=== PATIENT | male | born 1940 | race Caucasian/White ===

== ENCOUNTER → 2016-06-14 | Outpatient (CLI) | payer OTHER | LOC: BHCLAF 14:45 | PROVIDERS: ATTEND Internal Medicine Cardiovascular Disease | DX: I48.91 Unspecified atrial fibrillation (principal); I10 Essential (primary) hypertension | CPT/HCPCS: 93306-PO ==

== ENCOUNTER → 2016-07-04 | Outpatient (CLI) | payer OTHER | LOC: BHFA 14:00 | PROVIDERS: ATTEND Internal Medicine Cardiovascular Disease | DX: I48.91 Unspecified atrial fibrillation (principal); I50.32 Chronic diastolic (congestive) heart failure; I36.1 Nonrheumatic tricuspid (valve) insufficiency ==

== ENCOUNTER 2016-07-11 08:54 | Day surgery (SDC) | payer OTHER ==
[2016-07-11] MEDS ORDERED: DIAZEPAM 5 MG TAB PO ONE (08:59)
[2016-07-11] MEDS ORDERED: ASPIRIN EC 325 MG TAB PO ONE (08:59)
[2016-07-11] MEDS ORDERED: diphenhydrAMINE 25 MG CAP PO ONE (08:59)
[2016-07-11] MEDS ORDERED: NS 1,000 ML IV ONE (08:59)
[2016-07-11] MEDS ORDERED: FAMOTIDINE 20 MG TAB PO ONE (08:59)
[2016-07-11] MEDS ORDERED: BENZOCAINE UNIT DOSE SPRAY HURRICAINE MM ONE (08:59)
[2016-07-11] MEDS ORDERED: MIDAZOLAM 2 MG/2 ML VIAL IVP ONE (08:59)
[2016-07-11] MEDS ORDERED: fentaNYL 100 MCG/2 ML INJ IVP ONE (08:59)
--- NOTE | 2016-07-11 09:21 | CPEKG ---
Heart Rate: 80 RR Interval: 750 QRSD Interval: 84 QT Interval: 408 QTC Interval: 471 QRS [place]: 36 T Wave [place]: -31 EKG Severity - ABNORMAL ECG - EKG Impression: ATRIAL FIBRILLATION, V-RATE 68-94 EKG Impression: BORDERLINE T ABNORMALITIES, INFERIOR LEADS Electronically Signed By: Lamberto Grayson 11-Jul-2016 16:12:38
[2016-07-11 09:44] LABS: % IMMATURE GRANULYOCYTES 0.2 % (0.0-1.1); ABSOLUTE IMMATURE GRANULOCYTES 0.01 10^3/uL (0.00-0.10); ADD DIFF? NO; ADD MORPH? NO; ADD SCAN? NO; ATYPICAL LYMPHOCYTE FLAG 20 (0-99); FRAGMENT RBC FLAG 0 (0-99); HEMATOCRIT 40.1 % (40.0-51.0); HEMOGLOBIN 12.9 g/dL (13.7-17.5); LEFT SHIFT FLG 0 (0-99); LIPEMIA HEMOLYSIS FLAG 80 (0-99); MEAN CELL HEMOGLOBIN 29.9 pg (27.9-34.1); MEAN CELL HEMOGLOBIN CONCENTR. 32.2 g/dL (32.4-36.7); MEAN PLATELET VOLUME 10.4 fL (8.7-11.7); PLATELET CLUMPS FLAG 0 (0-99); PLATELET COUNT 252 10^3/uL (150-400); RED BLOOD CELL COUNT 4.31 10^6/uL (4.40-6.38)
[2016-07-11 09:46] LABS: INR 1.04 (0.83-1.16); PROTIME(PATIENT) 13.5 SEC (12.0-15.0)
[2016-07-11 09:54] LABS: ANION GAP 9 mEq/L (8-16); CALCIUM 9.6 mg/dL (8.5-10.4); CARBON DIOXIDE 31 mEq/l (22-31); CHLORIDE 99 mEq/L (97-110); CHOLESTEROL 172 mg/dL (140-220); CHOLESTEROL/HDL RATIO 3.74 RATIO (1.00-4.97); CREATININE 1.2 mg/dL (0.7-1.3); GLOMERULAR FILTRATION RATE 59; GLUCOSE 94 mg/dL (70-100); HIGH DENSITY LIPOPROTEIN 46 mg/dL (40-65); LDL/HDL RATIO 2.26 RATIO (1.00-3.64); LOW DENSITY LIPOPROTEIN 104 mg/dL (80-100); MAGNESIUM 2.3 mg/dL (1.6-2.3); NON-HIGH DENSITY LIPOPROTEIN 126 mg/dL (90-129); POTASSIUM 4.5 mEq/L (3.5-5.2); SODIUM 139 mEq/L (134-144); TRIGLYCERIDE 114 mg/dL (40-150); VERY LOW DENSITY LIPOPROTEINS 22 mg/dL (8-25)
[2016-07-11] MEDS ORDERED: fentaNYL 100 MCG/2 ML INJ ONE (10:46)
[2016-07-11] MEDS ORDERED: LIDOCAINE 1% 30 ML SDV ONE (10:46)
[2016-07-11] MEDS ORDERED: MIDAZOLAM 2 MG/2 ML VIAL ONE (10:46)
[2016-07-11] MEDS ORDERED: IOPAMIDOL (ISOVUE 370) 100 ML BTL IV ONE (10:47)
[2016-07-11] MEDS ORDERED: ATROPINE SULFATE 1 MG/10 ML SYR ONE (12:30)
[2016-07-11] MEDS ORDERED: HYDROCODONE/APAP 10/325 TAB PO ONE (13:00)
--- NOTE | 2016-07-11 13:37 | CPIP ---
[f rep st] INVASIVE CARDIAC PROCEDURE DATE OF PROCEDURE: 07/11/2016 PROCEDURES: 1. Coronary angiography. 2. Left ventriculography. 3. Right heart catheterization. INDICATION: Dyspnea on exertion, concerning for class II to III angina versus heart failure. ACCESS: Patient was prepped and draped in a sterile fashion. 1% lidocaine was used to anesthetize the right inguinal region. A 6-Welsh introducer sheath was placed selectively into the right commo n femoral artery via modified Seldinger technique. A 7-Welsh introducer sheath was placed selectiv yudith into the right common femoral vein via modified Seldinger technique. CORONARY ANGIOGRAPHY: A 6-Welsh JL4 was advanced to the left main coronary artery and images obtai nubia. The left main coronary artery bifurcated into an LAD and circumflex coronary arteries. The le ft main coronary artery appeared normal. The left anterior descending coronary artery gave rise to 2 diagonal branches. The left anterior descending coronary artery had mild luminal regularities thr oughout. There was no stenosis greater than 20%. The diagonal arteries were free of any significan t disease. The circumflex coronary artery gave rise to 2 OM branches. The circumflex coronary shay ry and its complement of OM branches appeared normal. A 6-Welsh JR4 was advanced to the right figueroa nary artery and images obtained. The right coronary artery was dominant. The right coronary artery had mid sequential 20% stenoses present. LEFT VENTRICULOGRAPHY: A 6-Welsh pigtail catheter was advanced into the left ventricle and images obtained. Left ventricle was normal in size with normal systolic function. Estimated ejection frac tion was 55%. RIGHT HEART CATHETERIZATION: Right heart catheter was advanced into the right atrium and pressure o btained. The right atrial pressure was 8 mmHg. The catheter was then advanced in the right ventric le and pressure obtained. The right ventricular pressure was 30/7 mmHg. Catheter was then advanced to the pulmonary artery and pressure obtained. The pulmonary artery pressure was 30/9 mmHg with a mean pulmonary artery pressure of 18 mmHg. The catheter was then advanced in wedge position and pre ssure obtained. The pulmonary capillary wedge pressure was 10 mmHg. Femoral artery saturation was 94%. Pulmonary artery saturation was 66%. Cardiac output 4.70, cardiac index 2.54. COMPLICATIONS: None. CONCLUSIONS: 1. Mild coronary artery disease without flow limitation. 2. Normal left ventricular size and systolic function. 3. No evidence of pulmonary hypertension. /[id number]/MODL
[2016-07-11] MEDS ORDERED: HYDROCODONE/APAP 5/325 TAB PO PRN (14:30)
== END 2016-07-11 16:45 | disposition home or self-care (01) ==
LOC: FCATH 08:54
PROVIDERS: ATTEND Internal Medicine Cardiovascular Disease
PROC: 4A023N8 Measurement of Cardiac Sampling and Pressure, Bilateral, Percutaneous Approach (ICD-10-PCS; principal; 2016-07-11)
PROC: B2161ZZ Fluoroscopy of Right and Left Heart using Low Osmolar Contrast (ICD-10-PCS; principal; 2016-07-11)
PROC: B2111ZZ Fluoroscopy of Multiple Coronary Arteries using Low Osmolar Contrast (ICD-10-PCS; principal; 2016-07-11)
PROC: B244ZZ4 Ultrasonography of Right Heart, Transesophageal (ICD-10-PCS; principal; 2016-07-11)
DX: I36.1 Nonrheumatic tricuspid (valve) insufficiency (principal); R06.02 Shortness of breath; I25.10 Atherosclerotic heart disease of native coronary artery without angina pectoris; I48.91 Unspecified atrial fibrillation; I50.32 Chronic diastolic (congestive) heart failure; Z88.2 Allergy status to sulfonamides
CPT/HCPCS: C1760; J0461; J1644; J2250; J3010; Q9967

== ENCOUNTER 2017-06-04 11:55 | Inpatient (IN) | payer OTHER ==
[2017-06-04] MEDS ORDERED: VANCOMYCIN HCL/NORMAL SALINE 250 ML IV ONE (12:51)
[2017-06-04] MEDS ORDERED: NS 1,000 ML IV ONE (12:51)
--- NOTE | 2017-06-04 12:57 | EDPHY ---
H & P Stated Complaint: R leg infection Time Seen by Provider: 06/04/17 12:26 HPI/ROS: CHIEF COMPLAINT: Right leg infection HISTORY OF PRESENT ILLNESS: Patient is a 76-year-old man with peripheral vascular disease as well as AFib on Coumadin who comes to the emergency department complaining of an infection to his right lower leg. He 1st noticed about 2 weeks ago and was started on Keflex by his primary doctor. This did not work and he stop taking it after for 5 days. He was then switched to Levaquin however he refuses to take this because of the side effects he read about. He has not had a fever. No chest pain or shortness of breath. He does report a history of CHF as well. REVIEW OF SYSTEMS: Constitutional: denies: chills, fever, recent illness, recent injury EENTM: denies: blurred vision, double vision, nose congestion Respiratory: denies: cough, shortness of breath Cardiac: denies: chest pain, irregular heart rate, lightheadedness, palpitations Gastrointestinal/Abdominal: denies: abdominal pain, diarrhea, nausea, vomiting, blood streaked stools Genitourinary: denies: dysuria, frequency, hematuria, pain Musculoskeletal: denies: joint pain, muscle pain Skin: See HPI Neurological: denies: headache, numbness, paresthesia, tingling, dizziness, weakness Hematologic/Lymphatic: denies: blood clots, easy bleeding, easy bruising Immunologic/allergic: denies: HIV/AIDS, transplant EXAM: GENERAL: Well-appearing, well-nourished and in no acute distress. HEAD: Atraumatic, normocephalic. EYES: Pupils equal round and reactive to light, extraocular movements intact, sclera anicteric, conjunctiva are normal. ENT: TMs normal, nares patent, oropharynx clear without exudates. Moist mucous membranes. NECK: Normal range of motion, supple without lymphadenopathy or JVD. LUNGS: Breath sounds clear to auscultation bilaterally and equal. No wheezes rales or rhonchi. HEART: Regular rate and rhythm without murmurs, rubs or gallops. ABDOMEN: Soft, nontender, normoactive bowel sounds. No guarding, no rebound. No masses appreciated. BACK: No CVA tenderness, no spinal tenderness, step-offs or deformities EXTREMITIES: Normal range of motion, no pitting or edema. No clubbing or cyanosis. NEUROLOGICAL: Cranial nerves II through XII grossly intact. Normal speech, normal gait. 5/5 strength, normal movement in all extremities, normal sensation PSYCH: Normal mood, normal affect. SKIN: Abscess like mast posterior right lower leg. Some purulent drainage when squeeze but extremely tender. Layers of moist skin. Source: Patient, Family Exam Limitations: No limitations - Personal History Current Tetanus/Diphtheria Vaccine: No Current Tetanus Diphtheria and Acellular Pertussis (TDAP): No - Medical/Surgical History Hx Asthma: No Hx Chronic Respiratory Disease: No Hx Diabetes: No Hx Cardiac Disease: Yes Hx Renal Disease: No Hx Cirrhosis: No Hx Alcoholism: No Hx HIV/AIDS: No Hx Splenectomy or Spleen Trauma: No Other PMH: appy, tonsilectomy, R hip replacement, cardiac ablation, afib, CVA, LARISA inguinal hernias, hydrocele L testicle, arthritis, - Family History Significant Family History: No pertinent family hx - Social History Smoking Status: Former smoker Alcohol Use: Sober Constitutional: Initial Vital Signs Temperature (C) 36.8 C 06/04/17 12:08 Heart Rate 97 06/04/17 12:08 Respiratory Rate 16 06/04/17 12:08 Blood Pressure 102/66 06/04/17 12:08 O2 Sat (%) 94 06/04/17 12:08 O2 Delivery Mode Room Air O2 (L/minute) 2 Allergies/Adverse Reactions: Sulfa (Sulfonamide Antibiotics) Allergy (Unknown, Verified 06/05/17 00:58) amiodarone [Amiodarone] Allergy (Verified 06/04/17 12:05) amlodipine Allergy (Verified 06/05/17 00:58) Home Medications: Medication Instructions Recorded Aspirin EC [Aspirin EC 81 mg (*)] 81 mg PO HS 06/04/17 Furosemide [Lasix 20 MG (*)] 20 mg PO BID@0730,13 06/04/17 Furosemide [Lasix 80 MG (*)] 80 mg PO BID@0730,13 06/04/17 HYDROcodone/APAP [[place] 1 tab PO Q6 PRN 06/04/17 10325 (*)] Herbals/Supplements -Info Only 1 ea PO DAILY 06/04/17 Metoprolol Tartrate [Lopressor 50 50 mg PO BID 06/04/17 mg (*)] Spironolactone [Aldactone 25 MG 25 mg PO DAILY 06/04/17 (*)] Temazepam 30 mg PO HS PRN 06/04/17 Warfarin Sodium [Coumadin 5MG (*)] 5 mg PO DAILY16 06/04/17 morphINE SR [MS Contin/Oramorph SR 30 mg PO BID 06/04/17 30 mg (*)] Medical Decision Making ED Course/Re-evaluation: Patient will certainly need to be admitted to the hospital. We will initiate sepsis workup. I think he will need I and D likely under anesthesia considering the pain he is having. 2:30 p.m. the patient's lactate is normal. He is not septic. I do think he will require admission because he has failed outpatient oral antibiotic therapy and has rather severe pain. I discussed the case with Dr. Pena who will admit to the medical service. I will consult general surgery. 3:00 p.m. I discussed the case with Dr. Christian Carrington who will consult. Differential Diagnosis: Partial list of the Differential diagnosis considered include but were not limited to; peripheral vascular disease, abscess, cellulitis and although unlikely based on the history and physical exam, I also considered osteomyelitis , fasciitis, diabetes. - Data Points Laboratory Results: Laboratory Results 06/04/17 12:40 06/04/17 12:40 Medications Given: Acetaminophen (Tylenol) 650 mg PO Q4HRS PRN PRN Reason: Pain, Mild/Fever, Can Take PO Stop: 12/01/17 14:51 Last Admin: 06/04/17 22:35 Dose: 325 mg Hydrocodone Bitart/Acetaminophen ([place] 10/325) 1 tab PO Q6 PRN PRN Reason: Pain, Breakthrough Stop: 06/14/17 15:12 Last Admin: 06/05/17 00:23 Dose: 1 tab Ceftriaxone Sodium/Dextrose (Rocephin 1 Gm (Premix)) 50 mls @ 100 mls/hr IV DAILY DAV PRN Reason: Protocol Stop: 07/04/17 16:59 Last Admin: 06/04/17 17:37 Dose: 50 mls Metoprolol Tartrate (Lopressor) 50 mg PO BID DAV Stop: 12/01/17 20:59 Last Admin: 06/05/17 00:36 Dose: Not Given Morphine Sulfate (Ms Contin/Oramorph Sr) 30 mg PO BID DAV Stop: 06/14/17 20:59 Last Admin: 06/04/17 22:32 Dose: 30 mg Morphine Sulfate (Morphine) 2 - 4 mg IVP Q1HR PRN PRN Reason: Pain, Severe Unable to Take PO Stop: 06/15/17 02:03 Last Admin: 06/05/17 04:53 Dose: 2 mg Discontinued Medications Bacitracin (Bacitracin Syringe) Confirm Administered Dose 50,000 units IRR .STK- MED ONE Stop: 06/04/17 19:11 Last Admin: 06/05/17 01:59 Dose: Not Given Bupivacaine HCl (Sensorcaine 0.5% Vial) Confirm Administered Dose 30 ml .ROUTE .STK-MED ONE Stop: 06/04/17 19:09 Last Admin: 06/05/17 02:00 Dose: Not Given Fentanyl (Sublimaze) 25 - 100 mcg IVP Q5M PRN PRN Reason: PACU, IMMEDIATE Pain control Stop: 06/05/17 03:23 Last Admin: 06/05/17 02:40 Dose: 50 mcg Hydromorphone HCl (Dilaudid) 1 mg IVP EDNOW ONE Stop: 06/04/17 12:59 Last Admin: 06/04/17 13:23 Dose: 1 mg Hydromorphone HCl (Dilaudid) 0.1 - 0.4 mg IVP Q10M PRN PRN Reason: PACU, PAIN Stop: 06/05/17 03:23 Last Admin: 06/05/17 02:40 Dose: 0.4 mg Vancomycin/Sodium Chloride (Vancomycin 1 Gm (Premix)) 250 mls @ 250 mls/hr IV EDNOW ONE PRN Reason: Protocol Stop: 06/04/17 13:50 Last Admin: 06/04/17 13:41 Dose: 250 mls Sodium Chloride (Ns) 1,000 mls @ 0 mls/hr IV EDNOW ONE; Wide Open PRN Reason: Protocol Stop: 06/04/17 12:52 Last Admin: 06/04/17 13:22 Dose: 1,000 mls Lactated Ringer's (Lr) 1,000 mls @ 0 mls/hr IV ONCE ONE PRN Reason: KVO Stop: 06/05/17 00:49 Last Admin: 06/05/17 00:50 Dose: 1,000 mls Polymyxin B Sulfate (Polymyxin B Syringe) Confirm Administered Dose 500,000 unit IRR .STK-MED ONE Stop: 06/04/17 19:09 Last Admin: 06/05/17 02:00 Dose: Not Given Departure - Departure Disposition: [facility] Inpatient Acute Clinical Impression: Abscess of right leg Condition: Fair
[2017-06-04] MEDS ORDERED: HYDROmorphONE/DILAUDID 1 MG/ML INJ IVP ONE (12:58)
[2017-06-04 13:12] LABS: PLATELET COUNT 221 10^3/uL (150-400)
[2017-06-04 13:13] LABS: INR 2.32 (0.83-1.16); PROTIME(PATIENT) 25.5 SEC (12.0-15.0)
[2017-06-04] MEDS ORDERED: ONDANSETRON 4 MG/2 ML VIAL IVP PRN (14:52)
[2017-06-04] MEDS ORDERED: ACETAMINOPHEN 325 MG TAB PO PRN (14:52)
[2017-06-04] MEDS ORDERED: ONDANSETRON DISINTEGRATING 4 MG TAB PO PRN (14:52)
--- NOTE | 2017-06-04 15:40 | PDCONSULT ---
[employer] Note: 76 y/o male with right calf infection treated as an outpatient for the past week with Keflex. His pain became worse today and he came to the [facility] ED for evaluation. Surgical consultation was requested Past Medical History PMH: - Personal History Current Tetanus/Diphtheria Vaccine: Unsure Current Tetanus Diphtheria and Acellular Pertussis (TDAP): Unsure - Medical/Surgical History Hx Asthma: No Hx Chronic Respiratory Disease: Yes Hx Cardiac Disease: Yes Hx Diabetes: No Hx Renal Disease: No Hx Alcoholism: No Hx Cirrhosis: No Hx HIV/AIDS: No Hx Splenectomy or Spleen Trauma: No Other PMH: appy, tonsilectomy, R hip replacement, cardiac ablation, afib, CVA, LARISA inguinal hernias, hydrocele L testicle, arthritis, - Family History Significant Family History: No pertinent family hx - Social History Smoking Status: Former smoker Alcohol Use: Rarely Drug Use: None Additional Social History: Daughter at bedside/ Review of Systems Review of Systems: - Review of Systems Constitutional: recent injury (fell on his right side about one month ago and has had hip pain since then) Respiratory: shortness of breath, other (Hx [place] exposure at [place]) Cardiac: edema Gastrointestinal/Abdominal: no symptoms reported Genitourinary: other (wears a truss for bilateral inguinal hernias) Musculoskelatal: back pain (chronic following injury 1970), joint pain (right hip) Skin: other (swelling right lateral calf started about one week ago/spontaneous drainage-not improved with po Keflex) Neurological: other (Hx CVA) - Physical Exam Constitutional: chronically ill appearing, uncomfortable Eyes: anicteric sclera Cardiovascular: systolic murmur, irregularly irregular Respiratory: reduced air movement, bronchial breath sounds Gastrointestinal: soft, non-tender abdomen Genitourinary: no bladder fullness, no bladder tenderness, other (wearing a truss/no inguinal tenderness/right scrotal hernia) Skin: other (decreased capillary refill bilateral feet/pedal pulses not palpable ) Musculoskeletal: joint tenderness (right hip), other (6 x 8 cm raised open wound right mid lateral calf/surrounding erythema/moderate necrotic tissue at center) Psychiatric: interacting appropriately, other (in pain) Assessment & Plan Assessment: Abscess of right leg (Acute) Anticoagulation with Coumadin INR 2.3 Hx CHF with moderated edema chronic respiratory disease/Berrylium exposure/former smoker Peripheral Vascular disease Hx Prostate Cancer Bilateral inguinal hernias Recent (2016) right NICA with pain after fall one month ago Chronic Back pain post remote injury Plan: Reverse anticoagulation with FFP to OR for operative debridement when INR 1.5-1.8 possible wound vac application I discussed the procedure with Mr. Devine and his daughter including the expected recovery and riske. Informed consent was obtained Ofelia Carrington MD, FACS
--- NOTE | 2017-06-04 17:22 | GHP ---
[f rep st] HISTORY AND PHYSICAL DATE OF ADMISSION: 06/04/2017 CHIEF COMPLAINT: Right leg wound. HISTORY OF PRESENT ILLNESS: A 76-year-old male with history of diastolic heart failure, atrial fibrillation, stroke in June 2016, presenting with a right calf leg wound. He said he noticed a lump in the back of his calf about a month ago, the size of a walnut. It was bulging. It has become larger and then started leaking clear yellowish fluid a week ago. Denies any fevers, chills, sweats. No nausea, vomiting, diarrhea. No headaches. No myalgias. He has underwent right NICA in November at [facility] [place]. He has had pain in that hip for about a month after falling. He hit his ribs during that fall but denies trauma to the leg. He has chronic back pain, which he takes MS Contin. He went to his PCP, was treated with Keflex. This was not working so they wanted to switch him to Levaquin, but the patient declined this medication after reading all the side effects, thus he came to the ER. REVIEW OF SYSTEMS: I completed a 10-point review of systems. 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 PAST MEDICAL HISTORY: Diastolic heart failure. Stroke in June 2016 at [facility] [place]. Atrial fibrillation. Mild coronary disease on catheterization in 2016. Severe TR on AMANDA in June 2016. History of atrial arrhythmias. Prostate cancer. Beryllium lung disease. Chronic back pain. Bilateral hernias. PAST SURGICAL HISTORY: Right NICA in October 2016, radical prostatectomy, history of ablation. SOCIAL HISTORY: Lives in [facility]. He is . No alcohol, tobacco , or illicits. FAMILY HISTORY: Mother with a stroke. MEDICATIONS: Lasix 100 mg twice daily, herbal supplement, aspirin 81 mg daily, Joseph as needed, temazepam 30 mg at bedtime p.r.n., spironolactone 25 mg daily, MS Contin 30 mg twice daily, metoprolol 50 mg twice daily, Coumadin 5 mg daily. ALLERGIES: Sulfa, amiodarone. PHYSICAL EXAMINATION: VITAL SIGNS: Temperature 36.8, blood pressure 136/101, heart rate 70s, respirations 18, 98% on room air. GENERAL: Thin male lying in bed, uncomfortable. HEENT: PERRLA. Mildly dry mucous membranes. CV: Regular rate and rhythm. LUNGS: Diminished but clear. ABDOMEN: Soft, nontender. Has a binder in place. : No Argueta. MUSCULOSKELETAL: Left calf with golf ball sized wound, with some necrosis and weeping serosanguineous yellowish discharge. Erythema of bilateral legs with edema. Pedal pulses not palpable with palpation. NEUROLOGIC: 2 through 12 intact. PSYCH: Alert and oriented x3. LABS: WBC is 5, hemoglobin 12, hematocrit 37, platelets 221. Lactate 1.1. Sodium 140, potassium 4.2, chloride 97, anion gap 14, BUN 25, creatinine 1, glucose 106, calcium 9, total bilirubin 0.7. INR is 2.3. Hip x-ray is pending. Chest x-ray, personally reviewed by me, reticular pattern bilaterally, hyperexpanded lungs. No infiltrate. ASSESSMENT AND PLAN: 1. Right calf abscess/cellulitis: evaluated by Dr. Carrington, plans for debridement today. We will give FFP to reverse INR. Wound culture 1/5 positive for Serratia. IV vancomycin/ceftriaxone. Consult Infectious Disease. Will likely need a wound VAC. 2. Atrial fibrillation: Again, will need reversal of INR. We will continue beta ramakrishna. 3. Diastolic heart failure: Continue beta ramakrishna, Lasix. 4. Chronic back pain: MS Contin and Joseph. 5. Hip pain: He does report pain in that hip. We will start with an x-ray, but would be concern of seeding to that joint. Blood cultures were drawn in the emergency department. 6. History of prostate cancer status post prostatectomy. 7. Diet: N.p.o. for now. 8. Deep venous thrombosis prophylaxis: INR is supratherapeutic. DISPOSITION: Patient warrants inpatient admission for IV antibiotics, surgical intervention, and Infectious Disease consultation. /[id number]/MODL MTDD
[2017-06-04] MEDS: HYDROCODONE/APAP 10/325 TAB PO PRN (18:19)
[2017-06-04] MEDS ORDERED: POLYMYXIN B SULFATE 500,000 UNIT/10 ML SYR IRR ONE (19:08)
[2017-06-04] MEDS ORDERED: BUPIVACAINE 0.5% 30 ML SDV ONE (19:08)
[2017-06-04] MEDS ORDERED: BACITRACIN 50,000 UNITS/10 ML SYR IRR ONE (19:10)
--- NOTE | 2017-06-04 19:44 | SOAPPROG ---
Downtime Inpatient MD Late Entry SOAP Note: Patient has not yet received FFP/will delay surgery until after FFP transfused and INR confirms appropriate decline in INR. Discussed with patient's RN. Ofelia Carrington MD, FACS
--- NOTE | 2017-06-04 20:03 | CPEKG ---
Heart Rate: 92 RR Interval: 652 QRSD Interval: 92 QT Interval: 360 QTC Interval: 446 QRS [place]: 77 T Wave [place]: -31 EKG Severity - ABNORMAL ECG - EKG Impression: ATRIAL FIBRILLATION, V-RATE 81-92 EKG Impression: LOW VOLTAGE IN FRONTAL LEADS EKG Impression: BORDERLINE R WAVE PROGRESSION, ANTERIOR LEADS EKG Impression: NONSPECIFIC T ABNORMALITIES, DIFFUSE LEADS Electronically Signed By: Beni Bucio 05-Jun-2017 07:28:50
[2017-06-04] MEDS: morphINE SR 30 MG TAB PO SCH (22:32)
[2017-06-04 23:55] LABS: INR 1.99 (0.83-1.16); PROTIME(PATIENT) 22.7 SEC (12.0-15.0)
[2017-06-05] MEDS: HYDROCODONE/APAP 10/325 TAB PO PRN ×3 (00:23→19:59)
[2017-06-05] MEDS: METOPROLOL TARTRATE 50 MG TAB PO SCH ×3 (00:36→22:23)
[2017-06-05] MEDS ORDERED: LR 1,000 ML IV ONE (00:48)
[2017-06-05] MEDS ORDERED: PROPOFOL 200 MG/20 ML VIAL ONE (01:12)
[2017-06-05] MEDS ORDERED: fentaNYL 100 MCG/2 ML INJ ONE ×4 (01:12→02:37)
[2017-06-05] MEDS ORDERED: LIDOCAINE 2% 5 ML SDV ONE (01:13)
--- NOTE | 2017-06-05 02:00 | POSTANESTH ---
Post Anesthetic Evaluation Cardiovascular Status: Normal, Stable Respiratory Status: Normal, Stable Level of Consciousness/Mental Status: Can Participate in Eval, Mildly Sleepy, Arousable Pain Control: Adequate, Prn Tx Ordered Nausea/Vomiting Control: Adequate, Prn Tx Ordered Complications Possibly Related to Anesthesia: None Noted
--- NOTE | 2017-06-05 02:01 | PDANEPAE ---
ANE History of Present Illness Calf I&D ANE Past Medical History - Pulmonary History Hx Oxygen in Use at Home: No Hx Sleep Apnea: Yes Sleep Apnea Screening Result - Last Documented: Positive - Endocrine History Hx Diabetes: No ANE Review of Systems Review of Systems: ANE Patient History - Allergies Allergies/Adverse Reactions: Sulfa (Sulfonamide Antibiotics) Allergy (Unknown, Verified 06/05/17 00:58) amiodarone [Amiodarone] Allergy (Verified 06/04/17 12:05) amlodipine Allergy (Verified 06/05/17 00:58) - Home Medications Home Medications: Aspirin EC [Aspirin EC 81 mg (*)] 81 mg PO HS 06/04/17 [Last Taken 06/03/17] Furosemide [Lasix 20 MG (*)] 20 mg PO BID@0730,13 06/04/17 [Last Taken 06/03/17] Furosemide [Lasix 80 MG (*)] 80 mg PO BID@0730,13 06/04/17 [Last Taken 06/03/17] HYDROcodone/APAP 10/325 [[place] 10/325 (*)] 1 tab PO Q6 PRN 06/04/17 [Last Taken 06/03/17] Herbals/Supplements -Info Only 1 ea PO DAILY 06/04/17 [Last Taken 06/03/17] Metoprolol Tartrate [Lopressor 50 mg (*)] 50 mg PO BID 06/04/17 [Last Taken 02/10] Spironolactone [Aldactone 25 MG (*)] 25 mg PO DAILY 06/04/17 [Last Taken ] Temazepam 30 mg PO HS PRN 06/04/17 [Last Taken 06/03/17] Warfarin Sodium [Coumadin 5MG (*)] 5 mg PO DAILY16 06/04/17 [Last Taken 06/03/17 ] morphINE SR [MS Contin/Oramorph SR 30 mg (*)] 30 mg PO BID 06/04/17 [Last Taken 06/03/17] - NPO status NPO Since - Liquids (Date): 06/04/17 NPO Since - Liquids (Time): 10:00 NPO Since - Solids (Date): 06/04/17 NPO Since - Solids (Time): 10:00 - Smoking Hx Smoking Status: Never smoked - Alcohol Use Alcohol Use: Rarely ANE Labs/Vital Signs - Labs Result Diagrams: 06/04/17 12:40 06/04/17 12:40 - Vital Signs Blood Pressure: 96/51 Heart Rate: 79 Respiratory Rate: 16 O2 Sat (%): 97 Height: 175.26 cm Weight: 60.7 kg ANE Physical Exam - Airway Neck exam: decreased ROM Mallampati Score: Class 2 Mouth exam: poor dentition - Pulmonary Pulmonary: reduced air movement - Cardiovascular Cardiovascular: regular rate and rhythym - ASA Status ASA Status: III, E ANE Anesthesia Plan Anesthesia Plan: GA w LMA
--- NOTE | 2017-06-05 02:01 | POSTOPPROG ---
Post Op Note Date of Operation: 06/05/17 Surgeon: Christian Carrington (, FACS) Anesthesiologist: Dave Rasmussen DO Anesthesia: LMA Pre-op Diagnosis: right posterior-lateral calf abscess Post-op Diagnosis: right posterior-lateral calf abscess Procedure: excision of right posterior-lateral calf abscess and necrotic tissue Inf/Abcess present in the surg proc area at time of surgery?: Yes Depth: Deep Incisional (Fascial) EBL: 50-100 (75ml) Complications: none Specimen(s): necrotic skin, subcutaneous tissue for permanent section and culture
[2017-06-05] MEDS ORDERED: HYDROmorphONE/DILAUDID 1 MG/ML INJ ONE ×2 (02:13→02:38)
[2017-06-05] MEDS: HYDROmorphONE/DILAUDID 1 MG/ML INJ IVP PRN ×3 (02:18→02:40)
[2017-06-05] MEDS: fentaNYL 100 MCG/2 ML INJ IVP PRN ×3 (02:18→02:40)
[2017-06-05] MEDS ORDERED: ONDANSETRON 4 MG/2 ML VIAL IVP PRN (02:22)
[2017-06-05] MEDS ORDERED: ALBUTEROL 3 ML DEYVIAL IH PRN (02:22)
[2017-06-05] MEDS ORDERED: NALOXONE HCL 0.4 MG/ML INJ IVP PRN (02:22)
[2017-06-05 05:35] LABS: INR 2.28 (0.83-1.16); PROTIME(PATIENT) 25.1 SEC (12.0-15.0)
--- NOTE | 2017-06-05 07:22 | GOP ---
[f rep st] OPERATIVE REPORT DATE OF OPERATION: SURGEON: Christian Carrington MD ANESTHESIA: General by laryngeal mask. ANESTHESIOLOGIST: Dave Rasmussen D.O. PREOPERATIVE DIAGNOSIS: Right posterolateral calf abscess. POSTOPERATIVE DIAGNOSIS: Right posterolateral calf abscess. PROCEDURE PERFORMED: Wide excision of right posterolateral calf abscess, including necrotic skin and deep subcutaneous tissues. FINDINGS: Approximately 4 x 6 cm raised area of necrotic skin and subcutaneous tissues, with a centr al draining fistula tract extending into the deep subcutaneous tissues and the superficial fascia, bu t no involvement of the musculature. Excised tissue submitted for permanent section and deep wound c ultures obtained. ESTIMATED BLOOD LOSS: For the procedure: 75 mL. DESCRIPTION OF PROCEDURE: After informed consent was obtained, the patient was brought to the operat ing room and placed under general anesthesia. He had received 3 units of fresh frozen plasma. His I NR after the first 2 was 1.99, and I elected to proceed with surgery while the third unit was infusin g. The right leg was prepped and draped in usual fashion. Before proceeding, a time-out and identif ication of the patient were performed. The large raised purplish lesion on the right posterolateral calf was excised circumferentially with a scalpel down to healthy bleeding tissue. This approached t he deep fascia, but did not involve the muscle. Hemostasis was secured with cautery. The surroundin g skin was macerated, excoriated, and had significant superficial dermolysis, and I elected not to pl richa a wound VAC initially. The deep wound was covered with Adaptic gauze, followed by saline-moisten ed Kerlix, and wrapped circumferentially. COMPLICATIONS: None . /[id number]/MODL
[2017-06-05] MEDS: FUROSEMIDE 20 MG TAB PO SCH ×2 (08:57→13:28)
[2017-06-05] MEDS: FUROSEMIDE 80 MG TAB PO SCH ×2 (08:57→13:28)
[2017-06-05] MEDS: LR 1,000 ML IV SCH (08:57)
--- NOTE | 2017-06-05 08:57 | HOSPPROG ---
Hospitalist Progress Note Assessment/Plan: DIAGNOSES: -R calve abscess, presumably bacterial w pending cx's; s/p surgical debridement/ excision of skin and subQ tissues 06/04 -hypotension: I do not think he is currnetly septic, ? if he might be bleeding occultly overnight, vs other cause -acute anemia has developed overnight with no visible bleeding or symptoms of bleeding; cause uncertain -I did review past lab data, has chronic Hg 12+ last measured a month ago before yesterday -R hip pain is resolved since yest: xrays with no concerning findings -chronic berylliosis, Interstitial Lung seen on current CXR; currently stable -no pulmonary HTN a year ago on R heart cath here -Heart Disease stable/compensated at present: -AFib, intermittent on chronic coumadin, currently therapeutic -Mild CAD noted on angiography one year ago, -Diastolic CHF, Tricuspid Regurg -chronic none radicular back pain, severe is at his baseline at this time; this is fairly debilitated for him and will slow his recovery to full ambulation The appears overall early stable overnight but the low blood pressures an new anemia of fairly concerning. To need to be followed closely in the may need to do surge for cause anemia. I did him his wound with the fashion photographer today, the wound bed looks good there is minimal serous fluid with no significant bleeding. There is still some surrounding cellulitis and quite bit of tenderness. PLANS: -continue current antibiotics pending cultures -continue wound care and reviews with wound care nurse and Dr. Carrington -repeat hemoglobin at mid day today, follow for any signs of bleeding. If anemia is confirmed and no sign of bleeding, will check for hemolysis -will hold Coumadin and aspirin at this point, with further consideration of when to resume based upon his blood counts and whether we find any bleeding. 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, 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: Exam: alert oriented skin warm dry color ok; capillary refill is slightly diminished but fingers and toes are warm resps not labored lungs clear BSs heart regular abd soft nondistended nontender, bowel sounds present limbs I reviewed his wound with the fashion photographer, there is some surrounding cellulitis with edema redness and tenderness, the wound bed itself is clean without purulent drainage minimal serosanguineous drainage no concerning acute issue at this time no fluctuance on my exam iv site ok Laboratory data: Hemoglobin dropped from 12 to 8 since last night, I review past records and his hemoglobin has been running in the 12.5 range in the past, most recently measured last month Platelets have dropped slightly overnight to 120 Metabolic panel remained stable I did review the images for his hip x-ray from last evening, he has a by pole prosthesis in place well seated with no signs of loosening, no other skeletal abnormalities and no air other soft tissue abnormality Objective: Vital Signs Temp Pulse Resp BP Pulse Ox 36.8 C 81 16 93/50 L 95 06/05/17 06:08 06/05/17 06:08 06/05/17 06:08 06/05/17 06:08 06/05/17 06:08 Laboratory Results 06/05/17 05:00 06/05/17 05:00 06/04/17 06/05/17 06/06/17 06:59 06:59 06:59 Intake Total 2933 Output Total 525 Balance 2408 PT 25.1 SEC (12.0-15.0) H 06/05/17 05:00 INR 2.28 (0.83-1.16) H 06/05/17 05:00 - Time Spent With Patient Time Spent with Patient: greater than 35 minutes Time Spent with Patient: Greater than 35 minutes spent on this patients care, greater than 50% of time spent counseling, educating, and coordinating care regarding the above mentioned plan. ICD10 Worksheet Patient Problems: Problems Problem Status Onset Abscess of right leg Acute
[2017-06-05] MEDS ORDERED: Herbals/Supplements -Info Only PO SCH (09:00)
[2017-06-05] MEDS ORDERED: ENOXAPARIN 60 MG/0.6 ML SYR SC SCH (09:00)
[2017-06-05] MEDS: morphINE SR 30 MG TAB PO SCH ×2 (09:27→22:23)
[2017-06-05] MEDS: SPIRONOLACTONE 25 MG TAB PO SCH (09:27)
--- NOTE | 2017-06-05 09:39 | WOCRNPDOC ---
WOCRN Advanced Assessment Note - Skin Integrity Problem, Advanced Assess Right Lateral Calf Abscess Dressing Type: Adaptic Touch (x2), Gauze, Kerlix Dressing Description: Clean/Dry, Intact Exudate Amount: Moderate Exudate Characteristic(s): Serosanguinous Integumentary Issue Intervention: Dressing Changed, Dressing Initialed & Dated Aleena Wound Tissue: Erythema, Painful/Tender Wound Bed Color: Red, Yellow Wound Bed Constitution: Red/[place] - Non Granular Tissue, Subcutaneous Fat Site Measurement - Head-to-Toe Length X Width X Depth (cm): 3x2.5x1 Skin Integrity Problem Comment: Full thickness wound not involving muscle. Flushed with ns and gauze. CPro Collagen applied to wound bed and covered with hydrofera blue transfer and then applied sorbion sachet border to cover both. Wound care will round again Friday. Please try and leave collagen base intact at least until Friday or Friday.
--- NOTE | 2017-06-05 11:03 | GCON ---
[f rep st] CONSULTATION INPATIENT INFECTIOUS DISEASE CONSULTATION REFERRING PHYSICIAN: Truong Fuentes MD REASON FOR REFERRAL: Right calf abscess. HISTORY OF PRESENT ILLNESS: Patient is a 76-year-old male, who had approximately a 1-month history o f a growing mass that was painful on the back of his right calf. It started draining serous fluid ap proximately 1 week ago. He failed Keflex therapy as an outpatient. He presented to the emergency ro om on 06/04/2017 and was referred to General Surgery and underwent an incision and [facility]/05/2017. The patient is currently resting in his hospital bed. He notes remy t he is feeling much better this morning. No new fevers or chills. No rash. No diarrhea. PAST MEDICAL HISTORY: 1. Diastolic heart failure. 2. Cerebrovascular accident. 3. Atrial fibrillation. 4. Coronary artery disease. 5. Tricuspid regurgitation. 6. Prostate cancer. 7. 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 8. Chronic back pain. PAST SURGICAL HISTORY: 1. Status post radical prostatectomy. 2. Status post cardiac ablation. 3. Status post right total hip arthroplasty. ANTIBIOTICS: 1. Ceftriaxone. 2. Vancomycin. ALLERGIES: The patient is allergic to sulfa drugs and amiodarone. SOCIAL HISTORY: Patient lives locally. He is independent. No alcohol, tobacco, or illicit drugs no leora. FAMILY HISTORY: Reviewed, but noncontributory. REVIEW OF SYSTEMS: Other than that detailed above in the History of Present Illness, a comprehensive 10-system review is negative. PHYSICAL EXAMINATION: VITAL SIGNS: Temperature maximum is 37.2. Temperature current is 36.8. Hear t rate is 81, respiratory rate is 20, blood pressure is 93/50. GENERAL: The patient is a well-forme d, well-nourished, elderly male, in no acute distress. He is not toxic in appearance. He is alert a nd oriented x3. He is pleasant in demeanor. HEENT: Normocephalic for age. Atraumatic. No scleral icterus. No oral lesion. No drainage from the nares. Eyes: Lids and conjunctivae are within norm al limits. Pupils are equal and round bilaterally. NECK: Supple without meningismus. LUNGS: Anais r to auscultation bilaterally with good effort. HEART: Regular rate and rhythm. No murmur, rub, or gallop noted. No significant peripheral edema on the left lower extremity. Right lower extremity w ith 1+ edema distal norwood and foot. SKIN: Warm and dry to the touch. No rash or lesion noted apart from the postoperative posterior right calf area. The patient has some mild edema and induration of the surrounding skin tissue in the posterior right calf. However, there is evidence of new wrinkling since surgery. MUSCULOSKELETAL: Apart from the right calf, no other muscle belly tenderness is not ed. No joint enlargement, effusion, or arthritis is seen. NEURO: Cranial nerves 2-12 seem to be in tact. Peripheral sensation is intact in the extremities. LABORATORY DATA: Patient has a CBC dated 06/05/2017, shows a white blood cell count of 4.93, hemoglo bin of 8.6, hematocrit of 26.7, and a platelet count of 122. Serum chemistries on 06/05/2017, show s odium 139, potassium 3.8, chloride 101, bicarbonate 25, BUN of 16, creatinine is 0.8. MICROBIOLOGIC DATA: Patient has blood cultures dated 06/04/2017, which are pending. The patient has a wound swab of his leg on 05/30/2017, which is growing Serratia marcescens. Sensitivity panel for this isolate shows resistance to ampicillin, cefazolin, ampicillin sulbactam, and cefoxitin, otherwis e sensitive to the remaining cephalosporins tested as well as ertapenem, meropenem, fluoroquinolones, and Zosyn. ASSESSMENT: Right calf abscess secondary to Serratia marcescens, status post incision and drainage. The patient looks as if he is improving. At this point, will continue IV ceftriaxone but discontinu e the vancomycin. Discussed this plan with the patient who agrees. We will follow the appearance of his right lower extremity as well as standard laboratory values. /[id number]/MODL
--- NOTE | 2017-06-05 11:28 | PDMN ---
Medical Necessity Medical necessity: est los>2mn for R calf abscess/cellulitis, hip pain w/ concern for seeding; admit for urgent excision of abscess and necrotic tissue w /reversal of INR pre op, IV abx, ID consult; comorbid afib on AC, diastolic heart failure, chronic back pain, hx prostate CA; per order and H&P 06/04/17
[2017-06-05] MEDS ORDERED: VANCOMYCIN HCL/NORMAL SALINE 250 ML IV SCH (13:00)
--- NOTE | 2017-06-05 15:13 | ASMTCMCOM ---
CM Note CM Note Notes: Pt had an I&D of rt calf. He is currently on IV Rocephin Cultures pending. CM will continue to follow. Date Signed: 06/05/2017 03:12 PM Electronically Signed By:Mariel Ortiz LCSW
[2017-06-05] MEDS ORDERED: POLYETHYLENE GLYCOL 3350 17 GM PKT PO PRN (15:30)
[2017-06-05] MEDS ORDERED: MAGNESIUM HYDROXIDE 30 ML UDCUP PO PRN (15:30)
[2017-06-05] MEDS ORDERED: LACTULOSE 20 GM/30 ML UDCUP PO PRN (15:30)
[2017-06-05] MEDS ORDERED: BISACODYL 10 MG SUPP PR PRN (15:30)
[2017-06-05] MEDS ORDERED: WARFARIN SODIUM 5 MG TAB PO SCH (16:00)
[2017-06-05] MEDS: WARFARIN SODIUM 5 MG TAB PO SCH (17:47)
[2017-06-05] MEDS ORDERED: ASPIRIN EC 81 MG TAB PO SCH (21:00)
[2017-06-05] MEDS: ASPIRIN EC 81 MG TAB PO SCH (22:22)
[2017-06-05] MEDS: SENNOSIDES/DOCUSATE SODIUM TAB PO SCH (22:24)
[2017-06-05] MEDS: TEMAZEPAM 15 MG CAP PO PRN (22:32)
[2017-06-06] MEDS: LR 1,000 ML IV SCH ×3 (00:47→22:20)
[2017-06-06] MEDS: HYDROCODONE/APAP 10/325 TAB PO PRN ×2 (02:12→09:26)
[2017-06-06 05:49] LABS: INR 2.19 (0.83-1.16); PROTIME(PATIENT) 24.4 SEC (12.0-15.0)
[2017-06-06] MEDS: FUROSEMIDE 80 MG TAB PO SCH ×2 (08:09→14:44)
[2017-06-06] MEDS: FUROSEMIDE 20 MG TAB PO SCH ×2 (08:10→14:44)
[2017-06-06] MEDS: METOPROLOL TARTRATE 50 MG TAB PO SCH ×2 (09:17→22:18)
[2017-06-06] MEDS: SENNOSIDES/DOCUSATE SODIUM TAB PO SCH ×2 (09:26→22:19)
[2017-06-06] MEDS: SPIRONOLACTONE 25 MG TAB PO SCH (09:26)
--- NOTE | 2017-06-06 09:59 | PCMIDPN ---
Assessment/Plan: 1. Right calf abscess/skin and soft tissue infections secondary to Serratia marcescens: Ceftriaxone for now is fine given that the abscess has been drained and this is a skin and soft tissue infection. NB: Serratia is associated with inducible beta lactamase production over time, but suspect patient will need short course of therapy and this will not be an issue. Also of note, spoke with patient about the fact that he will need a usp facility moving forward, as I do not feel comfortable sending him home given all of his medical issues. In addition, patient will likely need a course of intravenous therapy with ceftriaxone given significant interaction with the quinolones and warfarin. He expressed understanding and is willing to go to a usp facility in [place]. Subjective: Says that right calf is still uncomfortable, but feels better compared with previous. Constipated. Objective: Ceftriaxone 1 g IV daily day 3 T-max 37.2degrees Vital Signs Temp Pulse Resp BP Pulse Ox 36.9 C 77 17 97/72 L 95 06/06/17 08:21 06/06/17 09:17 06/06/17 08:21 06/06/17 09:17 06/06/17 08:21 Microbiology 06/05/17 01:45 Gram Stain - Final Leg - Swab Laboratory Results 06/05/17 11:46 06/05/17 05:00 06/05/17 06/06/17 06/07/17 05:59 05:59 05:59 Intake Total 2933 1999 Output Total 525 2101 Balance 2408 -101 Right calf with 4+ Serratia marcescens sensitive to ceftriaxone Blood cultures negative - Physical Exam General Appearance: other (Elderly male, lying in bed, no apparent distress) EENT: No thrush Respiratory: lungs clear Extremities: other (Right calf bandage removed: Hydrea fair a blue in place. Patient has significant tenderness superiorly, but with no palpable fluctuance. Surrounding cellulitis visible. No evidence of devitalized tissue.) ICD10 Worksheet Patient Problems: Problems Problem Status Onset Abscess of right leg Acute
--- NOTE | 2017-06-06 10:15 | ASMTCMCOM ---
CM Note CM Note Notes: Patient will need SNF placement per ID physician. Spoke with patient who wishes to go to [facility] in [place] as he has been there before and this is his preference. Referral made. Awaiting response.CM to follow. Date Signed: 06/06/2017 10:14 AM Electronically Signed By:Irene Palma RN
[2017-06-06] MEDS: morphINE SR 30 MG TAB PO SCH ×2 (10:49→22:19)
[2017-06-06] MEDS ORDERED: HYDROCODONE/APAP 10/325 TAB PO PRN (12:58)
[2017-06-06] MEDS: HYDROCODONE/APAP 10/325 TAB PO SCH ×2 (15:49→22:13)
[2017-06-06] MEDS: WARFARIN SODIUM 5 MG TAB PO SCH (15:49)
--- NOTE | 2017-06-06 18:35 | HOSPPROG ---
Hospitalist Progress Note Assessment/Plan: DIAGNOSES: -R calve abscess, Serratia marcescens in culture; s/p surgical debridement/ excision of skin and subQ tissues 06/04 with going open wound -hypotension: I do not think there is sepsis -acute anemia likely due to dilution but will recheck blood counts -R hip pain is resolved since yest: xrays with no concerning findings (history total hip replacement) -chronic berylliosis, Interstitial Lung seen on current CXR; currently stable -no pulmonary HTN a year ago on R heart cath here -Heart Disease stable/compensated at present: -AFib, intermittent on chronic coumadin, currently therapeutic -Mild CAD noted on angiography one year ago, -Diastolic CHF, Tricuspid Regurg -chronic non-radicular back pain, severe is at his baseline at this time; this is fairly debilitated for him and will slow his recovery to full ambulation; uses intermittent oxycodone for this PLANS: -continue current antibiotics pending cultures -continue wound care -recheck hemoglobin tomorrow -continue anticoagulation with history of AFib at this time -physical occupational therapy as his leg and back pain will limit his mobility SUBJECTIVE: Still quite a bit of pain in his leg wound he tells me unchanged from yesterday He has not noticed any bleeding No chills or sweats or other fever symptoms No shortness of breath chest discomfort He has some chronic back pain which is fairly severe and says he is having his usual non radicular back pain here today OBJECTIVE Vitals reviewed: Remains hypotensive, no tachycardia or fever 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, 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: Exam: alert oriented skin warm dry color ok; capillary refill is slightly diminished but fingers and toes are warm resps not labored lungs clear BSs heart regular abd soft nondistended nontender, bowel sounds present I did not review his wound today which was still in dressings not opened by wound care by the time I saw him Laboratory data: Hemoglobin on recheck was at 10, so I believe the initial drop to 8 was spurious , there is likely some decreased due to dilution from IV fluids Objective: Vital Signs Temp Pulse Resp BP Pulse Ox 36.8 C 86 17 112/58 L 98 06/06/17 16:00 06/06/17 16:00 06/06/17 16:00 06/06/17 16:00 06/06/17 16:00 Microbiology 06/05/17 01:45 Gram Stain - Final Leg - Swab Laboratory Results 06/05/17 11:46 06/06/17 12:03 06/05/17 06/06/17 06/07/17 06:59 06:59 06:59 Intake Total 2933 2000 400 Output Total 525 2101 8728 Balance 9626 -328 -6146 PT 24.4 SEC (12.0-15.0) H 06/06/17 04:43 INR 2.19 (0.83-1.16) H 06/06/17 04:43 ICD10 Worksheet Patient Problems: Problems Problem Status Onset Abscess of right leg Acute
[2017-06-06] MEDS: ASPIRIN EC 81 MG TAB PO SCH (22:13)
[2017-06-06] MEDS: TEMAZEPAM 15 MG CAP PO PRN (22:19)
--- NOTE | 2017-06-06 23:17 | PDCONSULT ---
Ordnance Keeper Note: Marline is resting comfortably/the swelling of his right calf has diminished significantly wound dressing is intact Wound care consult appreciated Plan: local wound care/dressing change Friday continue Abx per YARA Carrington MD, FACS
[2017-06-07 04:52] LABS: PLATELET COUNT 158 10^3/uL (150-400)
[2017-06-07 05:04] LABS: INR 2.23 (0.83-1.16); PROTIME(PATIENT) 24.7 SEC (12.0-15.0)
[2017-06-07] MEDS: HYDROCODONE/APAP 10/325 TAB PO SCH ×4 (08:02→20:40)
[2017-06-07] MEDS: FUROSEMIDE 80 MG TAB PO SCH ×2 (08:03→14:13)
[2017-06-07] MEDS: FUROSEMIDE 20 MG TAB PO SCH ×2 (08:03→14:14)
--- NOTE | 2017-06-07 09:06 | PCMIDPN ---
Assessment/Plan: 1. Right calf abscess/skin and soft tissue infection secondary to Serratia marcescens: The patient's clinical exam today is different, with worsening erythema and significant tenderness to palpation along the site of the former abscess. He is practically jumping off the bed secondary to pain. Given new fevers and worsening erythema, will obtain MRI of the right lower extremity. As outlined in my note yesterday, given the fact that Serratia can have an inducible beta lactamase and failure is well documented with 3rd generation cephalosporins, will discontinue ceftriaxone and start ertapenem 1 g IV daily. 06/07/17 09:03 Subjective: Continues to have right lower extremity discomfort. Feels that it is worse today. Objective: Ceftriaxone 1 g IV daily day 4 T-max 38.2degrees Vital Signs Temp Pulse Resp BP Pulse Ox 38.2 C 95 16 115/67 94 06/07/17 07:55 06/07/17 07:55 06/07/17 07:55 06/07/17 07:55 06/07/17 07:55 Microbiology 06/05/17 01:45 Gram Stain - Final Leg - Swab Laboratory Results 06/07/17 04:44 06/07/17 04:44 06/06/17 06/07/17 06/08/17 05:59 05:59 05:59 Intake Total 1999 2600 Output Total 2101 2381 200 Balance -101 219 -200 Right calf abscess with 4+ Serratia marcescens - Physical Exam General Appearance: thin EENT: pharynx normal, No thrush Respiratory: lungs clear Cardiac/Chest: irregularly irregular Extremities: other (Right lower extremity dressing taken down. Significant tenderness to palpation around the abscess drainage site. Significant ongoing erythema around this area as well. Patient is yelling and practically jumping off the bed when I press the tissue around his wound. It is not particularly fluctuant, although exam is difficult given significant pain. No bullae. No evidence of necrosis.) ICD10 Worksheet Patient Problems: Problems Problem Status Onset Abscess of right leg Acute
[2017-06-07] MEDS: morphINE SR 30 MG TAB PO SCH ×2 (09:20→20:40)
[2017-06-07] MEDS: SENNOSIDES/DOCUSATE SODIUM TAB PO SCH ×2 (09:20→20:40)
[2017-06-07] MEDS: SPIRONOLACTONE 25 MG TAB PO SCH (09:20)
[2017-06-07] MEDS: METOPROLOL TARTRATE 50 MG TAB PO SCH ×2 (09:28→20:39)
[2017-06-07] MEDS ORDERED: GADOBUTROL 10 ML VIAL IVP ONE (10:31)
[2017-06-07] MEDS: ERTAPENEM 1 GM VIAL IVP SCH (11:57)
--- NOTE | 2017-06-07 14:14 | HOSPPROG ---
Hospitalist Progress Note Assessment/Plan: 76-year-old man with a complicated past medical history presents with pain in his right calf. He was found to have a right calf abscess and underwent I and D by Dr. Carrington on June 05. # right calf abscess/skin and soft tissue infection secondary to Serratia marcescens. Slightly more tender today. MRI reviewed with Dr. Jason * Antibiotics changed to Invanz * Continue to monitor on new antibiotic * Wound care # tachycardia earlier today with associated fever, do not believe this is sepsis given his history of AFib and normalization of his blood pressure. # anemia. Stable. Likely dilutional. * Follow CBC # chronic berylliosis, interstitial lung disease with no pulm htn. # AFIB, on anticoagulation with Coumadin and rate controlled # nonobstructive coronary artery disease # compensated diastolic heart failure # chronic pain due to back pain on chronic narcotic therapy Subjective: Patient new to me and chart reviewed. Complains of pain around his right calf wound he states it is about the same as yesterday although he is quite tender. No chest pain, no shortness of breath out of the ordinary. Objective: Vital Signs Temp Pulse Resp BP Pulse Ox 37.2 C 87 16 110/67 97 06/07/17 12:00 06/07/17 12:00 06/07/17 12:00 06/07/17 12:00 06/07/17 12:00 Microbiology 06/05/17 01:45 Gram Stain - Final Leg - Swab Laboratory Results 06/07/17 04:44 06/07/17 04:44 06/06/17 06/07/17 06/08/17 05:59 05:59 05:59 Intake Total 1999 2600 Output Total 2101 2381 1300 Balance -101 219 -1300 PT 24.7 SEC (12.0-15.0) H 06/07/17 04:44 INR 2.23 (0.83-1.16) H 06/07/17 04:44 - Physical Exam Constitutional: no apparent distress, chronically ill appearing Eyes: PERRL, EOMI Ears, Nose, Mouth, Throat: moist mucous membranes Cardiovascular: systolic murmur, irregularly irregular Respiratory: no respiratory distress, reduced air movement Gastrointestinal: normoactive bowel sounds, No tenderness Genitourinary: no bladder fullness Skin: warm, erythema (Right lower extremity), other (Bilateral venous stasis changes) Musculoskeletal: generalized weakness Neurologic: AAOx3, No facial droop Psychiatric: interacting appropriately ICD10 Worksheet Patient Problems: Problems Problem Status Onset Abscess of right leg Acute
[2017-06-07] MEDS: WARFARIN SODIUM 5 MG TAB PO SCH (15:54)
--- NOTE | 2017-06-07 17:57 | ASMTCMCOM ---
CM Note CM Note Notes: [facility] willing to accept. Spoke with RN. Anticipate dc when medically stable. Dc plan-SNF Date Signed: 06/07/2017 05:57 PM Electronically Signed By:Jhoana Mon RN
[2017-06-07] MEDS: ASPIRIN EC 81 MG TAB PO SCH (20:39)
[2017-06-07] MEDS: TEMAZEPAM 15 MG CAP PO PRN (21:06)
[2017-06-08 04:47] LABS: PLATELET COUNT 191 10^3/uL (150-400)
[2017-06-08 05:01] LABS: INR 2.3 (0.83-1.16); PROTIME(PATIENT) 25.3 SEC (12.0-15.0)
[2017-06-08] MEDS: HYDROCODONE/APAP 10/325 TAB PO SCH ×4 (06:40→20:39)
[2017-06-08] MEDS: FUROSEMIDE 80 MG TAB PO SCH ×2 (08:28→12:17)
[2017-06-08] MEDS: FUROSEMIDE 20 MG TAB PO SCH ×2 (08:28→12:17)
[2017-06-08] MEDS: SPIRONOLACTONE 25 MG TAB PO SCH (08:28)
[2017-06-08] MEDS: SENNOSIDES/DOCUSATE SODIUM TAB PO SCH ×2 (08:28→20:39)
[2017-06-08] MEDS: METOPROLOL TARTRATE 50 MG TAB PO SCH ×2 (08:28→20:39)
[2017-06-08] MEDS: morphINE SR 30 MG TAB PO SCH ×2 (08:28→20:39)
[2017-06-08] MEDS: ERTAPENEM 1 GM VIAL IVP SCH (08:29)
--- NOTE | 2017-06-08 09:20 | HOSPPROG ---
Hospitalist Progress Note Assessment/Plan: 76-year-old man with a complicated past medical history presents with pain in his right calf. He was found to have a right calf abscess and underwent I and D by Dr. Carrington on June 05. Continues to have tenderness on the calf around the wound. # right calf abscess/skin and soft tissue infection secondary to Serratia marcescens. Still quite tender. minimal edema * Antibiotics changed to Invanz yesterday, will continue to monitor symptoms on new abx * MRI reviewed with Dr. Jason. * Wound care # tachycardia no further episodes of tachycardia, no fevers overnight # anemia. Stable. Likely dilutional. * Follow CBC # chronic berylliosis, interstitial lung disease with no pulm htn. # AFIB, on anticoagulation with Coumadin and rate controlled # nonobstructive coronary artery disease # compensated diastolic heart failure # chronic pain due to back pain on chronic narcotic therapy Subjective: pt doing well today, still has pain in leg. No cp, sob, abdo issues. No BM yesterday, but plans on taking miralax today. Objective: Vital Signs Temp Pulse Resp BP Pulse Ox 37.2 C 76 16 118/69 96 06/08/17 07:36 06/08/17 08:28 06/08/17 07:36 06/08/17 08:28 06/08/17 07:36 Microbiology 06/05/17 01:45 Gram Stain - Final Leg - Swab Laboratory Results 06/08/17 04:23 06/08/17 04:23 06/07/17 06/08/17 06/09/17 05:59 05:59 05:59 Intake Total 2600 800 Output Total 2381 2400 250 Balance 219 -1600 -250 PT 25.3 SEC (12.0-15.0) H 06/08/17 04:23 INR 2.30 (0.83-1.16) H 06/08/17 04:23 - Physical Exam Constitutional: chronically ill appearing, uncomfortable Eyes: PERRL, anicteric sclera, EOMI Ears, Nose, Mouth, Throat: moist mucous membranes Cardiovascular: no murmur, rub, or gallop, irregularly irregular Respiratory: no respiratory distress, no rales or rhonchi, clear to auscultation Gastrointestinal: normoactive bowel sounds, No tenderness Genitourinary: no bladder fullness Skin: other (chronic venous stasis changes in LE. wound on right calf.) Musculoskeletal: generalized weakness Neurologic: AAOx3 Psychiatric: interacting appropriately, not anxious, not encephalopathic ICD10 Worksheet Patient Problems: Problems Problem Status Onset Abscess of right leg Acute
--- NOTE | 2017-06-08 12:56 | PCMIDPN ---
Assessment/Plan: 1. Right calf abscess/skin and soft tissue infection secondary to Serratia marcescens: Better today. Would continue ertapenem as is. Suspect he will need a course of IV therapy, but this can be done at the group home facility. Subjective: Much better today. MRI reviewed with Dr. Suazo. Myositis without evidence of necrotizing fasciitis or undrained abscess. Less painful today. Objective: Ertapenem 1 g IV daily day 2 T-max 37.3degrees Vital Signs Temp Pulse Resp BP Pulse Ox 37.2 C 76 16 118/69 96 06/08/17 07:36 06/08/17 08:28 06/08/17 07:36 06/08/17 08:28 06/08/17 07:36 Microbiology 06/05/17 01:45 Gram Stain - Final Leg - Swab Laboratory Results 06/08/17 04:23 06/08/17 04:23 06/07/17 06/08/17 06/09/17 05:59 05:59 05:59 Intake Total 2600 800 Output Total 2381 2400 450 Balance 219 -1600 -450 Wound with Serratia marcescens - Physical Exam General Appearance: no apparent distress Extremities: other (Right lower extremity skin starting to pucker, consistent with decreased edema. Erythema has also improved, and the patient has much less tenderness to palpation. Abscess site covered with Hydrea fair a blue.) ICD10 Worksheet Patient Problems: Problems Problem Status Onset Abscess of right leg Acute
[2017-06-08] MEDS: WARFARIN SODIUM 5 MG TAB PO SCH (15:53)
--- NOTE | 2017-06-08 16:38 | WOCRNPDOC ---
WOCRN Advanced Assessment Note - Skin Integrity Problem, Advanced Assess Right Lateral Calf Abscess Dressing Type: Allevyn Life, Hydrofera Blue (transfer) Dressing Description: Intact, Shadowed Exudate Amount: Minimal Exudate Color: Reddish/Yellow Exudate Characteristic(s): Serosanguinous Integumentary Issue Intervention: Dressing Changed, Dressing Initialed & Dated Aleena Wound Tissue: Erythema, Painful/Tender Wound Bed Color: Red, Yellow Wound Bed Constitution: Red/Dickey - Non Granular Tissue, Subcutaneous Fat Wound Edges: Well Defined Site Measurement - Head-to-Toe Length X Width X Depth (cm): 4.2x3x1 Skin Integrity Problem Comment: Based on patient's description of previous dressing changes, asked RN Cynthia to premedicate for pain. Patient given both PO and IV pain medication. Dressing taken down. Wound cleaned gently with NS and gauze. CPro collagen applied to wound bed and covered with hydrofera blue transfer cut-to-fit and covered with sorbion sachet border. Patient tolerated procedure, but with severe pain. Wound care will round again on 06/11.
[2017-06-08] MEDS: ASPIRIN EC 81 MG TAB PO SCH (20:39)
[2017-06-08] MEDS: TEMAZEPAM 15 MG CAP PO PRN (22:21)
[2017-06-09 05:30] LABS: INR 2.39 (0.83-1.16); PROTIME(PATIENT) 26.1 SEC (12.0-15.0)
[2017-06-09] MEDS: HYDROCODONE/APAP 10/325 TAB PO SCH ×4 (06:46→21:12)
[2017-06-09] MEDS: FUROSEMIDE 20 MG TAB PO SCH ×2 (08:10→12:17)
[2017-06-09] MEDS: FUROSEMIDE 80 MG TAB PO SCH ×2 (08:10→12:17)
[2017-06-09] MEDS: ERTAPENEM 1 GM VIAL IVP SCH (08:15)
[2017-06-09] MEDS: morphINE SR 30 MG TAB PO SCH ×2 (09:27→21:12)
[2017-06-09] MEDS: SPIRONOLACTONE 25 MG TAB PO SCH (09:27)
--- NOTE | 2017-06-09 09:42 | HOSPPROG ---
Hospitalist Progress Note Assessment/Plan: 76-year-old man with a complicated past medical history presents with pain in his right calf. He was found to have a right calf abscess and underwent I and D by Dr. Carrington on June 05. Continues to have tenderness on the calf around the wound but everyday its a little bit better. # right calf abscess/skin and soft tissue infection secondary to Serratia marcescens. Still quite tender. minimal edema. 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 I will try to wean off the iv meds today and adjust his oral narcs short term for his leg pain. * Antibiotics changed to Invanz 06/07 will continue to monitor symptoms on new abx * MRI reviewed with Dr. Jason. * Wound care * LOT per ID. DC to SNF soon. # tachycardia no further episodes of tachycardia, no fevers overnight # anemia. Stable. Likely dilutional. * Follow CBC # chronic berylliosis, interstitial lung disease with no pulm htn. # AFIB, on anticoagulation with Coumadin and rate controlled # nonobstructive coronary artery disease # compensated diastolic heart failure # chronic pain due to back pain on chronic narcotic therapy including MS contin 30mg BID and norco up to 4-6 per day. He has been on this for years. I suspect that his pain for his leg will be extremely difficult to treat because of his low pain threshold and likely narcotic tolerance. Disposition: [facility] ongoing re[facility], wound care and IV Abx. LOT per ID ?7 more days given ongoing pain. DC today or tomorrow after discuss with ID. Subjective: still with pain on calf. a little better than yesterday but still quite tender. Objective: Vital Signs Temp Pulse Resp BP Pulse Ox 36.9 C 72 18 112/60 96 06/09/17 07:43 06/09/17 07:43 06/09/17 07:43 06/09/17 07:43 06/09/17 07:43 Microbiology 06/05/17 01:45 Gram Stain - Final Leg - Swab Laboratory Results 06/08/17 04:23 06/08/17 04:23 06/08/17 06/09/17 06/10/17 05:59 05:59 05:59 Intake Total 800 400 Output Total 2400 450 Balance -1600 -50 PT 26.1 SEC (12.0-15.0) H 06/09/17 04:35 INR 2.39 (0.83-1.16) H 06/09/17 04:35 - Physical Exam Constitutional: chronically ill appearing, uncomfortable Eyes: PERRL Ears, Nose, Mouth, Throat: hard of hearing (mild) Cardiovascular: regular rate and rhythym Respiratory: no respiratory distress, reduced air movement (bases) Gastrointestinal: normoactive bowel sounds, soft, non-tender abdomen Genitourinary: no bladder fullness Skin: other (venous stasis changes, decreased edema sound covered. no sig erythema other than venous stasis) Musculoskeletal: generalized weakness Neurologic: AAOx3 Psychiatric: interacting appropriately, not anxious ICD10 Worksheet Patient Problems: Problems Problem Status Onset Abscess of right leg Acute
[2017-06-09] MEDS: METOPROLOL TARTRATE 50 MG TAB PO SCH ×2 (12:17→21:13)
[2017-06-09] MEDS: SENNOSIDES/DOCUSATE SODIUM TAB PO SCH ×2 (12:18→21:14)
--- NOTE | 2017-06-09 12:39 | PCMIDPN ---
Assessment/Plan: Assessment: Right lower extremity cellulitis secondary to calf abscess due to Serratia marcescens. Managing on ertapenem monotherapy. Patient is still significantly in pain secondary to the inflammatory soft tissue infection however the appearance of the right lower extremity looks much improved. No fevers or chills. Plan: 1. Continue IV ertapenem and elevation of the right lower extremity for the next 24 hours in hospital. Attempt to get better pain control. 2. Follow clinical appearance. 06/09/17 18:19 06/09/17 18:20 Subjective: Patient is resting in his hospital bed. States he is doing okay but the slightest touch of his right lower extremity causes significant pain. He is able to ambulate however. No fevers or chills. No rash. Objective: Ertapenem # 3 Vital Signs Temp Pulse Resp BP Pulse Ox 37.0 C 72 18 122/69 H 96 06/09/17 11:32 06/09/17 12:17 06/09/17 11:32 06/09/17 12:17 06/09/17 07:43 Microbiology 06/05/17 01:45 Gram Stain - Final Leg - Swab Laboratory Results 06/08/17 04:23 06/08/17 04:23 06/08/17 06/09/17 06/10/17 05:59 05:59 05:59 Intake Total 800 400 Output Total 2400 450 Balance -1600 -50 - Physical Exam General Appearance: WD/WN, alert, no apparent distress, thin, non-toxic Respiratory: lungs clear, normal breath sounds, No respiratory distress Cardiac/Chest: regular rate, rhythm, No tachycardia Extremities: erythema, No non-tender, No normal inspection (Right lower extremity from proximal calf distal is swollen and dusky erythematous. He is quite tender to minimal palpation.) Skin: normal color, warm/dry, No rash Neuro/Psych: alert, normal mood/affect, oriented x 3 ICD10 Worksheet Patient Problems: Problems Problem Status Onset Abscess of right leg Acute
[2017-06-09] MEDS: WARFARIN SODIUM 5 MG TAB PO SCH (15:45)
[2017-06-09] MEDS: HYDROCODONE/APAP 10/325 TAB PO PRN (18:03)
[2017-06-09] MEDS: ASPIRIN EC 81 MG TAB PO SCH (21:12)
[2017-06-09] MEDS: TEMAZEPAM 15 MG CAP PO PRN (21:12)
[2017-06-10] MEDS: HYDROCODONE/APAP 10/325 TAB PO PRN ×2 (05:07→14:05)
[2017-06-10 06:41] LABS: INR 2.52 (0.83-1.16); PROTIME(PATIENT) 27.1 SEC (12.0-15.0)
[2017-06-10] MEDS: FUROSEMIDE 80 MG TAB PO SCH ×2 (07:42→14:05)
[2017-06-10] MEDS: HYDROCODONE/APAP 10/325 TAB PO SCH ×4 (07:43→20:17)
[2017-06-10] MEDS: FUROSEMIDE 20 MG TAB PO SCH ×2 (07:43→14:05)
[2017-06-10] MEDS: ERTAPENEM 1 GM VIAL IVP SCH (10:53)
[2017-06-10] MEDS: morphINE SR 30 MG TAB PO SCH ×2 (10:55→20:18)
[2017-06-10] MEDS: SENNOSIDES/DOCUSATE SODIUM TAB PO SCH ×2 (10:56→20:42)
[2017-06-10] MEDS: SPIRONOLACTONE 25 MG TAB PO SCH (10:56)
[2017-06-10] MEDS: METOPROLOL TARTRATE 50 MG TAB PO SCH ×3 (11:23→20:19)
--- NOTE | 2017-06-10 14:30 | PCMIDPN ---
Assessment/Plan: Assessment/Plan: 1. RLE cellulitis with abscess: s/p I & D; - Currenlty on invanz and doing well - marked improvment in degree of swelling and acute cellulitis - mri form 06/07/17 reviewed. no new abscess. just myositis -pt with ongoing excruciating pain wiht respect to wound despite otherwise marked clinical improvment in cellulitis and swelling -repeat MRI to [facility] evaluate - wound examined with wound care team and hospitalist - care coordinated with RN, wound care, hospitalist team meds invanz 1g daily Subjective: afebrile. overall feels better. denies pain of RLE except when touching wound. then he has excruciating pain. i came back and saw him twice in order exam wound wiht wound care team and hospitalist to coordinate his care. he denies sob , abd pain or diarrhea. swelling has markedly improved. no acute cellulitis as such. mild brawny discoloration near wound perimeter. Objective: Vital Signs Temp Pulse Resp BP Pulse Ox 36.4 C 84 18 103/56 L 94 06/10/17 12:22 06/10/17 12:22 06/10/17 12:22 06/10/17 12:22 06/10/17 12:22 Microbiology 06/05/17 01:45 Gram Stain - Final Leg - Swab Laboratory Results 06/08/17 04:23 06/08/17 04:23 06/09/17 06/10/17 06/11/17 05:59 05:59 05:59 Intake Total 400 500 Output Total 450 750 Balance -50 -250 - Physical Exam General Appearance: alert, no apparent distress Respiratory: lungs clear Cardiac/Chest: regular rate, rhythm Extremities: swelling (marked impromement in RLE swelling) Abdomen: normal bowel sounds, non-tender, soft, No distended Skin: other (RLE lateral wound: clean base. mild necrotic tissue noted which is easy removed with q-tip. mild slough. wound base is very tender to even the mildest of touch. wound perimeter is also very tender. he nearly jumps every time area is palpated. ) - Time Spent With Patient Time Spent with Patient: greater than 35 minutes Time Spent with Patient: Greater than 35 minutes spent on this patients care, greater than 50% of time spent counseling, educating, and coordinating care regarding the above mentioned plan. ICD10 Worksheet Patient Problems: Problems Problem Status Onset Abscess of right leg Acute
--- NOTE | 2017-06-10 14:45 | WOCRNPDOC ---
WOCRN Advanced Assessment Note - Skin Integrity Problem, Advanced Assess Right Lateral Calf Abscess Dressing Type: Hydrofera Blue (Transfer), Other (Sorbion sachet border) Other Dressing Type: Sorbion Sachet Dressing Description: Saturated Exudate Amount: Moderate Exudate Color: Red Exudate Characteristic(s): Bloody Integumentary Issue Intervention: Dressing Changed, Silver Gel Applied (to necrosis in medial aspect of wound) Gaby Wound Tissue: Erythema, Swollen, Scaly, Venous Dermatitis, Dry Gaby Wound Swelling: Mild Wound Bed Color: Black, Red, Yellow Wound Bed Constitution: Granulation Tissue (70%), Mixed Loose & Adhered Slough/ Eschar (30%) Wound Edges: Punched Out, Well Defined Site Odor: None Skin Integrity Problem Comment: Consult request by Dr. Busch and Dr. Ortega because patient c/o excessive pain. Premedicated w/ IV and PO pain meds just to remove dressing, which was well-adhered even after soaking w/ NS. Loose eschar noted in medial aspect of wound bed, w/ trace adhered slough surrounding; majority of wound bed is granulating tissue. While gaby-wound skin is indicative of venous stasis, punctate appearance of this wound is inconsistent w/ a venous wound. Possible mixed venous and arterial insufficiency, though I was able to palpate a DP pulse. No appreciable warmth in gaby-wound tissues, and erythema and swelling are receding. Changed dressing order to a non-adherent contact layer and foam secured w/ rolled gauze to mitigate pain during dressing changes. Recommend topical Lidocaine 2% for next dressing change.
--- NOTE | 2017-06-10 14:52 | HOSPPROG ---
Hospitalist Progress Note Assessment/Plan: 76-year-old man with a complicated past medical history presents with pain in his right calf. He was found to have a right calf abscess and underwent I and D by Dr. Carrington on June 05. Continues to have tenderness on the calf around the wound which is quite severe, despite improvement in edema. pt discussed with ID # right calf abscess/skin and soft tissue infection secondary to Serratia marcescens. Still quite tender. minimal edema. 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 His pain is way out of proportion to his exam. * Antibiotics changed to Invanz * repeat MRI after discussion with ID, if myositis is worse, that may account for pain * If MRI findings are improved, maybe pain tolerance is low. # tachycardia, resolved. # anemia. Stable. Likely dilutional. * Follow CBC # chronic berylliosis, interstitial lung disease with no pulm htn. # AFIB, on anticoagulation with Coumadin and rate controlled # nonobstructive coronary artery disease # compensated diastolic heart failure # chronic pain due to back pain on chronic narcotic therapy including MS contin 30mg BID and norco up to 4-6 per day. He has been on this for years. I suspect that his pain for his leg will be extremely difficult to treat because of his low pain threshold and likely narcotic tolerance. Disposition: pt will go to [facility] [place] for ongoing rehab, wound care and IV Abx. LOT per ID ?7 more days given ongoing pain, depending on MRI. DC when pain improved or reassured with wound healing. Subjective: pt having a lot of pain with bandage changes. Objective: Vital Signs Temp Pulse Resp BP Pulse Ox 36.4 C 84 18 103/56 L 94 06/10/17 12:22 06/10/17 12:22 06/10/17 12:22 06/10/17 12:22 06/10/17 12:22 Microbiology 06/05/17 01:45 Gram Stain - Final Leg - Swab Laboratory Results 06/08/17 04:23 06/08/17 04:23 06/09/17 06/10/17 06/11/17 05:59 05:59 05:59 Intake Total 400 500 Output Total 450 750 Balance -50 -250 PT 27.1 SEC (12.0-15.0) H 06/10/17 05:24 INR 2.52 (0.83-1.16) H 06/10/17 05:24 - Physical Exam Constitutional: no apparent distress Eyes: PERRL Ears, Nose, Mouth, Throat: moist mucous membranes Cardiovascular: regular rate and rhythym Respiratory: no respiratory distress, reduced air movement Gastrointestinal: normoactive bowel sounds Genitourinary: no bladder fullness Skin: warm, other (wound with granulation on right lower leg, necrotic spot on wound looks superficial per wound care nurse.) ICD10 Worksheet Patient Problems: Problems Problem Status Onset Abscess of right leg Acute
--- NOTE | 2017-06-10 15:26 | ASMTCMCOM ---
CM Note CM Note Notes: Chart reviewed for discharge planning. Patient continues to have pain and poor wound healing. When medically cleared he will transport to [facility] in [place]. CM to follow. Date Signed: 06/10/2017 03:25 PM Electronically Signed By:Irene Palma RN
[2017-06-10] MEDS: WARFARIN SODIUM 5 MG TAB PO SCH (15:34)
[2017-06-10] MEDS ORDERED: GADOBUTROL 10 ML VIAL IVP ONE (17:55)
[2017-06-10] MEDS: ASPIRIN EC 81 MG TAB PO SCH (20:18)
[2017-06-10] MEDS: TEMAZEPAM 15 MG CAP PO PRN (20:18)
[2017-06-11] MEDS: HYDROCODONE/APAP 10/325 TAB PO PRN ×2 (05:07→22:50)
[2017-06-11] MEDS: HYDROCODONE/APAP 10/325 TAB PO SCH ×4 (08:30→20:29)
[2017-06-11] MEDS: FUROSEMIDE 80 MG TAB PO SCH ×2 (08:32→12:38)
[2017-06-11] MEDS: METOPROLOL TARTRATE 50 MG TAB PO SCH ×2 (08:32→20:32)
[2017-06-11] MEDS: FUROSEMIDE 20 MG TAB PO SCH ×2 (08:32→12:38)
[2017-06-11] MEDS: morphINE SR 30 MG TAB PO SCH ×2 (08:33→20:29)
[2017-06-11] MEDS: SPIRONOLACTONE 25 MG TAB PO SCH (08:33)
[2017-06-11] MEDS: ERTAPENEM 1 GM VIAL IVP SCH (08:34)
[2017-06-11] MEDS: SENNOSIDES/DOCUSATE SODIUM TAB PO SCH ×2 (08:34→20:33)
--- NOTE | 2017-06-11 16:40 | HOSPPROG ---
Hospitalist Progress Note Assessment/Plan: * Right calf abscess s/p I&D - Serratia marcescens -f/u MRI unremarkable -IV invanz -d/w Dr. Murray - clarify antibiotic plan - ? DC SNF with IV abx * ILD/Berylliosis * Afib -chronic warfarin (h/o embolic stroke) * Continuous narcotic dependency - home MS Contin dose continued * h/o prostate cancer * Chronic CHF due to DD - well compensated Subjective: Right leg pain better Objective: Vital Signs Temp Pulse Resp BP Pulse Ox 36.7 C 86 18 115/67 93 06/11/17 14:49 06/11/17 14:49 06/11/17 14:49 06/11/17 14:49 06/11/17 14:49 Microbiology 06/05/17 01:45 Gram Stain - Final Leg - Swab Laboratory Results 06/08/17 04:23 06/08/17 04:23 06/10/17 06/11/17 06/12/17 05:59 05:59 05:59 Intake Total 500 Output Total 750 Balance -250 PT 27.1 SEC (12.0-15.0) H 06/10/17 05:24 INR 2.52 (0.83-1.16) H 06/10/17 05:24 MRI leg reviewed - no persistent infection Case d/w Dr. Murray - clarify ID plan for discharge - Physical Exam Constitutional: no apparent distress, appears nourished, not in pain Cardiovascular: regular rate and rhythym, no murmur, rub, or gallop Respiratory: no respiratory distress, no rales or rhonchi, clear to auscultation Gastrointestinal: normoactive bowel sounds, soft, non-tender abdomen, no palpable masses Skin: no rashes or abrasions, no fluctuance, no induration Musculoskeletal: other (leg wound wrapped, minimal surrounding erythema or tenderness) Neurologic: AAOx3, sensation intact bilaterally Psychiatric: interacting appropriately, not anxious, not encephalopathic, thought process linear ICD10 Worksheet Patient Problems: Problems Problem Status Onset Abscess of right leg Acute
[2017-06-11] MEDS: WARFARIN SODIUM 5 MG TAB PO SCH (16:56)
--- NOTE | 2017-06-11 17:22 | WOCRNPDOC ---
WOCRN Advanced Assessment Note - Skin Integrity Problem, Advanced Assess Right Lateral Calf Abscess Dressing Type: Adaptic Touch, Non-Bordered Foam (X2 Pieces) Dressing Description: Intact, Shadowed Exudate Amount: Minimal Exudate Characteristic(s): Sanguinous Integumentary Issue Intervention: Dressing Changed, Dressing Initialed & Dated Gaby Wound Tissue: Erythema, Xerotic, Painful/Tender (extremely) Gaby Wound Swelling: Mild Wound Bed Color: Black, Red, Yellow Wound Bed Constitution: Granulation Tissue (80%), Loose Slough (10%), Unstable Eschar (10% in middle of wound) Wound Edges: Not Attached, Epibole, Well Defined Skin Integrity Problem Comment: Patient extremely tender and exquisitely painful to wound care, including dressing removal and placement. Flushed area with ns and then soaked with Vashe for [address] Murray visualized wound as well. After discussion Hydrofera blue was continued as a dressing with Q3D change. HFB ready cut to fit wound bed after applying skin prep and mastisol gaby wound it was secured with a steri strip and covered with Allevyn life. Wound care will round again next week.
--- NOTE | 2017-06-11 17:36 | PCMIDPN ---
Assessment/Plan: Assessment/Plan: * Right lower extremity abscess due to Serratia status post incision and drainage: Signs of infection largely resolved. Still with exquisite central tenderness. Other consideration would be is there an element of pyoderma gangrenosum contributing to clinical findings and pain. Plan to review pathology findings further. Resolving erythema and desquamation of skin surrounding abscess however more supportive of infectious cause. Plan 1 additional day of antibiotic therapy which will represent 7 days post drainage. Reviewed clinical findings with patient and wound care team this p.m.. Time spent, 25 min, of which greater than half was spent in coordination of care related to right lower extremity abscess and plan of care 06/11/17 17:32 06/11/17 17:35 06/11/17 17:38 06/11/17 17:39 Subjective: Patient with exquisite pain upon palpation of wound bed. Objective: Vital Signs Temp Pulse Resp BP Pulse Ox 36.7 C 86 18 115/67 93 06/11/17 14:49 06/11/17 14:49 06/11/17 14:49 06/11/17 14:49 06/11/17 14:49 Microbiology 06/05/17 01:45 Gram Stain - Final Leg - Swab Laboratory Results 06/08/17 04:23 06/08/17 04:23 06/10/17 06/11/17 06/12/17 05:59 05:59 05:59 Intake Total 500 Output Total 750 Balance -250 Ertapenem # 5, antibiotics # 6 - Physical Exam General Appearance: alert, no apparent distress Extremities: inflammation (Right lower extremity wound with significant granulation tissue with few small area of central necrosis; wound margins are heaped up; surrounding cellulitis resolved with some desquamation of skin) ICD10 Worksheet Patient Problems: Problems Problem Status Onset Abscess of right leg Acute
[2017-06-11] MEDS: ASPIRIN EC 81 MG TAB PO SCH (20:29)
[2017-06-11] MEDS: TEMAZEPAM 15 MG CAP PO PRN (20:29)
[2017-06-12 00:05] VITALS: RESP 16
[2017-06-12 07:18] VITALS: BP 111/70; PULSE 72; TEMP 97.8; O2SAT 96
[2017-06-12] MEDS: HYDROCODONE/APAP 10/325 TAB PO SCH ×3 (08:03→15:49)
[2017-06-12] MEDS: FUROSEMIDE 20 MG TAB PO SCH ×2 (08:04→12:30)
[2017-06-12] MEDS: ERTAPENEM 1 GM VIAL IVP SCH (08:41)
[2017-06-12] MEDS: SPIRONOLACTONE 25 MG TAB PO SCH (08:42)
[2017-06-12] MEDS: FUROSEMIDE 80 MG TAB PO SCH ×2 (08:42→12:29)
[2017-06-12] MEDS: morphINE SR 30 MG TAB PO SCH (08:42)
[2017-06-12] MEDS: SENNOSIDES/DOCUSATE SODIUM TAB PO SCH (08:42)
[2017-06-12] MEDS: METOPROLOL TARTRATE 50 MG TAB PO SCH (09:26)
--- NOTE | 2017-06-12 10:34 | PCMIDPN ---
Assessment/Plan: Assessment: Right lower extremity cellulitis secondary to calf abscess due to Serratia marcescens. Completing course of ertapenem today. Patient's pain has significantly reduced in the right lower extremity. Plan to discontinue treatment and discharge. Plan: 1. Discontinue antibiotics. Patient has completed a full course. 2. Discharged home. Subjective: Patient is resting comfortably in his hospital bed. He notes that his right lower extremity hurts more at sometimes than others. No fevers or chills. Objective: Ertapenem # 6 Vital Signs Temp Pulse Resp BP Pulse Ox 36.6 C 72 16 111/70 96 06/12/17 07:17 06/12/17 07:17 06/12/17 07:17 06/12/17 07:17 06/12/17 07:17 Microbiology 06/05/17 01:45 Gram Stain - Final Leg - Swab Laboratory Results 06/08/17 04:23 06/08/17 04:23 - Physical Exam General Appearance: WD/WN, alert, no apparent distress, thin, non-toxic Respiratory: lungs clear, normal breath sounds Cardiac/Chest: regular rate, rhythm, No tachycardia Extremities: normal inspection, No non-tender (Right lower extremity improved with regards to tenderness on palpation.), No calf tenderness Skin: normal color, warm/dry, No rash Neuro/Psych: alert, normal mood/affect, oriented x 3 ICD10 Worksheet Patient Problems: Problems Problem Status Onset Abscess of right leg Acute
--- NOTE | 2017-06-12 10:54 | PDIAF ---
- Diagnosis Diagnosis: infected leg wound s/p I&D Code Status: Do Not Resuscitate - Medication Management Discharge Medications: Medications to Continue on Transfer Aspirin EC [Aspirin EC 81 mg (*)] 81 mg PO HS 06/04/17 [Last Taken 06/03/17] Furosemide [Lasix 20 MG (*)] 20 mg PO BID@0730,13 06/04/17 [Last Taken 06/03/17] Furosemide [Lasix 80 MG (*)] 80 mg PO BID@0730,13 06/04/17 [Last Taken 06/03/17] Herbals/Supplements -Info Only 1 ea PO DAILY 06/04/17 [Last Taken 06/03/17] Metoprolol Tartrate [Lopressor 50 mg (*)] 50 mg PO BID 06/04/17 [Last Taken 02/10] Spironolactone [Aldactone 25 MG (*)] 25 mg PO DAILY 06/04/17 [Last Taken ] Temazepam 30 mg PO HS PRN 06/04/17 [Last Taken 06/03/17] Warfarin Sodium [Coumadin 5MG (*)] 5 mg PO DAILY16 06/04/17 [Last Taken 06/03/17 ] morphINE SR [MS Contin/Oramorph SR 30 mg (*)] 30 mg PO BID 06/04/17 [Last Taken 06/03/17] HYDROcodone/APAP 10/325 [Vevay 10/325 (*)] 1 - 2 tab PO Q4 PRN #30 06/12/17 [ Last Taken 06/03/17] Discharge Medications: Refer to the Discharge Home Medication list for PRN reason. - Orders Services needed: Physical Therapy, Occupational Therapy Diet Recommendation: no restrictions on diet Wound Care Instructions: Dressing change orders for RLE: to be done by neon molder q3 days and PRN. 1. Clean with ns and gauze. 2. Apply skin prep gaby wound. 3. Cut piece of hydrofera blue ready to fit wound bed. Then secure with a steri strip. - Follow Up Care Current Providers and Referrals: Chas Gilman MD [Primary Care Provider] - As per Instructions [facility] [Clinic] - follow up in 2 weeks
[2017-06-12] MEDS: WARFARIN SODIUM 5 MG TAB PO SCH (15:49)
--- NOTE | 2017-06-12 23:54 | GDS ---
[f rep st] DISCHARGE SUMMARY DISCHARGE DIAGNOSES: 1. Right calf abscess, status post incision and drainage. 2. Serratia marcescens source of infection. 3. Interstitial lung disease and berylliosis. 4. Atrial fibrillation. 5. History of embolic stroke. 6. Continuous narcotic dependency for chronic back pain. 7. History of prostate cancer. 8. Chronic congestive heart failure due to diastolic dysfunction. HISTORY: The patient is a 76-year-old male, who presented with a right calf abscess, and he underwen t incision and drainage. Culture grew Serratia marcescens. MRI was negative for deeper infection. He completed a 7-day course of IV Invanz here in the hospital and needs no further antibiotics upon d ischarge. He does, however, need ongoing wound care and is discharging to a retirement at [facility] [place]. DISCHARGE MEDICATIONS: Please see computerized record for full detailed list. New medications: Non e. ADDITIONAL DISCHARGE INSTRUCTIONS: 1. Dressing change to the right lower extremity every 3 days and as needed. Please refer to interag ency form for details. 2. Follow up with [facility] in 2 weeks. Greater than 30 minutes' time was spent arranging this discharge. Patient was seen and examined by heena bianchi on the day of discharge. /[id number]/[id number]
== END 2017-06-12 16:08 | DRG 571 ==
LOC: OBSVTOIN 14:34 → F1N 17:05 → F3N 06-05 15:43 → F3E 06-09 16:50
PROVIDERS: ADMIT Internal Medicine; ATTEND Internal Medicine
PROC: 30233K1 Transfusion of Nonautologous Frozen Plasma into Peripheral Vein, Percutaneous Approach (ICD-10-PCS; 2017-06-04)
PROC: 0JBN0ZZ Excision of Right Lower Leg Subcutaneous Tissue and Fascia, Open Approach (ICD-10-PCS; principal; 2017-06-05 01:00)
DX: L02.415 Cutaneous abscess of right lower limb (principal); B96.89 Other specified bacterial agents as the cause of diseases classified elsewhere; I96 Gangrene, not elsewhere classified; J84.9 Interstitial pulmonary disease, unspecified; J63.2 Berylliosis; G89.29 Other chronic pain; F11.20 Opioid dependence, uncomplicated; I50.32 Chronic diastolic (congestive) heart failure; I48.91 Unspecified atrial fibrillation; G47.30 Sleep apnea, unspecified; I95.9 Hypotension, unspecified; D64.9 Anemia, unspecified; M25.551 Pain in right hip; I07.1 Rheumatic tricuspid insufficiency; R00.0 Tachycardia, unspecified; Z79.01 Long term (current) use of anticoagulants; Z96.641 Presence of right artificial hip joint; Z85.46 Personal history of malignant neoplasm of prostate; Z86.73 Personal history of transient ischemic attack (TIA), and cerebral infarction without residual deficits
CPT/HCPCS: 96365; 97116-GP; 97161-GP; 97166-GO; 97530-GP; 97535-GO; A9585; G8978-GP-CK; G8979-GP-CI; G8987-GO-CJ; G8988-GO-CI; J0696; J1170; J1335; J2704; J3010; J3370; P9016; P9017

== ENCOUNTER 2017-11-13 10:27 | Inpatient (IN) | payer OTHER ==
[2017-11-13] MEDS ORDERED: ACETAMINOPHEN 325 MG TAB PO PRN (14:14)
[2017-11-13] MEDS ORDERED: ONDANSETRON DISINTEGRATING 4 MG TAB PO PRN (14:14)
[2017-11-13] MEDS ORDERED: ONDANSETRON 4 MG/2 ML VIAL IVP PRN (14:14)
[2017-11-13] MEDS ORDERED: SENNOSIDES/DOCUSATE SODIUM TAB PO PRN (14:17)
[2017-11-13] MEDS ORDERED: LUBIPROSTONE 24 MCG CAP PO PRN (14:17)
[2017-11-13] MEDS ORDERED: FUROSEMIDE 100 MG/10 ML VIAL IVP ONE (14:18)
[2017-11-13] MEDS: HYDROCODONE/APAP 5/325 TAB PO PRN ×2 (14:59→22:23)
--- NOTE | 2017-11-13 15:05 | GHP ---
[f rep st] HISTORY AND PHYSICAL DATE OF ADMISSION: 11/13/2017 CHIEF COMPLAINT: Worsening right leg cellulitis. HISTORY OF PRESENT ILLNESS: This is a 77-year-old man who has been followed by Dr. Barnard in the [facility], who was admitted for suspected cellulitis. His problems with this leg began in when he underwent debridement for an abscess. It has never really fully healed since then. Cultur e at that time showed Serratia, which was resistant to ampicillin, cefazolin, and cefoxitin. He has been seeing Dr. Barnard approximately once a week. He saw her today and noted some significantly incre ased pain, as well as exudate from this leg. He has had so much drainage from the leg he had to walk around his house in a trash bag to contain it. He has not had any fevers at home. I spoke with Dr. Barnard about this, and she reports that the leg is definitely more tender than it previously was, and the skin is much more macerated than previous. She sent him into the hospital for admission for inc reased wound care, as well as intravenous antibiotics. She notes that she did debride it today. She took wound cultures from 4 days ago, which show Proteus, as well as Klebsiella. PAST MEDICAL/SURGICAL HISTORY: 1. Diastolic CHF. 2. History of a CVA in June of 2016. 3. Atrial fibrillation, on chronic anticoagulation. 4. Mild coronary artery disease. 5. Severe tricuspid regurgitation. 6. History of an atrial arrhythmia, status post ablation. 7. Prostate cancer, status post prostatectomy. 8. Beryllium lung disease. 9. Chronic back pain. 10. Scrotal hernia. 11. NICA in 10/2016. MEDICATIONS: Please see medication reconciliation. ALLERGIES: Sulfa, amiodarone, amlodipine. FAMILY HISTORY: Reviewed and noncontributory. SOCIAL HISTORY: Does not drink or smoke. [place] REVIEW OF SYSTEMS: A 10-point review of systems is conducted and is negative, except per HPI. PHYSICAL EXAM: VITAL SIGNS: Blood pressure 117/65, heart rate 80, respiration rate 18, saturating 9 6% on room air. Temperature is 36.8. GENERAL: The patient is a pleasant man who is resting comfort ably, in no acute distress. HEENT: Shows him to be normocephalic, atraumatic. CARDIOVASCULAR: Exa m shows him to be irregularly irregular. There is a systolic murmur present. He has 1+ bilateral lo wer extremity edema. PULMONARY: Lungs clear to auscultation bilaterally. He is in no respiratory d istress. ABDOMEN: Soft, nontender, nondistended. SKIN: No rash. : Exam shows no Argueta. NEUROL OGIC: Exam shows him to be alert and oriented x3. He is moving all extremities. PSYCHIATRIC: Exam shows normal mood and affect. EXTREMITIES: Exam shows his right lower extremity to be wrapped in g auze. I took down the gauze. He has a lateral, as well as a medial area of significant skin breakdo wn. This looks like it has just recently been debrided. There is some surrounding erythema. It is slightly warm to palpation. It is exquisitely tender. DATA: 1. Discussed this with Dr. Barnard. Will admit to med/surg. 2. I reviewed his chart, as well as his lower extremity MRI and his cardiac catheterization in 2016. IMPRESSION AND PLAN: 1. Right lower extremity nonhealing wound: Likely component of infection associated with this. He had a wound culture from 4 days ago growing Proteus, as well as Klebsiella. He had a biopsy at that time, which was negative for vasculitis or malignancy. This was debrided today. He will get aggress ermias wound care. I will start him empirically on Rocephin to cover pathogens as found in the culture, as well as reasonable staphylococcus and streptococcus coverage. I have placed an Infectious Diseas e consult. I will give him a dose of intravenous Lasix today given his significant edema. He will g et aggressive wound care while he is in the hospital, likely with Dakin's. 2. Atrial fibrillation: He is on Coumadin. I will check an INR and continue his Coumadin. Will al so continue his metoprolol. 3. Chronic pain, on continuous narcotics: We will continue his sustained release morphine, provide him with other options to control his pain. 4. History of a cerebrovascular accident in June of 2016: He is on aspirin. He is not on a sta tin. 5. Mild coronary artery disease on catheterization in June of 2016. 6. History of beryllium lung disease. 7. Scrotal hernia: Will be fixed at some point by Dr. Barnard. There is no urgency at this point. 8. Code status: He would like to be do not resuscitate. I discussed exactly what this means with marianne becerril, and he understands. /[id number]/MODL
[2017-11-13 15:19] LABS: PLATELET COUNT 254 10^3/uL (150-400)
--- NOTE | 2017-11-13 15:22 | PDMN ---
Medical Necessity Medical necessity: Pt meets IP criteria per MD; los >2 mn for eval/tx of R LE nonhealing wound with significant edema, pain & drainage; failed outpatient therapy s/p debridement; admit for aggressive wound care, IV abx, ID/Wound Care consults & IV Lasix; hx CHF, AFIB on AC, CVA, CAD, beryllium lung disease; per H &P & order 11/13/17
[2017-11-13 15:37] LABS: INR 1.33 (0.83-1.16); PROTIME(PATIENT) 16.7 SEC (12.0-15.0)
[2017-11-13] MEDS ORDERED: FUROSEMIDE 40 MG/4 ML VIAL IVP ONE (16:00)
[2017-11-13] MEDS: WARFARIN SODIUM 5 MG TAB PO SCH (16:03)
[2017-11-13] MEDS: HYDROmorphONE/DILAUDID 1 MG/ML INJ IVP PRN ×2 (17:41→20:17)
[2017-11-13] MEDS: ASPIRIN EC 81 MG TAB PO SCH (20:18)
[2017-11-13] MEDS: METOPROLOL TARTRATE 50 MG TAB PO SCH (20:18)
[2017-11-13] MEDS: SODIUM HYPOCHLORITE (DAKINS 1/4 STR) 473 ML BTL TP SCH (20:18)
[2017-11-13] MEDS: morphINE SR 30 MG TAB PO SCH (20:18)
[2017-11-13] MEDS: NIACIN 500 MG TAB PO SCH (20:42)
[2017-11-13] MEDS: TEMAZEPAM 15 MG CAP PO PRN (22:23)
[2017-11-14 05:13] LABS: INR 1.47 (0.83-1.16)
[2017-11-14] MEDS: HYDROCODONE/APAP 5/325 TAB PO PRN ×5 (05:17→22:19)
[2017-11-14] MEDS: WARFARIN SODIUM 2.5 MG TAB PO SCH (09:29)
[2017-11-14] MEDS: morphINE SR 30 MG TAB PO SCH ×2 (09:29→22:20)
[2017-11-14] MEDS: SODIUM HYPOCHLORITE (DAKINS 1/4 STR) 473 ML BTL TP SCH ×2 (09:30→23:03)
[2017-11-14] MEDS: POTASSIUM CL 20 MEQ TAB PO SCH (09:30)
[2017-11-14] MEDS: METOPROLOL TARTRATE 50 MG TAB PO SCH ×2 (09:36→22:20)
--- NOTE | 2017-11-14 10:54 | WOCRNPDOC ---
WOCRN Advanced Assessment Note - Skin Integrity Problem, Advanced Assess Right Calf Dressing Type: Open to Air Exudate Amount: Excessive Exudate Characteristic(s): Serous Aleena Wound Tissue: Erythema, Macerated Wound Bed Constitution: Red/[place] - Non Granular Tissue Site Measurement - Head-to-Toe Length X Width X Depth (cm): 4x15x0.1 Pressure Injury Stage: Stage 2, Knapsack Sprayer Related Pressure Injury Pressure Injury Present on Admit: Yes Skin Integrity Problem Comment: Horizontal wound that mimics the placement of the patient's compression sock elastic. This wound weeps constantly and is the source of most of the drainage on the right leg. Right Lower Lateral Leg Venous Stasis Ulcer Dressing Type: Open to Air Exudate Amount: None Aleena Wound Tissue: Erythema, Hemosiderin Staining, Venous Dermatitis, Shiny, Taught, Painful/Tender Aleena Wound Swelling: Moderate Wound Bed Constitution: Granulation Tissue (50%), Mixed Loose & Adhered Slough/ Eschar (50%) Wound Edges: Not Attached, Irregular Site Measurement - Head-to-Toe Length X Width X Depth (cm): 6.3x5.5x0.3 Skin Integrity Problem Comment: Large chronic wound with a dried wound bed that has a significant amount of necrosis. Will initiate autolytic debridement with iodofoam that patient has used in outpatient setting as well. Right Lower Medial Leg Venous Stasis Ulcer Dressing Type: Open to Air Exudate Amount: Minimal Exudate Characteristic(s): Serosanguinous Aleena Wound Tissue: Erythema, Swollen, Lipodermatosclerosis, Hemosiderin Staining , Venous Dermatitis, Shiny, Taught, Painful/Tender Wound Bed Color: Brown, Yellow Wound Bed Constitution: Granulation Tissue (10%), Mixed Loose & Adhered Slough/ Eschar (90%) Site Measurement - Head-to-Toe Length X Width X Depth (cm): 2.7x2.0x0.3 Right Posterior Lower Distal Leg Venous Stasis Ulcer Dressing Type: Open to Air Exudate Amount: Scant Exudate Characteristic(s): Serosanguinous Wound Bed Constitution: Mixed Loose & Adhered Slough/Eschar (100%) Site Measurement - Head-to-Toe Length X Width X Depth (cm): 1x1x0.2 Right Anterior Lower Leg Dressing Type: Open to Air Exudate Amount: Minimal Exudate Characteristic(s): Serous Integumentary Issue Intervention: Mechanical Debridement Wound Bed Constitution: Adhered Slough (50%) Wound Edges: Attached Site Measurement - Head-to-Toe Length X Width X Depth (cm): 1x1x0.2 Skin Integrity Problem Comment: New wound that was mechanically debrided with gauze from 100% slough to 50% slough.
[2017-11-14] MEDS: CHOLECALCIFEROL VIT D3 2,000 UNITS TAB/CAP PO SCH (12:03)
--- NOTE | 2017-11-14 12:53 | ASMTCMCOM ---
CM Note CM Note Notes: Pt admitted for a non healing leg wound, he sees Dr Barnard once a week at the wound clinic. 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 DC needs unclear, no therapies ordered, CM w/f. DC Plan: TBD Date Signed: 11/14/2017 12:52 PM Electronically Signed By:Jhoana Mon RN
--- NOTE | 2017-11-14 13:10 | HOSPPROG ---
Hospitalist Progress Note Assessment/Plan: 77y male with leg wounds. First encounter, chart reviewed. D/W Dr Kwon. #RLE wounds -multiple wounds -dressing reviewed with wound care -cont supportive care -? why not healing -arterial study ordered #RLE cellulitis -abx per ID -D/W Dr Kwon #Scrotal hernia -future repair with Akil -significant #AFib -cont home meds -chronic anticoagulation -subtherapeutic INR -D/W pharmacy -extra coumadin today #Diastolic CHF -consult cards -hypotensive -edema #Hypotensive -1/2 lopressor today -follow #Chronic pain -cont narcotics #Hx CVA -PT #Dispo -unclear -needs further hospital care Subjective: Feels ok. No specific issues. Some pain. Objective: Vital Signs Temp Pulse Resp BP Pulse Ox 36.8 C 73 16 98/57 L 96 11/14/17 12:00 11/14/17 12:00 11/14/17 12:00 11/14/17 12:00 11/14/17 12:00 Laboratory Results 11/13/17 15:00 11/13/17 15:00 11/13/17 11/14/17 11/15/17 05:59 05:59 05:59 Intake Total 250 Output Total 1576 Balance -1326 PT 18.0 SEC (12.0-15.0) H 11/14/17 04:25 INR 1.47 (0.83-1.16) H 11/14/17 04:25 - Physical Exam Constitutional: appears nourished, chronically ill appearing, uncomfortable Eyes: PERRL, anicteric sclera, EOMI Ears, Nose, Mouth, Throat: moist mucous membranes, hearing normal, ears appear normal Cardiovascular: edema, No JVD, No tachycardia Respiratory: no respiratory distress, no rales or rhonchi, clear to auscultation Gastrointestinal: normoactive bowel sounds, No tenderness, No ascites Skin: warm, erythema, induration Musculoskeletal: normal joint ROM, no joint effusions, generalized weakness Neurologic: AAOx3 Psychiatric: interacting appropriately, not anxious, not encephalopathic, thought process linear ICD10 Worksheet Patient Problems: Problems Problem Status Onset Abscess of right leg Acute
--- NOTE | 2017-11-14 15:30 | SOAPPROG ---
SOAP Progress Note Assessment/Plan: Assessment: Marline is well known to me. Had increasing edema and erythema and a lot of drainage from his wound Admitted [place] [facility] [place] [facility] [place] (wounds wrapped - I did not take down since I saw him yesterday) Radha Hirsch K 9 HANDLER/ DEPUTY analysis consultant for our practice over the weekend if there are questions Plan: 11/14/17 15:28 Objective: Vital Signs Temp Pulse Resp BP Pulse Ox 36.8 C 73 16 98/57 L 96 11/14/17 12:00 11/14/17 12:00 11/14/17 12:00 11/14/17 12:00 11/14/17 12:00 Laboratory Results 11/13/17 15:00 11/13/17 15:00 11/13/17 11/14/17 11/15/17 05:59 05:59 05:59 Intake Total 250 Output Total 1576 Balance -1326 PT 18.0 SEC (12.0-15.0) H 11/14/17 04:25 INR 1.47 (0.83-1.16) H 11/14/17 04:25 ICD10 Worksheet Patient Problems: Problems Problem Status Onset Abscess of right leg Acute
[2017-11-14] MEDS ORDERED: WARFARIN SODIUM 5 MG TAB PO ONE (16:00)
--- NOTE | 2017-11-14 16:02 | GCON ---
[f rep st] CONSULTATION The patient was admitted to the hospital with increasingly poorly healing leg wound in the right leg. We have been asked to evaluate the patient. He is a gentleman with diastolic congestive heart failure and who often has swelling in the lower ext remities. He got to the point with his lower extremity swelling that in May, he broke out and de veloped a wound. Things got worse. Both legs were swollen. He would have spontaneous drainage from his lower extremities and then this wound in the right lower extremity below the knee developed to t he point where he started going to the [facility] Center on October 01. [facility] since that time on a weekly basis. He was at the Wound Center yesterday and they told him to come into the hospital. He is now admitted to the hospital. He can walk several blocks without getting short of breath and t hat has continued and has not changed. He has sleep on 2 thin pillows and never wakes up with acute shortness of breath or having to sit up to breathe. He has not had any weight gain recently. His an kles have been getting more swollen, but his weight is not increasing. He does not have fever, chills, or cough. He has not had lightheadedness or dizziness. He has not h ad any symptoms of a stroke at this time. His history includes atrial fibrillation. He originally presented with atrial flutter. He thinks it is 10 years ago, had an ablation, then subsequently developed atrial fibrillation. He is on full anticoagulation for his atrial fibrillation. He is known to the electrophysiology service. He has a history of pulmonary disease with lung disease. He has had longstanding venous i nsufficiency. He has had coronary angiography in the past and has not needed to have any interventio n of any kind. He has cardiac risk factors positive for a history of a stroke in 06/2016, that improved and he has n o residual. He has chronic permanent atrial fibrillation. He has no history of hypertension, hyperl ipidemia, diabetes mellitus, hyperuricemia. No known myocardial infarctions. He has mild coronary d isease with stenosis in the 10% range on an angiography in 06/2016. He has no family history of mariana ature coronary disease. ALLERGIES: Amlodipine, amiodarone, sulfa. MEDICATIONS: Attached in the reconciliation form. REVIEW OF SYSTEMS: 10-point review of systems negative except as noted above and the other comments that are read in the chart. His history includes prostate cancer. FAMILY HISTORY: None of premature coronary disease. No history of unexplained sudden at a you ng age. SOCIAL HISTORY: He was born in the [place] in [facility]. He grew up in [place] near [place], [place] He has been in [place] since October of 1962. He moved to [place] in 1959 after 3 years, did no t like it, and wanted to come out to try something new, and he loved [place]. He is retired from [employer] now. 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 He lives alone. He has 1 ch ild and 1 stepchild. His 1 child is with him here. He does not smoke. He does not drink significan t amounts of alcohol. PAST MEDICAL HISTORY: Echo in 05/2016, showed an ejection fraction of 58, normal; slightly below nor mal right ventricular EF, mild MR, severe TR. Coronary angiography, he had no lesions greater than 15% range. LABORATORY VALUES: White count of 6.27, hematocrit 36, platelets of 254. His sodium is 143, potassi um 4.3, chloride 102, CO2 of 29, BUN 26, creatinine 0.9, glucose 111. His INR when he came in was 1.33, and then it was 1.47. Patient has been seen by wound care and their notes are attached. ASSESSMENT AND PLAN: 1. Heart failure with preserved ejection fraction. 2. [place] Heart Association class 2 chronic diastolic heart failure. 3. Decreased right ventricle systolic function. 4. Severe tricuspid regurgitation. 5. Peripheral edema. He does not have left-sided heart failure. He does not have heart failure with reduced ejection fraction. He is not having complications from his chronic atrial fibrillation. He does not have anything that goes along with rate control issues recently. He has slowly over time since May, had more and more distal swelling in his lower extremities and it has gotten to the point that he would end up in wound clinic after it started weeping. At this point in time, he is somewhat hypotensive with a blood pressure today right now that is 98/57 . He has been on metoprolol long-term and I agree with the concept of cutting back the metoprolol an d giving him doses of Lasix, and I think I might try 40 mg tomorrow and then maybe 20 mg a day after that. We have to watch how his blood pressure and renal function responds to the Lasix as we are giving it to him. Our group will follow with him. I think he is doing fine on the lower dose of the metoprolol. I thi nk the main solution here is going to be mechanical drainage and posture, and if need be, a hospital bed may help him to maintain his elevation of his lower extremities. I have been with him for over 3 0 minutes in the room, and we set him up so that his ankles were above his heart and his head was chelsea te flat, and that is not causing him any distress or shortness of breath or anything else. A thing t hat is difficult for him mechanically is that the wound is on the backside of his leg so that when he is lying flat on his back, he is putting pressure on the wound, and so Wound Care can try to figure out what is the best way to get around this and still elevate his lower extremities. He did have his EFRAIN done and that came out with the right EFRAIN of 1.36, the left EFRAIN of 1.20, and that is indicative of no significant abnormality arterial marvin going into the lower extremities. Currently, he is stable. He is comfortable. His daughter is with him and I have answered all their questions. I have seen him in the past and he follows up with Dr. Robles and Sheyla Love at [facility] at th is point in time for management of his care. His other problems include: 1. CVA 06/2016. This has improved. 2. Prostate cancer. 3. History of rheumatic disease as a young man. 4. Chronic venous insufficiency. 5. Severe tricuspid regurgitation. 6. Status post atrial flutter ablation as mentioned. 7. Permanent atrial fibrillation. Thank you very much for asking us to see him and I have discussed this case with the hospitalist crystal silverio. /[id number]/MODL
--- NOTE | 2017-11-14 17:53 | GCON ---
[f rep st] CONSULTATION INFECTIOUS DISEASE CONSULTATION DATE OF CONSULTATION: 11/14/2017 Physician requesting consultation is Otis Calles. REASON FOR CONSULTATION: Nonhealing wound right calf complicated by cellulitis. HPI: A 77-year-old male with a past medical history of diastolic heart failure, CVA, and atrial fibr illation on chronic anticoagulation, whose problems date back to May 2017, where he developed a s pontaneous posterior right calf abscess with cultures positive for Serratia. Patient also had some u nderlying myositis. The patient underwent debridement while hospitalized and completed a course of a ntibiotics. Since that time, the wound has been unable to be healed. Lack of wound healing has been evaluated in a variety of ways including 2 skin biopsies, 1 on June 05 and 1 on November 06, that showed no malignancy, no amyloid, no vasculitis, and no clear evidence of pyoderma. The [facility], with increasing drainage, pain, and redness was noticed on his right leg. The patient was transferred to the hospital for ongoing management. Most recent cult ures were obtained 11/06/2017, which showed Proteus and Klebsiella. Upon admission to the hospital, patient was started on ceftriaxone 1 g IV daily. It is difficult for the patient to say, the traject ory of his right leg after 1 night of therapy. He denies any systemic symptoms prior to admission to the hospital. REVIEW OF SYSTEMS: A complete 10-point review of systems was performed and is negative except as men tioned in the HPI. The patient has significant scrotal swelling, which is attributable to a severe h ernia. PAST MEDICAL AND SURGICAL HISTORY: 1. Diastolic CHF, followed in the [facility]. The patient last had a transesophag eal echo 07/12/2016, with an ejection fraction of 55%. No shunt. Severe tricuspid regurgitation and mild mitral regurgitation. Aortic valve was normal. 2. The patient is in chronic atrial fibrillation with failed prior ablations on chronic Coumadin the [facility]. 3. Coronary artery disease. 4. Prostate cancer, status post prostatectomy. 5. Beryllium lung disease. 6. Scrotal hernia. 7. Total hip arthroplasty 10/2016. MEDICATIONS: Tylenol, [place], aspirin 81 mg daily, Rocephin 1 g IV daily, vitamin D, Dilaudid as need ed, lubiprostone 24 mcg twice daily as needed, metoprolol 50 mg twice daily, MS Contin 30 mg twice da doris, niacin 500 mg q.h.s., Zofran as needed, potassium as needed, temazepam 15-30 as needed, Coumadin . ALLERGIES: Sulfa causes hives. He is also allergic to amiodarone and amlodipine. FAMILY HISTORY: Positive for stroke. SOCIAL HISTORY: No exercise. One child. 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 Never had tobacco. He is . PHYSICAL EXAM: VITAL SIGNS: Blood pressure 98/57, heart rate 73, respiratory rate 16, saturation 96 % on room air, temperature 36.8. He has been afebrile throughout his hospital course. GENERAL: Caitlin shaffer is a chronically ill-appearing male, sitting up in bed, conversational. No distress. HEENT: No c ranial abnormalities. Teeth are fair. Moist mucous membranes. CARDIOVASCULAR: Irregularly irregul ar with a faint systolic murmur. PULMONARY: Clear to auscultation bilaterally. No wheezes. No res piratory distress. He is breathing easy. ABDOMEN: Soft, nontender. EXTREMITIES: The patient has bilateral lower extremity edema, right greater than left with multiple wounds. The right posterior w ound 4 x 15. Right medial 2.7 x 2 x 0.3, right lateral 6.3 x 5.5 x 0.3. A significant amount of esc grecia in the base of the wound. Erythema present on the dorsum of the foot. The lines were drawn to m onitor patient chronically. He also has some pinkness in the stocking distribution of both legs bila terally, right slightly worse than left. His pulses were not palpable bilaterally and he had slower capillary refill. No hair present on his lower legs. SKIN: No rashes other than what was described above. PSYCHIATRIC: He is cooperative, alert and oriented x4. NEURO: Moving all 4 extremities eq ually. LABORATORY: White count 6.2, hematocrit 36, platelets of 254, 66% neutrophils, 16% lymphocytes. INR 1.4. Creatinine 0.9, AST 36, ALT 36 also, alkaline phosphatase 91, total protein 6.8, albumin 3.4. IMAGING: Outside imaging was reviewed by me. The patient had an EFRAIN on 07/21/2017 that was normal. He had a CTA with runoff 09/17/2017, that was also normal, and a bilateral lower extremity venous re flux study on 09/02/2017, that was also normal. Most recent wound culture 11/06/2017, showed Proteus, which was linares susceptible except resistant to a mpicillin and Klebsiella, which showed resistance to ampicillin and Augmentin, otherwise susceptible. No blood cultures were obtained. No other imaging. ASSESSMENT AND PLAN: This is a 77-year-old male with a persistent right posterior calf wound as well as multiple other small wounds, initially precipitated by a spontaneous abscess which occurred in [facility] of 2017. Persistent wound is not entirely clear, but contributing factors certainly could be s ignificant diastolic heart failure leading to chronic lower extremity edema. Vein function was not d etermined to have any significant reflux, but venous insufficiency certainly could also be an ongoing contributing factor. Notably, arterial insufficiency has been excluded. In addition, patient has h ad skin biopsies that have made a primary skin condition less likely. 1. Agree with continued IV ceftriaxone to treat right lower extremity cellulitis. 2. Could consider repeat MRI of the right lower extremity to completely exclude deeper infection as a cause of persistent wound. 3. Recommend Cardiology consult to maximize cardiac function. 4. Obtain a urinalysis to rule out significant proteinuria. Thank you for this consultation. Time was 70 minutes was greater than 50% time of the spent with review of outside records, coordinati on of care with Dr. Barnard and Tsering Randolph, and education of patient regarding potential workup of pe rsistent wound on his right lower extremity. /[id number]/MODL
[2017-11-14] MEDS: TEMAZEPAM 15 MG CAP PO PRN (22:19)
[2017-11-14] MEDS: ASPIRIN EC 81 MG TAB PO SCH (22:21)
[2017-11-14] MEDS: NIACIN 500 MG TAB PO SCH (22:21)
[2017-11-15] MEDS: HYDROCODONE/APAP 5/325 TAB PO PRN ×2 (06:20→09:47)
[2017-11-15] MEDS: SODIUM HYPOCHLORITE (DAKINS 1/4 STR) 473 ML BTL TP SCH ×2 (08:46→22:02)
[2017-11-15] MEDS: POTASSIUM CL 20 MEQ TAB PO SCH (08:46)
[2017-11-15] MEDS: METOPROLOL TARTRATE 25 MG TAB PO SCH ×2 (08:46→21:58)
[2017-11-15] MEDS: morphINE SR 30 MG TAB PO SCH ×2 (08:46→21:58)
[2017-11-15] MEDS ORDERED: FUROSEMIDE 20 MG/2 ML VIAL IVP SCH ×2 (09:00→15:00)
--- NOTE | 2017-11-15 09:30 | SOAPPROG ---
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 Last echo 06/11 showed LVEF 58%, low normal RVEF, mild-moderate MR, severe TR, and moderately enlarged ascending thoracic aorta 4.0cm. L/R cardiac cath 07/12 showed mild CAD. RHC: RA 8, PA 30/9 (8), PCWP 10 and CO/CI 4.3/2.5 L/min. We last saw him in [facility] in 05/11. He reports he has had worsening leg edema for last five months. PAK at one block. Denies CP, palpitations, fevers, chills or new TIA sx. His weight is up 7lbs from six months ago. PLAN: 1)lasix 60mg IV bid 2)aldactone 25mg PO BID 3)decrease Metoprolol tartrate to 25mg PO BID. 4)rest of meds without changes. 5)labs in AM (CBC, CMP and BNP level). 6)repeat transthoracic echo Friday or Friday after some IV diuresis. 7)consider repeat L/R cardiac cath this hospitalization and discuss of TV repair 11/15/17 09:24 Subjective: has swollen legs and PAK at one block. Denies CP, palpitations or syncope. Denies fevers or chills. He would be willing to discuss TV repair if thought clinically needed. Objective: Vital Signs Temp Pulse Resp BP Pulse Ox 36.5 C 70 14 106/67 90 L 11/15/17 07:11 11/15/17 08:46 11/15/17 07:11 11/15/17 08:46 11/15/17 07:11 Laboratory Results 11/13/17 15:00 11/13/17 15:00 11/14/17 11/15/17 11/16/17 05:59 05:59 05:59 Intake Total 250 400 Output Total 1576 300 Balance -1326 100 PT 18.0 SEC (12.0-15.0) H 11/14/17 04:25 INR 1.47 (0.83-1.16) H 11/14/17 04:25 Physical Exam - Physical Exam General Appearance: alert, cachetic, thin EENT: normal ENT inspection Neck: full range of motion Respiratory: lungs clear Cardiac/Chest: gallop, JVD, systolic murmur, irregularly irregular Peripheral Pulses: 2+: carotid (R), carotid (L), femoral (R), femoral (L), dorsalis-pedis (R), dorsalis-pedis (L) Abdomen: non-tender, hepatomegaly, splenomegaly, No rebound Male Genitalia: deferred Rectal: deferred Skin: warm/dry Extremities: pedal edema Neuro/Psych: alert ICD10 Worksheet Patient Problems: Problems Problem Status Onset Abscess of right leg Acute
[2017-11-15] MEDS ORDERED: HYDROCODONE/APAP 10/325 TAB PO PRN (09:53)
[2017-11-15] MEDS: SPIRONOLACTONE 25 MG TAB PO SCH ×2 (09:57→21:59)
[2017-11-15] MEDS ORDERED: FUROSEMIDE 100 MG/10 ML VIAL IVP SCH (10:00)
[2017-11-15] MEDS ORDERED: FUROSEMIDE 40 MG/4 ML VIAL IVP ONE (10:00)
--- NOTE | 2017-11-15 10:13 | HOSPPROG ---
Hospitalist Progress Note Assessment/Plan: 77y male with leg wounds. #RLE wounds -multiple wounds -cont supportive care -arterial study normal -cont elevation and diuretics #RLE cellulitis -cont CTX -per ID #Scrotal hernia -future repair with Akil -significant #AFib -lopressor decreased -chronic anticoagulation -subtherapeutic INR -extra coumadin -check INR in am #Diastolic CHF -appreciate cards, D/W Dr Robles -hypotensive -edema -adjusted diuretics #Hypotensive -meds changed -follow, stable #Chronic pain -cont narcotics #Hx CVA -PT #Dispo -unclear -needs further hospital care Subjective: Feeling well today. Up at edge of bed. No pain. Objective: Vital Signs Temp Pulse Resp BP Pulse Ox 36.5 C 70 14 106/67 90 L 11/15/17 07:11 11/15/17 08:46 11/15/17 07:11 11/15/17 08:46 11/15/17 07:11 Laboratory Results 11/13/17 15:00 11/13/17 15:00 11/14/17 11/15/17 11/16/17 05:59 05:59 05:59 Intake Total 250 400 Output Total 1576 300 990 Balance -1326 100 -990 PT 18.0 SEC (12.0-15.0) H 11/14/17 04:25 INR 1.47 (0.83-1.16) H 11/14/17 04:25 - Physical Exam Constitutional: no apparent distress, appears nourished, chronically ill appearing Eyes: PERRL, anicteric sclera, EOMI Ears, Nose, Mouth, Throat: moist mucous membranes, hearing normal, ears appear normal Cardiovascular: edema, No JVD, No tachycardia Respiratory: no respiratory distress, no rales or rhonchi, reduced air movement Gastrointestinal: normoactive bowel sounds, No tenderness, No ascites Skin: warm, erythema, pressure ulcer Musculoskeletal: normal joint ROM, no joint effusions, generalized weakness Neurologic: AAOx3 Psychiatric: interacting appropriately, not anxious, not encephalopathic, thought process linear ICD10 Worksheet Patient Problems: Problems Problem Status Onset Abscess of right leg Acute
[2017-11-15] MEDS: CHOLECALCIFEROL VIT D3 2,000 UNITS TAB/CAP PO SCH ×2 (14:03→14:05)
[2017-11-15] MEDS: oxyCODONE IR 5 MG TAB PO PRN ×3 (14:03→21:57)
--- NOTE | 2017-11-15 14:38 | PCMIDPN ---
Assessment/Plan: # RLE Cellulitis with underlying chronic wound R calf: Extensive workup with CT runoff, venogram, EFRAIN all within normal limits. Do suspect underlying venous insufficiency contributing as well as underlying diastolic heart failure. My exam today was limited to his right foot in which erythema was less intense as compared to yesterday. --appreciate Cardiology input to help manage lower extremity edema and heart failure --continue ceftriaxone for coverage of MSSA, strep and past wound culture for Klebsiella and Proteus --continue elevation --discussed possibility of MRI to assess deeper tissues but patient with minimal signs of deeper infection other than lack of healing of wounds. Medications Ceftriaxone 1 g IV daily # 3 Subjective: Patient feels that his leg is some better. Denies any side effects related to antibiotics, no diarrhea no itching no rash Objective: Vital Signs Temp Pulse Resp BP Pulse Ox 36.5 C 71 14 106/54 L 90 L 11/15/17 07:11 11/15/17 11:13 11/15/17 07:11 11/15/17 11:13 11/15/17 07:11 Laboratory Results 11/13/17 15:00 11/13/17 15:00 11/14/17 11/15/17 11/16/17 05:59 05:59 05:59 Intake Total 250 400 Output Total 8793 654 3598 Balance -1326 100 -2215 C-Reactive Protein 14.9 mg/L (<10.0) H 11/13/17 15:00 - Physical Exam General Appearance: alert, no apparent distress EENT: pale conjunctiva Respiratory: No accessory muscle use, No crackles Neck: supple Cardiac/Chest: systolic murmur, irregularly irregular Extremities: erythema (Right foot, more alisa then yesterday, persistent edema, erythema has not served past lines drawn yesterday) Male Genitalia: other (Marked scrotal swelling) Skin: No rash Neuro/Psych: alert, normal mood/affect, oriented x 3 - Time Spent With Patient Time Spent with Patient: greater than 35 minutes (Care coordinated with Tsering Cosme NP) Time Spent with Patient: Greater than 35 minutes spent on this patients care, greater than 50% of time spent counseling, educating, and coordinating care regarding the above mentioned plan. ICD10 Worksheet Patient Problems: Problems Problem Status Onset Abscess of right leg Acute
[2017-11-15] MEDS: WARFARIN SODIUM 5 MG TAB PO SCH (14:55)
[2017-11-15] MEDS: HYDROCODONE/APAP 10/325 TAB PO PRN (18:39)
[2017-11-15] MEDS: TEMAZEPAM 15 MG CAP PO PRN (21:56)
[2017-11-15] MEDS: NIACIN 500 MG TAB PO SCH (21:57)
[2017-11-15] MEDS: ASPIRIN EC 81 MG TAB PO SCH (21:58)
[2017-11-16 05:44] LABS: INR 2.23 (0.83-1.16); PROTIME(PATIENT) 24.7 SEC (12.0-15.0)
[2017-11-16] MEDS: oxyCODONE IR 5 MG TAB PO PRN ×2 (06:35→19:41)
[2017-11-16] MEDS: HYDROCODONE/APAP 10/325 TAB PO PRN ×3 (06:36→22:33)
--- NOTE | 2017-11-16 08:01 | SOAPPROG ---
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 Last echo 06/11 showed LVEF 58%, low normal RVEF, mild-moderate MR, severe TR, and moderately enlarged ascending thoracic aorta 4.0cm. L/R cardiac cath 07/12 showed mild CAD. RHC: RA 8, PA 30/9 (8), PCWP 10 and CO/CI 4.3/2.5 L/min. We last saw him in [facility] in 05/11. He reports he has had worsening leg edema for last five months. PAK at one block. Denies CP, palpitations, fevers, chills or new TIA sx. His weight is up 7lbs from six months ago. Good diuresis on IV lasix and PO Aldactone. He denies CP, rest shortness of breath or dizziness. He feels his leg edema is better although his right leg still aches. PLAN: 1)decrease Lasix to 40mg IV BID 2)rest of meds without changes. 3)echo today to reassess LVEF/RVEF/ degree of TR and degree of pulmonary HTN. 4)probably change IV lasix to PO Demadex Friday or Friday 5)continue IV ceftriaxone and leg wraps. Thanks. 11/16/17 07:58 Subjective: denies CP, rest dyspnea or dizziness when ambulates to the bathroom. Leg edema is better but not gone yet. No abdominal pain. Objective: Vital Signs Temp Pulse Resp BP Pulse Ox 36.5 C 77 16 112/69 95 11/16/17 07:10 11/16/17 07:10 11/16/17 07:10 11/16/17 07:10 11/16/17 07:10 Laboratory Results 11/16/17 04:25 11/16/17 04:25 11/15/17 11/16/17 11/17/17 05:59 05:59 05:59 Intake Total 400 175 Output Total 300 3565 280 Balance 100 -3390 -280 PT 24.7 SEC (12.0-15.0) H 11/16/17 04:25 INR 2.23 (0.83-1.16) H 11/16/17 04:25 Physical Exam - Physical Exam General Appearance: alert, thin EENT: normal ENT inspection Neck: full range of motion Respiratory: lungs clear Cardiac/Chest: regular rate, rhythm, JVD (1/6 LINCOLN heard), systolic murmur, No gallop Peripheral Pulses: 2+: carotid (R), carotid (L), femoral (R), femoral (L), dorsalis-pedis (R), dorsalis-pedis (L) Abdomen: non-tender, No guarding Skin: warm/dry Extremities: non-tender, pedal edema Neuro/Psych: oriented x 3 ICD10 Worksheet Patient Problems: Problems Problem Status Onset Abscess of right leg Acute
[2017-11-16] MEDS: METOPROLOL TARTRATE 25 MG TAB PO SCH ×2 (09:39→21:09)
[2017-11-16] MEDS: morphINE SR 30 MG TAB PO SCH ×2 (09:39→21:10)
[2017-11-16] MEDS: SPIRONOLACTONE 25 MG TAB PO SCH ×2 (09:39→21:09)
[2017-11-16] MEDS: POTASSIUM CL 20 MEQ TAB PO SCH (09:39)
[2017-11-16] MEDS: FUROSEMIDE 40 MG/4 ML VIAL IVP SCH ×2 (09:39→15:27)
[2017-11-16] MEDS: SODIUM HYPOCHLORITE (DAKINS 1/4 STR) 473 ML BTL TP SCH ×2 (09:49→21:35)
--- NOTE | 2017-11-16 10:55 | PCMIDPN ---
Assessment/Plan: # RLE Cellulitis with underlying chronic wound R calf: Extensive workup with CTA runoff, LE venogram, EFRAIN all within normal limits. Suspect underlying venous insufficiency contributing as well as underlying diastolic heart failure. WBC remains normal. Remarkable improvement in redness and swelling today, largest wound measuring slightly smaller @ 5.5 x 5cm, skin sloughing off --continue ceftriaxone --continue elevation --like dc on PO antibiotic tomorrow, Keflex 500mg PO TID based on sensi of proteus, klebs and strong suspicion for streptococcus as primary pathogen --greatly appreciate cardiac input to help reduce edema (negative 3+L) --with improvement, MRI not indicated at this time. Medications Ceftriaxone 1 g IV daily # 4 Subjective: feeling better pleased with improvement of leg Objective: Vital Signs Temp Pulse Resp BP Pulse Ox 36.5 C 77 16 112/69 95 11/16/17 07:10 11/16/17 09:39 11/16/17 07:10 11/16/17 09:39 11/16/17 07:10 Laboratory Results 11/16/17 04:25 11/16/17 04:25 11/15/17 11/16/17 11/17/17 05:59 05:59 05:59 Intake Total 400 175 Output Total 300 3565 280 Balance 100 -3390 -280 C-Reactive Protein 14.9 mg/L (<10.0) H 11/13/17 15:00 - Physical Exam General Appearance: alert, no apparent distress, thin Respiratory: No respiratory distress, No accessory muscle use Extremities: erythema (erythema dorsum R foot and lower leg much improved, skin sloughing off, largest wound 5.5x5cm, edema 30-50% improved since admit) Skin: No rash Neuro/Psych: alert, normal mood/affect, oriented x 3 - Time Spent With Patient Time Spent with Patient: greater than 25 minutes Time Spent with Patient: Greater than 25 minutes spent on this patients care, greater than 50% of time spent counseling, educating, and coordinating care regarding the above mentioned plan. ICD10 Worksheet Patient Problems: Problems Problem Status Onset Abscess of right leg Acute
[2017-11-16] MEDS: HYDROmorphONE/DILAUDID 1 MG/ML INJ IVP PRN (11:16)
--- NOTE | 2017-11-16 11:30 | HOSPPROG ---
Hospitalist Progress Note Assessment/Plan: 77y male with leg wounds. #RLE wounds -multiple wounds -cont supportive care -arterial study normal -cont elevation and diuretics #RLE cellulitis -cont CTX -per ID #Scrotal hernia -future repair with Akil -significant #AFib -lopressor halfed -chronic anticoagulation -therapeutic INR -check INR in am #Diastolic CHF -appreciate cards -hypotensive -edema, much better -adjusted diuretics #Hypotensive -stable -follow, stable #Chronic pain -cont narcotics #Hx CVA -PT #Dispo -unclear possible Friday or Friday on PO diuretics -needs further hospital care -ECHO Subjective: Feeling well today. Still having some pain. Objective: Vital Signs Temp Pulse Resp BP Pulse Ox 36.5 C 77 16 112/69 95 11/16/17 07:10 11/16/17 09:39 11/16/17 07:10 11/16/17 09:39 11/16/17 07:10 Laboratory Results 11/16/17 04:25 11/16/17 04:25 11/15/17 11/16/17 11/17/17 05:59 05:59 05:59 Intake Total 400 175 Output Total 300 3565 530 Balance 100 -3390 -530 PT 24.7 SEC (12.0-15.0) H 11/16/17 04:25 INR 2.23 (0.83-1.16) H 11/16/17 04:25 - Physical Exam Constitutional: no apparent distress, appears nourished, uncomfortable Eyes: PERRL, anicteric sclera Ears, Nose, Mouth, Throat: moist mucous membranes, hearing normal, ears appear normal Cardiovascular: edema, No JVD, No tachycardia Respiratory: no respiratory distress, no rales or rhonchi, reduced air movement Gastrointestinal: normoactive bowel sounds, No tenderness, No ascites Skin: warm, normal color, No mottled Musculoskeletal: no joint effusions, pain with ROM, generalized weakness Neurologic: AAOx3 Psychiatric: interacting appropriately, not anxious, not encephalopathic, thought process linear ICD10 Worksheet Patient Problems: Problems Problem Status Onset Abscess of right leg Acute
--- NOTE | 2017-11-16 15:23 | ECHO ---
[email or web address] [address] Main: [phone] Fax: [email or web address] Echocardiogram Name: SON GOULD MR#: [id number] Study Date: 11/16/2017 Study Time: 12:08 PM Date of : 1940 Age: 77 year(s) Height: 177.8 cm (70 in.) Weight: 62.6 kg (138 lb.) BSA: 1.78 m2 Gender: Male Examination: Echo Indication: CHF/known severe TR/reassess after diuresis Image Quality: Contrast: Requested by: Checo Robles BP: 112 mmHg/69 mmHg Heart Rate: Rhythm: Indication: CHF/known severe TR/reassess after diuresis Procedure Staff Pedicurist: Lala Ventura RDCS Reading Physician: Odilon Zamora MD Requesting Provider: Conclusions: Normal size left ventricle. No LV hypertrophy. Normal global systolic LV function. The ejection fraction is estimated to be 55-60 %. Mildly dilated right ventricle. The left atrium is mildly dilated. The right atrium is severely dilated. Mild mitral valve regurgitation is present. The aortic valve is tri-leaflet. Minimal aortic cusp calcification is noted. Severe tricuspid regurgitation is present. The pulmonary artery pressure is mildly increased. TV leaflets appear to not coapt completely. RVSP is 42mmHG.. The pulmonic valve is normal in appearance and function. Mild to moderate PI. Measurements: Chambers Valvular Assessment AV/MV Valvular Assessment TV/PV Normal Normal Normal Name Value Range Name Value Range Name Value Range Ao Lynn (MM): 3.7 cm (2.2 cm-3.7 AV Vmax: 1.10 m/s (1 m/s-1.7 TR Vmax: 2.84 mm/s ( - ) cm) m/s) TR PGmax: 32 mmHg ( - ) IVSd (2D): 0.7 cm (0.6 cm-1.1 AV meanP mmHg ( - ) syst. PAP: 42 mmHg ( - ) cm) MV E Vmax: 0.97 m/s ( - ) LVDd (2D): 4.5 cm (4.2 cm-5.9 MV A Vmax: 0.31 m/s ( - ) cm) MV E/A: 3.13 ( - ) LVDs (2D): 3.3 cm (2.1 cm-4 cm) LVPWd (2D): 0.8 cm (0.6 cm-1 cm) Patient: SON GOULD Study Date: 11/16/2017 Page 1 of 2 12:08 PM LVEF (MOD4): 60 % (>=55 %) EF Range: 55-60 % Continued Measurements: Chambers Valvular Assessment AV/MV Valvular Assessment TV/PV Name Value Name Value Name Value LADs: 4.7 cm MV E' Septal: 0.10 m/s CVP (est.): 10 mmHg LADs Lon.0 cm MV E/E' Septal: 9.70 LA Area: 22.0 cm2 MV E/E' Lateral: 9.40 Additional Vessels Name Value Inferior Vena Cava: 2.4 cm Findings: Left Ventricle: Normal size left ventricle. No LV hypertrophy. Normal global systolic LV function. The ejection fraction is estimated to be 55-60 %. No regional wall motion abnormality. Right Ventricle: Mildly dilated right ventricle. Left Atrium: The left atrium is mildly dilated. Right Atrium: The right atrium is severely dilated. Mitral Valve: The mitral valve is normal in appearance and function. Mild mitral valve regurgitation is present. Aortic Valve: The aortic valve is tri-leaflet. Minimal aortic cusp calcification is noted. Tricuspid Valve: Severe tricuspid regurgitation is present. The pulmonary artery pressure is mildly increased. TV leaflets appear to not coapt completely. RVSP is 42mmHG.. Pulmonic Valve: The pulmonic valve is normal in appearance and function. Mild to moderate PI. Aorta: The aorta is normal. Pericardium: No pericardial effusion. (No Signature Object) Patient: SON GOULD Study Date: 11/16/2017 Page 2 of 2 12:08 PM [id number]
[2017-11-16] MEDS: WARFARIN SODIUM 5 MG TAB PO SCH (15:26)
[2017-11-16] MEDS: CHOLECALCIFEROL VIT D3 2,000 UNITS TAB/CAP PO SCH (15:26)
[2017-11-16] MEDS: ASPIRIN EC 81 MG TAB PO SCH (21:10)
[2017-11-16] MEDS: NIACIN 500 MG TAB PO SCH (21:10)
[2017-11-16] MEDS: TEMAZEPAM 15 MG CAP PO PRN (22:40)
[2017-11-17 05:21] LABS: INR 2.52 (0.83-1.16); PROTIME(PATIENT) 27.1 SEC (12.0-15.0)
[2017-11-17] MEDS: HYDROCODONE/APAP 10/325 TAB PO PRN ×2 (06:42→18:54)
[2017-11-17] MEDS: POTASSIUM CL 20 MEQ TAB PO SCH (08:20)
[2017-11-17] MEDS: morphINE SR 30 MG TAB PO SCH ×2 (08:20→20:35)
[2017-11-17] MEDS: WARFARIN SODIUM 2.5 MG TAB PO SCH (08:21)
[2017-11-17] MEDS: SPIRONOLACTONE 25 MG TAB PO SCH ×2 (08:21→20:35)
[2017-11-17] MEDS: METOPROLOL TARTRATE 25 MG TAB PO SCH ×2 (08:22→20:35)
[2017-11-17] MEDS: SODIUM HYPOCHLORITE (DAKINS 1/4 STR) 473 ML BTL TP SCH ×2 (08:27→22:31)
--- NOTE | 2017-11-17 08:31 | HOSPPROG ---
Hospitalist Progress Note Assessment/Plan: 77y male with leg wounds. #RLE cellulitis with chronic underlying wound -cont supportive care -arterial study normal -cont elevation and diuretics -Ceftriaxone -reviewed his care w , dc on Keflex for 7 more days and to f/u #Scrotal hernia -future repair with Akil -significant #AFib -Lopressor dose decreased -chronic anticoagulation -therapeutic INR @ 2.5 -CHADSVASc score of 5 #Diastolic CHF -appreciate cards -hypotensive -edema, much better -IV diuretics, will likely be changed to Demadex #Hypotensive -stable -follow, stable #Chronic pain -cont narcotics #Hx CVA -PT #Dispo -will await cards to see and dc later today, home care vs SNF Subjective: Marline is feeling well, no complaints. Objective: Vital Signs Temp Pulse Resp BP Pulse Ox 36.7 C 94 18 111/61 93 11/17/17 08:00 11/17/17 08:22 11/17/17 08:00 11/17/17 08:22 11/17/17 08:00 Laboratory Results 11/16/17 04:25 11/17/17 04:20 11/16/17 11/17/17 11/18/17 05:59 05:59 05:59 Intake Total 175 550 Output Total 3565 2555 250 Balance -0 -2004 -250 PT 27.1 SEC (12.0-15.0) H 11/17/17 04:20 INR 2.52 (0.83-1.16) H 11/17/17 04:20 - Physical Exam Constitutional: no apparent distress, appears nourished Eyes: PERRL Ears, Nose, Mouth, Throat: hearing normal Cardiovascular: irregularly irregular Respiratory: no respiratory distress Gastrointestinal: normoactive bowel sounds Skin: warm Musculoskeletal: full muscle strength Neurologic: AAOx3 Psychiatric: interacting appropriately ICD10 Worksheet Patient Problems: Problems Problem Status Onset Abscess of right leg Acute
[2017-11-17] MEDS: FUROSEMIDE 40 MG/4 ML VIAL IVP SCH (10:16)
--- NOTE | 2017-11-17 12:43 | PDCARPN ---
Cardiology Progress Note Chief Complaint: DCHF/severe TR Assessment/Plan: Assessment: 77 y/o M with PMH bretyllium lung disease, permanent afib, chronic venous insufficiency with leg ulcers/chronic wounds, previous CVA while off anticoagulation, chronic diastolic CHF mostly RV related and severe TR. Last echo in this admission showed LVEF 55-60%, low normal RVEF, mild-moderate MR, severe TR, and moderately enlarged ascending thoracic aorta 4.0cm, mild-mod PI. L/R cardiac cath 07/12 showed mild CAD. RHC: RA 8, PA 30/9 (8), PCWP 10 and CO/ CI 4.3/2.5 L/min. He has had worsening leg edema for last five months. PAK at one block. Denies CP, palpitations, fevers, chills or new TIA sx. #. DCHF: acute on chronic related to RV dysfunction good diuresis on IV lasix will switch to PO today #. Permanent AF: on low dose Metoprolol decreased in this admission HR now appears to be a little higher will consider uptitrating this prior to discharge [id number] at least 5 Continue Warfarin #. cellulitis admitted for this and started on IV CTX #. severe TR: will be evaluated in O/P setting for TV repair Plan: - good diuresis and pt likely close to euvolemic - start Torsemide (had worsening edema on PO lasix) 11/17/17 11:55 Subjective: Urinating vigorously. No dyspnea. Objective: Vital Signs (8 Hrs) Temp Pulse Resp BP Pulse Ox 11/17/17 08:22 94 111/61 11/17/17 08:00 98.1 F 94 18 94/59 L 93 Intake/Output (24 Hrs) 11/16/17 11/17/17 11/18/17 05:59 05:59 05:59 Intake Total 175 550 240 Output Total 3565 2555 1125 Balance -3390 -2004 -885 Intake: Oral (ml) 175 550 240 Output: Urine (ml) 3565 2555 1125 Toilet 2075 Urinal 3565 480 1125 Other: Weight 62.777 kg Intake Quantity Yes Sufficient Number of Voids Toilet 3 2 Urinal 2 Number of Stools Toilet 1 Urinal 1 Result Diagrams: 11/16/17 04:25 11/17/17 04:20 - Physical Exam Constitutional: no apparent distress Ears, Nose, Mouth, Throat: moist mucous membranes Cardiovascular: irregularly irregular, No systolic murmur Respiratory: clear to auscultate bilat, no crackles Gastrointestinal: normoactive bowel sounds Genitourinary: No flank pain Skin: other (venostatic LE changes, some small blisters, erythema c/w venous stasis) Neurologic: AAOx3 Psychiatric: cooperative, interactive ICD10 Worksheet Patient Problems: Problems Problem Status Onset Abscess of right leg Acute
[2017-11-17] MEDS: CHOLECALCIFEROL VIT D3 2,000 UNITS TAB/CAP PO SCH (15:07)
[2017-11-17] MEDS: TORSEMIDE 20 MG TAB PO SCH (15:07)
--- NOTE | 2017-11-17 16:09 | ASMTCMCOM ---
CM Note CM Note Notes: Therapies recommending HC. Patient reports that he is current with [facility]. If he returns home today we will need orders. Date Signed: 11/17/2017 04:08 PM Electronically Signed By:Sydney Vazquez LCSW
[2017-11-17] MEDS: ASPIRIN EC 81 MG TAB PO SCH (20:35)
[2017-11-17] MEDS: NIACIN 500 MG TAB PO SCH (20:35)
[2017-11-17] MEDS: oxyCODONE IR 5 MG TAB PO PRN (22:34)
[2017-11-17] MEDS: TEMAZEPAM 15 MG CAP PO PRN (22:34)
[2017-11-17] MEDS: HYDROmorphONE/DILAUDID 1 MG/ML INJ IVP PRN (23:25)
[2017-11-18] MEDS: HYDROmorphONE/DILAUDID 1 MG/ML INJ IVP PRN (04:17)
[2017-11-18 05:15] LABS: INR 2.31 (0.83-1.16); PROTIME(PATIENT) 25.4 SEC (12.0-15.0)
[2017-11-18] MEDS: HYDROCODONE/APAP 10/325 TAB PO PRN (06:44)
[2017-11-18] MEDS: morphINE SR 30 MG TAB PO SCH (08:26)
[2017-11-18] MEDS: SPIRONOLACTONE 25 MG TAB PO SCH (08:26)
[2017-11-18] MEDS: METOPROLOL TARTRATE 25 MG TAB PO SCH (08:26)
[2017-11-18] MEDS: POTASSIUM CL 20 MEQ TAB PO SCH (08:26)
[2017-11-18] MEDS: TORSEMIDE 20 MG TAB PO SCH (08:26)
[2017-11-18 08:31] VITALS: BP 110/70
--- NOTE | 2017-11-18 09:02 | HOSPPROG ---
Hospitalist Progress Note Assessment/Plan: 77y male with leg wounds. #RLE cellulitis with chronic underlying wound -cont supportive care -arterial study normal -cont elevation and diuretics -Ceftriaxone -reviewed his care w , dunia on Keflex for 7 more days and to f/u #Scrotal hernia -future repair with Akil -significant #AFib -Lopressor dose decreased -chronic anticoagulation -therapeutic INR @ 2.3 -CHADSVASc score of 5 #Diastolic CHF -appreciate cards -hypotensive -edema, much better -on Torsemide, dc Lasix #Hypotensive -stable -follow, stable #Chronic pain -cont narcotics #Hx CVA -PT #Dispo -dc home w f/u with ID and Dr Robles Subjective: Marline is feeling well, eating breakfast; no complaints. Objective: Vital Signs Temp Pulse Resp BP Pulse Ox 36.5 C 93 16 110/70 94 11/18/17 08:00 11/18/17 08:26 11/18/17 08:00 11/18/17 08:26 11/18/17 08:00 Laboratory Results 11/16/17 04:25 11/18/17 04:20 11/17/17 11/18/17 11/19/17 05:59 05:59 05:59 Intake Total 550 1170 Output Total 2555 3975 Balance -2004 -2804 PT 25.4 SEC (12.0-15.0) H 11/18/17 04:20 INR 2.31 (0.83-1.16) H 11/18/17 04:20 - Physical Exam Constitutional: no apparent distress, appears nourished, not in pain Eyes: PERRL Ears, Nose, Mouth, Throat: hearing normal Respiratory: no respiratory distress Gastrointestinal: normoactive bowel sounds Skin: warm Musculoskeletal: full muscle strength Neurologic: AAOx3 Psychiatric: interacting appropriately ICD10 Worksheet Patient Problems: Problems Problem Status Onset Abscess of right leg Acute
--- NOTE | 2017-11-18 09:20 | PDIAF ---
- Diagnosis Diagnosis: RLE cellulitis w chronic wound, afib Code Status: Do Not Resuscitate - Medication Management Discharge Medications: Medications to Continue on Transfer Aspirin EC [Aspirin EC 81 mg (*)] 81 mg PO HS 06/04/17 [Last Taken 06/03/17] Herbals/Supplements -Info Only 1 ea PO DAILY 06/04/17 [Last Taken 06/03/17] Warfarin Sodium [Coumadin 5MG (*)] 5 mg PO SUTUTHSA 06/04/17 [Last Taken ] morphINE SR [MS Contin/Oramorph SR 30 mg (*)] 30 mg PO BID 06/04/17 [Last Taken 06/03/17] Cholecalciferol Vit D3 [Vitamin D3 2000 units tab (OTC)] 2,000 units PO DAILY@ 12 11/13/17 [Last Taken Unknown] HYDROcodone/APAP 10/325 [Edgar 10/325 (*)] 2 tab PO Q4-6PRN PRN 11/13/17 [Last Taken Unknown] Lubiprostone [Amitiza 24 mcg (*)] 24 mcg PO BID PRN 11/13/17 [Last Taken Unknown ] Multivitamins [Multivitamin (*)] 1 each PO DAILY 11/13/17 [Last Taken Unknown] Niacin [Niacin 500 mg (*)] 500 mg PO HS 11/13/17 [Last Taken Unknown] Potassium Cl [Klor-Con 20 meq (*)] 20 meq PO DAILY 11/13/17 [Last Taken Unknown] Sennosides/Docusate Sodium [Senna-S Tablet] 1 each PO DAILY PRN 11/13/17 [Last Taken Unknown] Temazepam [Restoril 15 MG (*)] 15 - 30 mg PO HSPRN PRN 11/13/17 [Last Taken Unknown] Warfarin Sodium [Coumadin 2.5MG (*)] 2.5 mg PO MWF 11/13/17 [Last Taken Unknown] Cephalexin [Keflex (*)] 500 mg PO TID #21 cap 11/18/17 [Last Taken Unknown] Metoprolol Tartrate [Lopressor 50 mg (*)] 25 mg PO BID #0 11/18/17 [Last Taken Unknown] Sodium Hypochlorite [Dakin's 05/29 Str] 0 ml TP BID #1 btl 11/18/17 [Last Taken Unknown] Spironolactone [Aldactone 25 MG (*)] 25 mg PO BID #60 tab 11/18/17 [Last Taken Unknown] Torsemide [Demadex] 60 mg PO BID@0900,1500 #180 tab 11/18/17 [Last Taken Unknown ] Discharge Medications: Refer to the Discharge Home Medication list for PRN reason. - Orders Services needed: Home Care, Registered Nurse, Physical Therapy, Occupational Therapy Home Care Face to Face: I certify that this patient was under my care and that I had the required [id number] encounter meeting the encounter requirements on the discharge day. My findings support the fact that the patient is homebound as defined in Home Care Face to Face Continued: CMS Chapter 7 Medicare Benefits Manual 30.1.1 , The condition of the patient is such that there exists a normal inability to leave home and consequently, leaving home would require a considerable and taxing effort. Diet Recommendation: no restrictions on diet Diet Texture: Regular Texture Diet Additional Instructions: Please resume appointment schedule and outpatient wound care plan after discharge. Lis CHINCHILLA stop Lasix completely, you are now on Torsemide and Aldactone see Dr Robles or Sheyla Love in the next two weeks see Dr Kwon or Dr Murray in the next week prior to finishing the antibiotics start the antibiotics tomorrow We have been giving you half of the Metoprolol dose. You were on 50 mg now on 25 mg, your blood pressure has been too low. Cut your pill in half. Talk with Dr Robles when he wants you to resume the 50 mg dose weigh yourself daily; if weight increase by 3 pounds in one day; call Dr Robles - Labs/Radiology BMP Date: 11/27/17 Other Lab Name, Date and Time: BNP on 11/27/17 Call or Fax Lab and Imaging Results to: call lab results to Sheyla Love or Dr Robles - Follow Up Care Current Providers and Referrals: Sheyla Love PA [Physician Grind Operator] - Checo Robles MD [Medical Doctor] - Chas Gilman MD [Primary Care Provider] - Sosa Kwon MD [Medical Doctor] -
--- NOTE | 2017-11-18 09:29 | ASMTDCNOTE ---
Case Management Discharge Discharge Order Complete? Answers: Yes Patient to Obtain Answers: Independently Medications Transportation Arranged Answers: Family/Friends Faxed Final Orders Answers: Yes Discharge Comments Notes: Patient discharged home with [facility]. Orders to resume home OT/PT/RN sent to [facility]. Patient's neighbor to transport home. Date Signed: 11/18/2017 09:28 AM Electronically Signed By:Anabela Deng RN
--- NOTE | 2017-11-18 09:29 | ASMTLACE ---
LACE Length of stay for Answers: 4-6 days current admission Acuity / Level of Answers: Yes Care: Did the patient have an inpatient admission? Comorbidities - select Answers: Any tumor (including all that apply lymphoma or leukemia) Cerebrovascular disease (CVA, TIA, aneurysms, vasc ular dementia) Congestive heart failure Coronary Artery Disease Opioid dependence / Chronic pain # of Emergency department Answers: 1-2 visits in the last 6 months Score: 19 Date Signed: 11/18/2017 09:29 AM Electronically Signed By:Anabela Deng RN
--- NOTE | 2017-11-18 09:48 | GDS ---
[f rep st] DISCHARGE SUMMARY DISCHARGE DIAGNOSES: 1. Right lower extremity cellulitis with chronic underlying wound. 2. Scrotal hernia. 3. Atrial fibrillation. 4. Diastolic congestive heart failure. 5. Hypotension. 6. Chronic pain. 7. History of cerebrovascular accident. CONSULTATIONS: 1. Dr. Sosa Kwon. 2. Dr. Cory Tovar. BRIEF HISTORY: The patient is a 77-year-old male who has been followed by Dr. [facility], who was admitted for suspected cellulitis. His problems began when, in May, he underwe nt a debridement for an abscess and it never really healed. He was admitted and treated with IV anti biotics. He is markedly improved. Today he will be discharged home and further follow up with Dr. Kristie mario. In addition, he had some diastolic congestive heart failure. He was treated with IV Lasix. He now will be discharged home on torsemide and further follow up with Dr. Robles. HOSPITAL COURSE: 1. Right lower extremity cellulitis with chronic underlying wound. He will be discharged home on Ke flex. 2. Scrotal hernia. He will follow up with Dr. Barnard in the outpatient setting. 3. Atrial fibrillation. He has a CHADS-VASc score of 5. He is on Coumadin and anticoagulated. His Lopressor dose was decreased due to low blood pressure. 4. Diastolic congestive heart failure. His edema is much better. He is on torsemide, as well as Al dactone. 5. Hypotension, resolved. 6. Chronic pain. Resumed his home medications. 7. History of CVA. Will get home care, PT, OT. DISCHARGE CONDITION: Stable. Blood pressure is 110/70, heart rate 93. Respiratory rate is 16. O2 sats on room air 94%. Temperature is 36.5 Celsius. DISCHARGE MEDICATIONS: Please see the EMR. Multiple changes have been made. DISCHARGE INSTRUCTIONS: 1. Stop the Lasix. 2. He will be on torsemide and Aldactone instead. 3. Weigh himself daily. If his weight increases by 3 pounds, to call Cardiology. 4. To follow up with Infectious Disease prior to finishing his antibiotics. 5. If he develops fever, chills, chest pain or shortness of breath, return to the ER. Greater than 30 minutes discharging and coordinating his care. Copy requested to: Dr. Robles /[id number]/MODL
[2017-11-18] MEDS: SODIUM HYPOCHLORITE (DAKINS 1/4 STR) 473 ML BTL TP SCH (11:36)
--- NOTE | 2017-11-18 13:39 | ASDISCHSUM ---
Discharge Information Plan Status:Home with Home Health Medically Cleared to Leave: Discharge Date:11/18/2017 11:05 AM D/C Disposition: [facility] D/C Disposition:[id number] Projected Discharge Date:11/18/2017 11:00 AM Transportation at D/C: Discharge Delay Reason: Follow-Up Date:11/18/2017 11:00 AM Discharge Slot: Final Diagnosis: Placement Information Referral Type:*Home Health Care Services Referral ID:[id number] Provider Name:[facility] - [facility] ([facility]) Address 1:[address] [place] [address] Address 2: City:[place] Selection Factors: State:[place] Patient Contact Information Contact Name:CHRIS Relationship:Daughter Address:[address] Home Phone: City:[place] Alternate Phone: State/Zip Code:[place] [address] Email: Financial Information Financial Class:Medicare Primary Plan Desc:MEDICARE INPATIENT Primary Plan Number:[id number] Secondary Plan Desc:LADARIUS LARA INDEMBINGTY Secondary Plan Number:[id number] Assessment Information LACE LACE Length of stay for Answers: 4-6 days current admission Acuity / Level of Answers: Yes Care: Did the patient have an inpatient admission? Comorbidities - select Answers: Any tumor (including all that apply lymphoma or leukemia) Cerebrovascular disease (CVA, TIA, aneurysms, vasc ular dementia) Congestive heart failure Coronary Artery Disease Opioid dependence / Chronic pain # of Emergency department Answers: 1-2 visits in the last 6 months Score: 19 Date Signed: 11/18/2017 09:29 AM Electronically Signed By:Anabela Deng RN [facility] Progress Note CM Note CM Note Notes: Pt admitted for a non healing leg wound, he sees Dr Barnard once a week at the wound clinic. 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 DC needs unclear, no therapies ordered, CM w/f. DC Plan: TBD Date Signed: 11/14/2017 12:52 PM Electronically Signed By:Jhoana Mon RN [facility] CM Progress Note CM Note CM Note Notes: Therapies recommending HC. Patient reports that he is current with [facility]. If he returns home today we will need orders. Date Signed: 11/17/2017 04:08 PM Electronically Signed By:Sydney Vazquez LCSW Case Management Discharge Plan Note Case Management Discharge Discharge Order Complete? Answers: Yes Patient to Obtain Answers: Independently Medications Transportation Arranged Answers: Family/Friends Faxed Final Orders Answers: Yes Discharge Comments Notes: Patient discharged home with [facility]. Orders to resume home OT/PT/RN sent to [facility]. Patient's neighbor to transport home. Date Signed: 11/18/2017 09:28 AM Electronically Signed By:Anabela Deng RN Intervention Information Intervention Type:*IM-Signed Date of Service:11/18/2017 10:23 AM Patient Type:Inpatient Staff Member:Sharron Solis Hours: Discipline: Severity: Comment:
== END 2017-11-18 11:05 | disposition home health service (06) | DRG 603 ==
LOC: F3E 11:00
PROVIDERS: ADMIT Student in an Organized Health Care Education/Training Program; ATTEND Student in an Organized Health Care Education/Training Program
DX: L03.116 Cellulitis of left lower limb (principal); B96.4 Proteus (mirabilis) (morganii) as the cause of diseases classified elsewhere; B96.1 Klebsiella pneumoniae [K. pneumoniae] as the cause of diseases classified elsewhere; L97.929 Non-pressure chronic ulcer of unspecified part of left lower leg with unspecified severity; I87.2 Venous insufficiency (chronic) (peripheral); I50.30 Unspecified diastolic (congestive) heart failure; I48.2 Chronic atrial fibrillation; K40.90 Unilateral inguinal hernia, without obstruction or gangrene, not specified as recurrent; G89.29 Other chronic pain; I95.9 Hypotension, unspecified; J63.2 Berylliosis; I07.1 Rheumatic tricuspid insufficiency; Z79.01 Long term (current) use of anticoagulants; R79.1 Abnormal coagulation profile; Z85.46 Personal history of malignant neoplasm of prostate; Z96.649 Presence of unspecified artificial hip joint; Z66 Do not resuscitate
CPT/HCPCS: 97116-GP; 97161-GP; 97165-GO; 97535-GO; G8978-GP-CJ; G8979-GP-CI; G8987-GO-CI; G8988-GO-CI; J0696; J1170; J1940

== ENCOUNTER 2018-02-25 08:23 | Emergency (ER) | payer OTHER ==
--- NOTE | 2018-02-25 09:10 | EDPHY ---
H & P Stated Complaint: constipation Time Seen by Provider: 02/25/18 08:56 HPI/ROS: CHIEF COMPLAINT: "I am constipated" HISTORY OF PRESENT ILLNESS: 77-year-old male with multiple medical comorbidities complaining of constipation for the past 3 days. He feels he needs to have a bowel movement however he feels that is unable to pass by his rectal vault. He has attempted manual disimpaction unsuccessfully. Describes stool as bria like in consistency. Patient has a history of chronic inguinal hernia and Dr. Maria Del Carmen Barnard is scheduling surgery for this. However he has a chronic right lower extremity wound which is being followed primarily by Dr. Maria Del Carmen Barnard. PRIMARY CARE PROVIDER: REVIEW OF SYSTEMS: 10 systems reviewed and negative with the exception of the elements mentioned in the history of present illness PAST MEDICAL & SURGICAL HISTORY: Past medical history significant for appendectomy, tonsillectomy, right hip arthroplasty, atrial fibrillation, warfarin anticoagulation, chronic inguinal bilateral hernias. SOCIAL HISTORY: Nonsmoker PHYSICAL EXAM (Prior to examination, patient consented to physical exam, hands were washed and my usual and customary physical exam procedures followed) 1) GENERAL: Well-developed, well-nourished, alert and oriented. Appears to be in no acute distress. 2) HEAD: Normocephalic, atraumatic 3) HEENT: Pupils equal, round, reactive to light bilaterally. Sclera anicteric. Nasopharynx, oropharynx, clear, no lesions. MoistDry mucous membranes. Ears bilaterally with normal tympanic membranes. 4) NECK: Full range of motion, no meningeal signs. 5) LUNGS: Clear auscultation bilaterally, no wheezes, no rhonchi, no retractions. 6) HEART: Regular rate and rhythm, no murmur, no heave, no gallop. 7) ABDOMEN: No guarding, no rebound, no focal tenderness, negative McBurney's, negative Ware's, negative Rovsing's, negative peritoneal sign, unable to elicit any abdominal pain on exam 8) MUSCULOSKELETAL: Moving all extremities, no focal areas of tenderness, no obvious trauma. No peripheral edema or discoloration. 9) BACK: No CVA tenderness, no midline vertebral tenderness, no fluctuance, no step-off, no obvious trauma, no visual or palpable abnormality. 10) SKIN: No rash, no petechiae. 11) : Scrotal mass consistent with inguinal hernia noted. No evidence of Tim's gangrene. Rectal examination reveals multiple bria like hard pieces of stool in the rectal vault DIFFERENTIAL DIAGNOSIS: In no particular include but limited to bowel obstruction, constipation, obstipation - Personal History Current Tetanus Diphtheria and Acellular Pertussis (TDAP): Unsure - Medical/Surgical History Hx Asthma: No Hx Chronic Respiratory Disease: No Hx Diabetes: No Hx Cardiac Disease: Yes Hx Renal Disease: No Hx Cirrhosis: No Hx Alcoholism: No Hx HIV/AIDS: No Hx Splenectomy or Spleen Trauma: No Other PMH: appy, tonsilectomy, R hip replacement, cardiac ablation, afib, CVA, LARISA inguinal hernias, hydrocele L testicle, arthritis, - Social History Smoking Status: Former smoker Constitutional: Initial Vital Signs Temperature (C) 36.7 C 02/25/18 08:27 Heart Rate 88 02/25/18 08:27 Respiratory Rate 18 02/25/18 08:27 Blood Pressure 94/62 L 02/25/18 08:27 O2 Sat (%) 99 02/25/18 08:27 O2 Delivery Mode Room Air Allergies/Adverse Reactions: Sulfa (Sulfonamide Antibiotics) Allergy (Unknown, Verified 02/25/18 08:25) amiodarone [Amiodarone] Allergy (Verified 02/25/18 08:25) amlodipine Allergy (Verified 02/25/18 08:25) Home Medications: Medication Instructions Recorded Aspirin EC [Aspirin EC 81 mg (*)] 81 mg PO HS 06/04/17 Herbals/Supplements -Info Only 1 ea PO DAILY 06/04/17 Warfarin Sodium [Coumadin 5MG (*)] 5 mg PO SUTUTHSA 06/04/17 morphINE SR [MS Contin/Oramorph SR 30 mg PO BID 06/04/17 30 mg (*)] Cholecalciferol Vit D3 [Vitamin D3 2,000 units PO DAILY@12 11/13/17 2000 units tab (OTC)] HYDROcodone/APAP 325 [[place] 2 tab PO Q4-6PRN PRN 11/13/17 10325 (*)] Lubiprostone [Amitiza 24 mcg (*)] 24 mcg PO BID PRN 11/13/17 Multivitamins [Multivitamin (*)] 1 each PO DAILY 11/13/17 Niacin [Niacin 500 mg (*)] 500 mg PO HS 11/13/17 Potassium Cl [Klor-Con 20 meq (*)] 20 meq PO DAILY 11/13/17 Sennosides/Docusate Sodium 1 each PO DAILY PRN 11/13/17 [Senna-S Tablet] Temazepam [Restoril 15 MG (*)] 15 - 30 mg PO HSPRN PRN 11/13/17 Warfarin Sodium [Coumadin 2.5MG 2.5 mg PO MWF 11/13/17 (*)] Metoprolol Tartrate [Lopressor 50 25 mg PO BID #0 11/18/17 mg (*)] Sodium Hypochlorite [Dakin's 1/4 0 ml TP BID #1 btl 11/18/17 Str] Spironolactone [Aldactone 25 MG 25 mg PO BID #60 tab 11/18/17 (*)] Torsemide [Demadex] 60 mg PO BID@0900,1500 #180 tab 11/18/17 Peg 3350/Na Sulf,Bicarb,Cl/KCl 1,000 ml PO ONCE #4000 ml 02/25/18 [Golytely (RX)] Medical Decision Making Procedures: 9:01 a.m.: Procedure: Manual disimpaction Indication: Constipation Indications risks benefits discussed with patient and he provided verbal consent. Using my usual and customary technique I manually disimpacted multiple bria like pieces of stool from his rectal vault. This caused patient discomfort however he tolerated procedure well. ED Course/Re-evaluation: 9:07 a.m.: After manual disimpaction by myself, soapsuds enema will be placed by nursing staff. 10:18 a.m.: Patient received soapsuds enema. At this time I was informed that he would like to be discharged. He reports that he had a large bowel movement would like to be discharged. He is asymptomatic, no abdominal pain. He will be discharged with GoLYTELY. My usual customary abdominal precautions instructions provided. I saw this patient independently based on established practice protocols. Care of patient under supervision of secondary supervising physician Dr De Leon with whom I discussed case. Departure - Departure Disposition: Home, Routine, Self-Care Clinical Impression: Constipated Qualifiers: Constipation type: unspecified constipation type Qualified Code(s): K59.00 - Constipation, unspecified Condition: Good Instructions: Constipation (ED), High Fiber Diet (ED) Additional Instructions: Seek immediate medical attention if you develop new or worsening symptoms, if you develop fevers, chills, inability to tolerate oral intake or any other symptoms that concerns you. Referrals: Chas Gilman MD [Primary Care Provider] - 1-2 days without fail Prescriptions: Peg 3350/Na Sulf,Bicarb,Cl/KCl [Golytely (RX)] 1,000 ml PO ONCE #4000 ml
[2018-02-25 10:30] VITALS: BP 109/75
== END 2018-02-25 10:28 | disposition home or self-care (01) ==
DX: K59.00 Constipation, unspecified (principal); Z87.891 Personal history of nicotine dependence

== ENCOUNTER 2018-05-01 13:12 | Emergency (ER) | payer OTHER ==
[2018-05-01 13:20] VITALS: BP 120/79
--- NOTE | 2018-05-01 14:10 | EDPHY ---
H & P Stated Complaint: c/o constipation x 4 days Source: Patient Exam Limitations: No limitations - Medical/Surgical History Hx Asthma: No Hx Chronic Respiratory Disease: No Hx Diabetes: No Hx Cardiac Disease: Yes Hx Renal Disease: No Hx Cirrhosis: No Hx Alcoholism: No Hx HIV/AIDS: No Hx Splenectomy or Spleen Trauma: No Other PMH: constipation, appy, tonsilectomy, R hip replacement, cardiac ablation , afib, CVA, LARISA inguinal hernias, hydrocele L testicle, arthritis, chf - Social History Smoking Status: Former smoker Time Seen by Provider: 05/01/18 14:09 HPI/ROS: HPI: This is a 77-year-old male who presents with Chief Complaint: Constipation x4 days Location: Abdomen Quality: Constipation Duration: 4 days Signs and Symptoms: no fever, no nausea, no vomiting, no hematemesis, no blood in stool, no abdominal bloating, no diarrhea, no back pain, no urinary symptoms , no testicular/groin pain, no indigestion, no chest pain, no shortness of breath Timing: Acute on chronic Severity: [id number] Context: Patient reports that he has a history of constipation, appendectomy, inguinal hernia presents with complaints of not having a bowel movement x4 days. He reports that he takes [place] for chronic pain. While at home he has been increasing fluids and actually manually disimpacted himself prior to arrival in the emergency room. While waiting in the emergency room patient, had a small bowel movement in his pull up and then another small bowel movement while waiting in the emergency room. Patient denies any vomiting, diarrhea, fever. He is eating and drinking without difficulty. Modifying Factors: See above Comment: ROS: A comprehensive 10 system review of systems is otherwise negative aside from elements mentioned in the history of present illness. MEDICAL/SURGICAL/SOCIAL HISTORY: Medical/surgical history: constipation, appy, tonsillectomy, R hip replacement , cardiac ablation, afib, CVA, LARISA inguinal hernias, hydrocele L testicle, arthritis, chf Social history: Former smoker. Family history noncontributory. CONSTITUTIONAL: Elderly white male, awake and alert, no obvious distress HEENT: Atraumatic and normocephalic, PERRL, EOMI. Nares patent; no rhinorrhea; no nasal mucosal edema. Tympanic membranes clear. Oropharynx clear, no exudate and moist pink mucosa. Airway patent. No lymphadenopathy. No meningismus. Cardiovascular: Normal S1/S2, regular rate, regular rhythm, without murmur rub or gallop. PULMONARY/CHEST: Symmetrical and nontender. Clear to auscultation bilaterally. Good air movement. No accessory muscle usage. ABDOMEN: Soft, nondistended, nontender, no rebound, no guarding, no peritoneal signs, no masses or organomegaly. No CVAT. Bowel sounds heard x4 quadrants. EXTREMITIES: 2/2 pulses, strength 5/5, no deformities, no clubbing, no cyanosis or edema. NEUROLOGICAL: no focal neuro deficits. GCS 15. SKIN: Warm and dry, no erythema. no rash. Good capillary refill. (Neelima Weaver) Constitutional: Initial Vital Signs Temperature (C) 36.9 C 05/01/18 13:18 Heart Rate 96 05/01/18 13:18 Respiratory Rate 18 05/01/18 13:18 Blood Pressure 120/79 05/01/18 13:18 O2 Sat (%) 91 L 05/01/18 13:18 O2 Delivery Mode Room Air Allergies/Adverse Reactions: Sulfa (Sulfonamide Antibiotics) Allergy (Unknown, Verified 05/01/18 13:21) amiodarone [Amiodarone] Allergy (Verified 05/01/18 13:21) amlodipine Allergy (Verified 05/01/18 13:21) Home Medications: Medication Instructions Recorded Aspirin EC [Aspirin EC 81 mg (*)] 81 mg PO HS 06/04/17 Herbals/Supplements -Info Only 1 ea PO DAILY 06/04/17 Warfarin Sodium [Coumadin 5MG (*)] 5 mg PO SUTUTHSA 06/04/17 morphINE SR [MS Contin/Oramorph SR 30 mg PO BID 06/04/17 30 mg (*)] Cholecalciferol Vit D3 [Vitamin D3 2,000 units PO DAILY@12 11/13/17 2000 units tab (OTC)] HYDROcodone/APAP 10325 [[place] 2 tab PO Q4-6PRN PRN 11/13/17 10325 (*)] Lubiprostone [Amitiza 24 mcg (*)] 24 mcg PO BID PRN 11/13/17 Multivitamins [Multivitamin (*)] 1 each PO DAILY 11/13/17 Niacin [Niacin 500 mg (*)] 500 mg PO HS 11/13/17 Potassium Cl [Klor-Con 20 meq (*)] 20 meq PO DAILY 11/13/17 Sennosides/Docusate Sodium 1 each PO DAILY PRN 11/13/17 [Senna-S Tablet] Temazepam [Restoril 15 MG (*)] 15 - 30 mg PO HSPRN PRN 11/13/17 Warfarin Sodium [Coumadin 2.5MG 2.5 mg PO MWF 11/13/17 (*)] Metoprolol Tartrate [Lopressor 50 25 mg PO BID #0 11/18/17 mg (*)] Sodium Hypochlorite [Dakin's 1/4 0 ml TP BID #1 btl 11/18/17 Str] Spironolactone [Aldactone 25 MG 25 mg PO BID #60 tab 11/18/17 (*)] Torsemide [Demadex] 60 mg PO BID@0900,1500 #180 tab 11/18/17 Peg 3350/Na Sulf,Bicarb,Cl/KCl 1,000 ml PO ONCE #4000 ml 02/25/18 [Golytely (RX)] Peg 3350/Na Sulf,Bicarb,Cl/KCl 1,000 ml PO ONCE #4000 ml 05/01/18 [Golytely (RX)] Medical Decision Making ED Course/Re-evaluation: Vital signs reviewed and stable upon arrival. Patient had a bowel movement x2 while waiting in the emergency room. Abdomen is soft and nontender. Doubt surgical process and need for imaging. Chart review shows that he did well with GoLYTELY in the past will give a prescription for same. This patient was seen under the supervision of my secondary supervising physician. I evaluated care for this patient independently. Discussed this patient with Dr. Fontana who did not see the patient. (Neelima Weaver) The patient was evaluated and managed by the physician patient care nursing assistant. I have reviewed this chart and I agree with the findings and plan of care as documented , as indicated by my signature. I am the secondary supervising physician. ( Kasey Fontana) Differential Diagnosis: Differential diagnosis includes but is not limited to fecal impaction, obstruction, ileus, obstipation, constipation. (Neelima Weaver) Departure - Departure Disposition: Home, Routine, Self-Care Clinical Impression: Constipation due to pain medication Condition: Good Instructions: Polyethylene Glycol 3350/Electrolytes (By mouth), Constipation ( ED), High Fiber Diet (ED) Additional Instructions: Consume a minimum of 8-10 glasses of water or electrolyte fluid replacement drinks that include Gatorade, Powerade, Pedialyte. Eat a bland diet for the next 48 hours and then slowly advance as tolerated. Take GoLYTELY at 1000 mL x1. Return to the Emergency Room if symptoms do not resolve in the next 48-72 hours , you spike a fever > 102 F, or experience intractable abdominal pain/nausea/ vomiting. Referrals: Chas Gilman MD [Primary Care Provider] - As per Instructions Prescriptions: Peg 3350/Na Sulf,Bicarb,Cl/KCl [Golytely (RX)] 1,000 ml PO ONCE #4000 ml
== END 2018-05-01 14:57 | disposition home or self-care (01) ==
DX: K59.03 Drug induced constipation (principal)

== ENCOUNTER → 2018-05-14 | Outpatient (CLI) | payer OTHER | LOC: FIMAGING 12:05 | PROVIDERS: ATTEND Surgery | DX: L97.211 Non-pressure chronic ulcer of right calf limited to breakdown of skin (principal); L03.115 Cellulitis of right lower limb; I87.2 Venous insufficiency (chronic) (peripheral) ==

== ENCOUNTER → 2018-08-13 | Outpatient (CLI) | payer OTHER | LOC: CIMAGING 14:15 | PROVIDERS: ATTEND Family Medicine | DX: I50.32 Chronic diastolic (congestive) heart failure (principal) | CPT/HCPCS: 71046-PO ==

== ENCOUNTER → 2018-09-14 | Outpatient (CLI) | payer OTHER | LOC: BHFA 14:45 | PROVIDERS: ATTEND Internal Medicine Cardiovascular Disease | DX: Z01.810 Encounter for preprocedural cardiovascular examination (principal); I48.91 Unspecified atrial fibrillation; I50.32 Chronic diastolic (congestive) heart failure; R06.02 Shortness of breath ==

== ENCOUNTER → 2018-09-16 | Outpatient (CLI) | payer OTHER | LOC: CIMAGING 14:47 | PROVIDERS: ATTEND Family Medicine | DX: R91.8 Other nonspecific abnormal finding of lung field (principal); R09.02 Hypoxemia; I25.10 Atherosclerotic heart disease of native coronary artery without angina pectoris; I77.810 Thoracic aortic ectasia; T56 Toxic effect of metals | CPT/HCPCS: 71250-PO ==

== ENCOUNTER → 2018-10-13 | Outpatient (CLI) | payer OTHER | LOC: BHFA 16:15 | PROVIDERS: ATTEND Internal Medicine Cardiovascular Disease | DX: I50.9 Heart failure, unspecified (principal) ==

== ENCOUNTER 2018-10-16 07:01 | Inpatient (IN) | payer OTHER ==
--- NOTE | 2018-10-16 07:03 | PDGENHP ---
History and Physical - Chief Complaint Giant left inguinal hernia - History of Present Illness 78 year old who first developed hernia on right side 30 years ago and then developed hernia on the left side. The hernia on the left is giant and he needs to be careful when sitting down. It is heavy and causes difficulty with clothing walking and sitting. He does not have difficulty going the bathroom. He is ready to have it repaired. History Information - Allergies/Home Medication List Allergies/Adverse Reactions: Sulfa (Sulfonamide Antibiotics) Allergy (Unknown, Verified 10/08/18 13:16) Hives amiodarone [Amiodarone] Allergy (Verified 10/08/18 13:16) Hives Home Medications: Herbals/Supplements -Info Only 1 ea PO DAILY 06/04/17 [Last Taken 06/03/17] Warfarin Sodium [Coumadin 5MG (*)] 5 mg PO SUTUTHSA@06/04/17 [Last Taken 02/10] morphINE SR [MS Contin/Oramorph SR 30 mg (*)] 30 mg PO BID 06/04/17 [Last Taken 06/03/17] HYDROcodone/APAP 10/325 [Gravette 10/325 (*)] 1 tab PO Q4-6PRN PRN 11/13/17 [Last Taken Unknown] Multivitamins [Multivitamin (*)] 1 each PO DAILY 11/13/17 [Last Taken Unknown] Warfarin Sodium [Coumadin 2.5MG (*)] 2.5 mg PO MWF@11/13/17 [Last Taken Unknown] Acetaminophen [Tylenol 325mg (*)] 325 mg PO Q6 PRN 10/08/18 [Last Taken Unknown] Metoprolol Tartrate [Lopressor 25 mg (*)] 12.5 mg PO BID 10/08/18 [Last Taken Unknown] Temazepam 30 mg PO HS 10/08/18 [Last Taken Unknown] Torsemide [Demadex] 40 mg PO DAILY14 10/08/18 [Last Taken Unknown] Torsemide [Demadex] 60 mg PO DAILY 10/08/18 [Last Taken Unknown] I have personally reviewed and updated: family history, medical history, social history, surgical history Past Medical History: Atherosclerosis of coronary artery of [place] heart 2016 --. Atrial fibrillation 07/04/2016 --. Cellulitis of right leg -- -- . CHF (congestive heart failure), NYHA class II, chronic, diastolic 07/04/2016 --. Edema 01/04/2018 --. Shortness of Breath 07/04/2016 --. Tricuspid valve regurgitation, nonrheumatic 07/04/2016 --. Tricuspid valvular disorder - Surgical History Reports: ablation Additional surgical history: radical prostatectomy - Family History Additional family history: tia - Social History Smoking Status: Never smoked Additional social history: Review of Systems Review of Systems: ROS: 2-9 pt reviewed & negative except for what was stated in HPI & below Physical Exam Physical Exam: Constitutional: no apparent distress, appears nourished Eyes: PERRL, EOMI, No icteric sclera, No scleral injection Ears, Nose, Mouth, Throat: hearing normal, other (weak voice) Cardiovascular: regular rate and rhythym, no murmur, rub, or gallop Respiratory: no respiratory distress, no rales or rhonchi Gastrointestinal: normoactive bowel sounds, soft, non-tender abdomen Genitourinary: other (GIANT left inguinal hernia, small right inguinal hernia) Psychiatric: not anxious Assessment & Plan Assessment: Bilateral inguinal hernia Plan: Will proceed with open - may loose testicle, risks and benefits including but not limited to stroke, heart attack, , blood clots infection, bleeding damage to bowel or bladder. If going well, will repair right as well. Will need drain
[2018-10-16] MEDS ORDERED: LR 1,000 ML IV ONE (07:35)
[2018-10-16] MEDS ORDERED: BUPIVACAINE 0.5% 30 ML SDV ONE (07:47)
[2018-10-16] MEDS ORDERED: LIDOCAINE 1% 300 MG/30 ML SDV ONE (07:47)
[2018-10-16 08:01] LABS: INR 0.99 (0.83-1.16); PROTIME(PATIENT) 12.7 SEC (12.0-15.0)
--- NOTE | 2018-10-16 08:10 | PDANEPAE ---
ANE History of Present Illness large inguinal hernia ANE Past Medical History - Cardiovascular History Hx Hypertension: No Hx Arrhythmias: Yes Hx Chest Pain: No Hx Coronary Artery / Peripheral Vascular Disease: Yes Hx CHF / Valvular Disease: No Hx Palpitations: No Cardiovascular History Comment: Afib post ablation - Pulmonary History Hx COPD: No Hx Asthma/Reactive Airway Disease: No Hx Recent Upper Respiratory Infection: No Hx Oxygen in Use at Home: No Hx Sleep Apnea: No Sleep Apnea Screening Result - Last Documented: Negative - Neurologic History Hx Cerebrovascular Accident: Yes Hx Seizures: No Hx Dementia: No Neurologic History Comment: 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 Left eye cataract - Chronic Pain History Chronic Pain: Yes (cervical/lumbar) - Surgical History Prior Surgeries: ablation. right legwound and abcess 2017. PROSTATECTOMY 2010 ANE Review of Systems Review of systems is: negative Review of Systems: - Exercise capacity METS (RN): 3 METS ANE Patient History - Allergies Allergies/Adverse Reactions: Sulfa (Sulfonamide Antibiotics) Allergy (Unknown, Verified 10/08/18 13:16) Hives amiodarone [Amiodarone] Allergy (Verified 10/08/18 13:16) Hives - Home Medications Home medications: home medication list seen and reviewed Home Medications: Herbals/Supplements -Info Only 1 ea PO DAILY 06/04/17 [Last Taken 10/15/18] Warfarin Sodium [Coumadin 5MG (*)] 5 mg PO SUTUTHSA@21 06/04/17 [Last Taken ] morphINE SR [MS Contin/Oramorph SR 30 mg (*)] 30 mg PO BID 06/04/17 [Last Taken 10/15/18] HYDROcodone/APAP 10/325 [[place] 10/325 (*)] 1 tab PO Q4-6PRN PRN 11/13/17 [Last Taken 10/15/18] Multivitamins [Multivitamin (*)] 1 each PO DAILY 11/13/17 [Last Taken 10/15/18] Warfarin Sodium [Coumadin 2.5MG (*)] 2.5 mg PO MWF@21 11/13/17 [Last Taken 10/09] Acetaminophen [Tylenol 325mg (*)] 325 mg PO Q6 PRN 10/08/18 [Last Taken 10/15/18 ] Metoprolol Tartrate [Lopressor 25 mg (*)] 12.5 mg PO BID 10/08/18 [Last Taken 05:30] Temazepam 30 mg PO HS 10/08/18 [Last Taken 10/15/18] Torsemide [Demadex] 20 mg PO DAILY14 10/08/18 [Last Taken 10/15/18] - NPO status NPO Status: no food or drink >8 hours NPO Since - Liquids (Date): 10/16/18 NPO Since - Liquids (Time): 00:00 NPO Since - Solids (Date): 10/15/18 NPO Since - Solids (Time): 23:30 - Anes Hx Anes Hx: no prior problems - Smoking Hx Smoking Status: Never smoked - Family Anes Hx Family Anes Hx: none Family Hx Anesthesia Complications: none ANE Labs/Vital Signs - Vital Signs Height: 179.07 cm Weight: 59.874 kg ANE Physical Exam - Airway Neck exam: FROM Mallampati Score: Class 2 Mouth exam: normal dental/mouth exam - Pulmonary Pulmonary: no respiratory distress, clear to auscultation - Cardiovascular Cardiovascular: no murmur, rub, or gallop, irregularly irregular - ASA Status ASA Status: III ANE Anesthesia Plan Anesthesia Plan: general endotracheal anesthesia
[2018-10-16] MEDS ORDERED: ceFAZolin 2 GM/DEXTROSE 100 ML IV ONE (08:18)
[2018-10-16] MEDS ORDERED: PROPOFOL 200 MG/20 ML VIAL ONE (08:19)
[2018-10-16] MEDS ORDERED: fentaNYL 250 MCG/5 ML INJ ONE (08:19)
[2018-10-16] MEDS ORDERED: ROCURONIUM 50 MG/5 ML VIAL ONE (08:20)
[2018-10-16] MEDS ORDERED: LIDOCAINE 2% 2 ML INJ ONE (08:20)
[2018-10-16] MEDS ORDERED: ePHEDrine SULFATE 25 MG/5 ML SYR ONE (08:45)
[2018-10-16] MEDS ORDERED: ONDANSETRON 4 MG/2 ML VIAL ONE (10:35)
[2018-10-16] MEDS ORDERED: NEOSTIGMINE METHYLSULFATE 10 MG/10 ML MDV ONE (10:37)
[2018-10-16] MEDS ORDERED: GLYCOPYRROLATE 0.2 MG/1 ML VIAL ONE ×2 (10:37)
--- NOTE | 2018-10-16 10:51 | POSTOPPROG ---
Post Op Note Date of Operation: 10/16/18 Surgeon: Maria Del Carmen Barnard Metal Treater: susie Anesthesiologist: neto Anesthesia: GET(General Endotracheal) Pre-op Diagnosis: B inguinal hernia Post-op Diagnosis: same Indication: 78yo M with chronic B inguinal hernias, L>>R Procedure: B open inguinal hernia repairs with mesh Findings: Giant small bowel-containing L, colon-containing R Inf/Abcess present in the surg proc area at time of surgery?: No EBL: Minimal Complications: none immediately postop Bowel Protocol: No Clean Closure Performed: No Drains: Jeff Velez Specimen(s): L inguinal hernia sac
[2018-10-16] MEDS ORDERED: ACETAMINOPHEN 325 MG TAB PO PRN (10:52)
[2018-10-16] MEDS ORDERED: ONDANSETRON 4 MG/2 ML VIAL IVP PRN (10:52)
[2018-10-16] MEDS ORDERED: fentaNYL 100 MCG/2 ML INJ IVP PRN (10:53)
[2018-10-16] MEDS ORDERED: NALOXONE HCL 0.4 MG/ML INJ IVP PRN (10:53)
--- NOTE | 2018-10-16 12:00 | POSTANESTH ---
Post Anesthetic Evaluation Cardiovascular Status: Normal, Stable Respiratory Status: Normal, Stable Level of Consciousness/Mental Status: Can Participate in Eval Pain Control: Adequate, Prn Tx Ordered Nausea/Vomiting Control: Adequate, Prn Tx Ordered Complications Possibly Related to Anesthesia: None Noted
[2018-10-16] MEDS: HYDROCODONE/APAP 10/325 TAB PO PRN ×3 (13:14→22:35)
[2018-10-16] MEDS ORDERED: TORSEMIDE 20 MG TAB PO SCH (14:00)
[2018-10-16] MEDS: SPIRONOLACTONE 25 MG TAB PO SCH (14:31)
[2018-10-16] MEDS: TORSEMIDE 20 MG TAB PO SCH (14:31)
[2018-10-16] MEDS: HYDROmorphONE/DILAUDID 1 MG/ML INJ IVP PRN ×3 (14:31→19:38)
[2018-10-16] MEDS: TEMAZEPAM 15 MG CAP PO SCH (20:11)
[2018-10-16] MEDS: METOPROLOL TARTRATE 25 MG TAB PO SCH (20:11)
[2018-10-16] MEDS: morphINE SR 30 MG TAB PO SCH (20:13)
[2018-10-16] MEDS: WARFARIN SODIUM 5 MG TAB PO SCH (20:13)
[2018-10-17] MEDS: HYDROmorphONE/DILAUDID 1 MG/ML INJ IVP PRN ×4 (00:08→20:53)
[2018-10-17] MEDS: HYDROCODONE/APAP 10/325 TAB PO PRN ×3 (05:09→17:27)
[2018-10-17] MEDS: morphINE SR 30 MG TAB PO SCH ×2 (08:30→20:54)
[2018-10-17] MEDS: SPIRONOLACTONE 25 MG TAB PO SCH ×2 (08:30→14:11)
[2018-10-17] MEDS: METOPROLOL TARTRATE 25 MG TAB PO SCH ×2 (08:32→20:54)
[2018-10-17] MEDS ORDERED: MAGNESIUM HYDROXIDE 30 ML UDCUP PO PRN (11:40)
[2018-10-17] MEDS ORDERED: LACTULOSE 20 GM/30 ML UDCUP PO PRN (11:40)
[2018-10-17] MEDS ORDERED: BISACODYL 10 MG SUPP PR PRN (11:40)
[2018-10-17] MEDS: TORSEMIDE 20 MG TAB PO SCH (14:11)
--- NOTE | 2018-10-17 14:13 | ASMTCMCOM ---
CM Note CM Note Notes: CM spoke with pt and pt's dtr Marilyn in the room; also spoke with RN. Pt has inguinal hernia repair yesterday and worked with PT today. Pt lives alone and dtr lives in [place]. PT is recommending SNF. Pt requested referrals sent to [facility], where pt has been in the past. Referral sent to [facility]. CM to follow. D/C Plan: [facility] pending acceptance Date Signed: 10/17/2018 02:13 PM Electronically Signed By:Jaki Skaggs. RN
--- NOTE | 2018-10-17 14:32 | PDMN ---
Medical Necessity Medical necessity: Change to IP, as of 10/17/18, per MD & MCG; los >2 mn s/p bilateral inguinal hernia repair w/mesh (cpt 21241); awaiting return of bowel function; requiring further monitoring, advancement of diet as tolerated & pain management; comorbid advanced age, CHF, AFIB
--- NOTE | 2018-10-17 16:03 | SOAPPROG ---
SOAP Progress Note Assessment/Plan: Assessment: POD #1 s/p open bilateral open inguinal hernia repair with mesh Ileus - as expected Home meds Clears PT S: No flatus yet, requesting enema O: Sitting up in bed, daughter at bedside CTAB RRR Dressings cdi Drain with serosanguinous fluid Abdomen distended, hypoactive bowel sounds Plan: 10/17/18 16:01 Objective: Vital Signs Temp Pulse Resp BP Pulse Ox 36.9 C 80 16 93/60 L 94 10/17/18 11:47 10/17/18 11:47 10/17/18 11:47 10/17/18 11:47 10/17/18 11:47 10/16/18 10/17/18 10/18/18 05:59 05:59 05:59 Intake Total 1030 Output Total 1150 Balance -120 PT 12.7 SEC (12.0-15.0) 10/16/18 07:45 INR 0.99 (0.83-1.16) 10/16/18 07:45 ICD10 Worksheet Patient Problems: Problems Problem Status Onset Abscess of right leg Acute
[2018-10-17] MEDS ORDERED: PATCH REMOVAL 1 EA PATCH TD PRN (17:06)
[2018-10-17] MEDS ORDERED: LIDOCAINE 4%/MENTHOL 1% PATCH TD PRN (17:30)
[2018-10-17] MEDS: SENNOSIDES/DOCUSATE SODIUM TAB PO SCH (20:54)
[2018-10-17] MEDS: TEMAZEPAM 15 MG CAP PO SCH (20:54)
[2018-10-17] MEDS: WARFARIN SODIUM 5 MG TAB PO SCH (20:54)
[2018-10-18] MEDS: HYDROCODONE/APAP 10/325 TAB PO PRN ×5 (01:42→20:31)
[2018-10-18] MEDS: POLYETHYLENE GLYCOL 3350 17 GM PKT PO PRN (08:28)
[2018-10-18] MEDS: METOPROLOL TARTRATE 25 MG TAB PO SCH ×2 (08:28→20:29)
[2018-10-18] MEDS: SENNOSIDES/DOCUSATE SODIUM TAB PO SCH ×2 (08:28→20:31)
[2018-10-18] MEDS: morphINE SR 30 MG TAB PO SCH ×2 (08:29→20:32)
[2018-10-18] MEDS: SPIRONOLACTONE 25 MG TAB PO SCH ×2 (08:29→14:57)
[2018-10-18] MEDS: LIDOCAINE 4%/MENTHOL 1% PATCH TD PRN (12:06)
--- NOTE | 2018-10-18 13:41 | SOAPPROG ---
SOAP Progress Note Assessment/Plan: Assessment: POD #2 s/p open bilateral open inguinal hernia repair with mesh Ileus - as expected Home meds Clears PT S: No flatus yet, ambulated in hallway O: Sitting up in chair CTAB RRR Dressings cdi Drain with serosanguinous fluid Abdomen distended, hypoactive bowel sounds, soft POORNIMA with scant serosanguinous fluid Some ecchymosis by penis. Scrotum swollen Plan: 10/17/18 16:01 10/18/18 13:41 Objective: Vital Signs Temp Pulse Resp BP Pulse Ox 36.7 C 100 16 132/70 H 97 10/18/18 12:20 10/18/18 12:20 10/18/18 12:20 10/18/18 12:20 10/18/18 12:20 10/17/18 10/18/18 10/19/18 05:59 05:59 05:59 Intake Total 1030 1080 Output Total 1150 1305 Balance -120 -225 PT 12.7 SEC (12.0-15.0) 10/16/18 07:45 INR 0.99 (0.83-1.16) 10/16/18 07:45 ICD10 Worksheet Patient Problems: Problems Problem Status Onset Abscess of right leg Acute
[2018-10-18] MEDS: TORSEMIDE 20 MG TAB PO SCH (14:56)
[2018-10-18] MEDS: HYDROmorphONE/DILAUDID 1 MG/ML INJ IVP PRN (18:01)
[2018-10-18] MEDS: TEMAZEPAM 15 MG CAP PO SCH ×2 (20:33→20:38)
[2018-10-18] MEDS ORDERED: PATCH REMOVAL 1 EA PATCH TD PRN (21:00)
[2018-10-18] MEDS: WARFARIN SODIUM 5 MG TAB PO SCH (21:13)
[2018-10-19] MEDS: HYDROCODONE/APAP 10/325 TAB PO PRN ×3 (05:17→18:29)
[2018-10-19] MEDS: METOPROLOL TARTRATE 25 MG TAB PO SCH ×2 (08:26→20:54)
[2018-10-19] MEDS: morphINE SR 30 MG TAB PO SCH ×2 (08:27→20:56)
[2018-10-19] MEDS: SENNOSIDES/DOCUSATE SODIUM TAB PO SCH ×2 (08:27→20:57)
[2018-10-19] MEDS: SPIRONOLACTONE 25 MG TAB PO SCH ×2 (08:27→14:44)
[2018-10-19] MEDS ORDERED: LIDOCAINE 4%/MENTHOL 1% PATCH TD PRN (09:00)
--- NOTE | 2018-10-19 13:16 | SOAPPROG ---
SOAP Progress Note Assessment/Plan: Assessment: POD #3 s/p open bilateral open inguinal hernia repair with mesh Passing flatus - advance diet Home meds PT S: Flatus - walked further today O: Sitting up in chair CTAB RRR Dressings cdi Drain with serosanguinous fluid Abdomen flat, BS present, soft POORNIMA with scant serosanguinous fluid Some ecchymosis by penis. Scrotum less swollen than yesterday Plan: 10/17/18 16:01 10/18/18 13:41 10/19/18 13:14 Objective: Vital Signs Temp Pulse Resp BP Pulse Ox 36.6 C 99 16 135/86 H 96 10/19/18 11:53 10/19/18 11:53 10/19/18 11:53 10/19/18 11:53 10/19/18 11:53 10/18/18 10/19/18 10/20/18 05:59 05:59 05:59 Intake Total 1080 1120 Output Total 1305 1385 250 Balance -225 -265 -250 PT 12.7 SEC (12.0-15.0) 10/16/18 07:45 INR 0.99 (0.83-1.16) 10/16/18 07:45 ICD10 Worksheet Patient Problems: Problems Problem Status Onset Abscess of right leg Acute
[2018-10-19] MEDS: TORSEMIDE 20 MG TAB PO SCH (14:43)
--- NOTE | 2018-10-19 14:51 | ASMTCMCOM ---
CM Note CM Note Notes: Reviewd chart, dc date uncertain, updated notes and pasrr sent to [place]. DC Plan: [facility] Date Signed: 10/19/2018 02:51 PM Electronically Signed By:Jhoana Mon RN
[2018-10-19] MEDS: TEMAZEPAM 15 MG CAP PO SCH (20:56)
[2018-10-19] MEDS: WARFARIN SODIUM 5 MG TAB PO SCH (20:57)
[2018-10-20] MEDS: HYDROCODONE/APAP 10/325 TAB PO PRN ×2 (04:06→14:55)
[2018-10-20] MEDS: morphINE SR 30 MG TAB PO SCH ×2 (09:24→20:21)
[2018-10-20] MEDS: LIDOCAINE 4%/MENTHOL 1% PATCH TD PRN (09:24)
[2018-10-20] MEDS: POLYETHYLENE GLYCOL 3350 17 GM PKT PO PRN (09:24)
[2018-10-20] MEDS: SPIRONOLACTONE 25 MG TAB PO SCH ×2 (09:24→14:51)
[2018-10-20] MEDS: SENNOSIDES/DOCUSATE SODIUM TAB PO SCH ×2 (09:24→20:24)
[2018-10-20] MEDS: METOPROLOL TARTRATE 25 MG TAB PO SCH ×2 (09:24→20:20)
--- NOTE | 2018-10-20 09:32 | ASMTCMCOM ---
CM Note CM Note Notes: CM spoke to Dr. Barnard. Anticipate d/c for tomorrow. Pt still has a POORNIMA drain but will most likely removed prior to leaving the hospital. Dr. Barnard consulted wound care to see pt today. CM spoke to Galileo from wound care and they will see pt today. Dr. Barnard would like wound care to see pt 2x a week at SNF. The goal is for pt to get stronger in order to d/c home. CM updated [facility] of this. CM to follow. Plan: [facility] Date Signed: 10/20/2018 09:31 AM Electronically Signed By:TRISTAN Wheat
--- NOTE | 2018-10-20 09:56 | SOAPPROG ---
SOAP Progress Note Assessment/Plan: Assessment/Plan: POD #4 s/p open bilateral open inguinal hernia repair with mesh Regular diet Bowel protocol Pain controlled Home meds PT Dispo: likely to SNF tomorrow. S: Passing flatus. No pain this am. Tolerating diet without n/v. No fevers. No testicular pain. O: Sitting up in chair No increased WOB Dressings cdi Drain with serosanguinous fluid BS present, abd soft and nontender POORNIMA with scant serosanguinous fluid Some ecchymosis by penis. Scrotum with swelling. No testicular tenderness. Objective: Vital Signs Temp Pulse Resp BP Pulse Ox 36.3 C 77 16 114/75 90 L 10/20/18 07:26 10/20/18 07:26 10/20/18 07:26 10/20/18 07:26 10/20/18 07:26 10/19/18 10/20/18 10/21/18 05:59 05:59 05:59 Intake Total 1120 350 Output Total 1385 500 Balance -265 -500 350 PT 12.7 SEC (12.0-15.0) 10/16/18 07:45 INR 0.99 (0.83-1.16) 10/16/18 07:45 ICD10 Worksheet Patient Problems: Problems Problem Status Onset Abscess of right leg Acute
--- NOTE | 2018-10-20 12:12 | WOCRNPDOC ---
WOCRN Advanced Assessment Note - Skin Integrity Problem, Advanced Assess Right Lower Leg Dressing Type: Coban, Other Other Dressing Type: Joya, Optilock, foam Dressing Description: Clean/Dry, Intact Closure Description: Not Approximated Exudate Amount: Minimal Exudate Color: Reddish/Yellow Exudate Characteristic(s): Serosanguinous Integumentary Issue Intervention: Dressing Changed, Mechanical Debridement Aleena Wound Tissue: Intact, Thin, Xerotic Wound Bed Color: Black, Rowe, Red Wound Bed Constitution: Granulation Tissue Wound Edges: Epithelizing Site Measurement - Head-to-Toe Length X Width X Depth (cm): 0.6x0.5x0.2 Skin Integrity Problem Comment: Patient well known to wound care and [facility]. Per patient, wound to right lower extremity was last changed 10/15 by his HH RN. Outer dressing with coban is clean, dry, and intact. Dressing removed and patient requested to see it. Patient pleased with decreased exudate and photographed for his own records. Wound bed cleaned with NS and gauze and skin prep applied to aleena-wound tissue. Tore off a small piece of joya, moistened with NS and applied to open area and then covered with KarraMax pad and wrapped with Tim. Spandagrip size D then applied over dressing. Patient tolerated well. Patient expected to DC tomorrow but wound care will place for follow-up early next week in case he remains hospitalized.
[2018-10-20] MEDS: TORSEMIDE 20 MG TAB PO SCH (14:51)
[2018-10-20] MEDS: TEMAZEPAM 15 MG CAP PO SCH (20:23)
[2018-10-20] MEDS: WARFARIN SODIUM 5 MG TAB PO SCH (20:24)
[2018-10-21 07:54] VITALS: BP 111/69
[2018-10-21] MEDS: SPIRONOLACTONE 25 MG TAB PO SCH (08:26)
[2018-10-21] MEDS: METOPROLOL TARTRATE 25 MG TAB PO SCH (08:26)
[2018-10-21] MEDS: morphINE SR 30 MG TAB PO SCH (08:27)
[2018-10-21] MEDS: SENNOSIDES/DOCUSATE SODIUM TAB PO SCH (08:27)
[2018-10-21] MEDS: HYDROmorphONE/DILAUDID 1 MG/ML INJ IVP PRN (09:06)
--- NOTE | 2018-10-21 10:40 | PDIAF ---
- Diagnosis Diagnosis: B inguinal hernia Code Status: Full Code - Medication Management Discharge Medications: electronically signed and located in the Home Medication List. PICC Care - Routine: N/A - Orders Services needed: Registered Nurse, Certified Mobile Product Manager, Physical Therapy, Occupational Therapy Diet Recommendation: no restrictions on diet Diet Texture: Regular Texture Diet Activity/Weight Bearing Restrictions: No heavy lifting, pushing or pulling greater than 10 lb x6 weeks. Additional Instructions: Wound Care: Patient should have Spandagrip size D on bilateral lower legs from balls of feet to 1 inch under the knees. These should be applied each morning before patient gets out of bed, and are to be taken off each night. Change dressings to right lower lateral leg every 3 days and PRN. 1. Clean with NS and gauze 2. Skin prep gaby wound 3. Moisten a small piece of Nette and place over open area. 4. Cover with KerraMax or other super absorbent pad 5. Wrap with Tim and secure with tape Patient to follow-up at [facility] in 2 weeks. Please make an appointment at: [phone] Gissel Vivar RN, Wound Care Team - Follow Up Care Current Providers and Referrals: Chas Gilman MD [Primary Care Provider] - [facility] [Clinic] - 11/04/18
--- NOTE | 2018-10-21 10:53 | ASMTLACE ---
JAMESONE Length of stay for Answers: 4-6 days current admission Acuity / Level of Answers: Yes Care: Did the patient have an inpatient admission? Comorbidities - select Answers: Congestive heart failure all that apply Coronary Artery Disease Other Notes: afib # of Emergency department Answers: 0 visits in the last 6 months Score: 12 Date Signed: 10/21/2018 10:53 AM Electronically Signed By:Jaki Skaggs. KARISHMA
--- NOTE | 2018-10-21 11:20 | ASMTDCNOTE ---
Case Management Discharge Discharge Order Complete? Answers: Yes Patient to Obtain Answers: Other Notes: [facility] Medications Transportation Arranged Answers: Other Notes: [facility] Transport will Pick (Date 10/21/2018 01:00 PM & Time) Faxed Final Orders Answers: Yes Agency/Facility Transfer Answers: Yes Report Printed & Faxed to Receiving Agency Family Notified Answers: Yes Notes: CM called dtr Marilyn Discharge Comments Notes: Pt to discharge to [facility] short term rehab. RN given number for RN report. No further CM needs noted at this time. Date Signed: 10/21/2018 11:18 AM Electronically Signed By:Jaki Skaggs. KARISHMA
--- NOTE | 2018-10-21 12:33 | ASDISCHSUM ---
Discharge Information Plan Status:SNF Medically Cleared to Leave:10/21/2018 Discharge Date:10/21/2018 CM D/C Disposition:Long-Term Facility ADT D/C Disposition:Long-Term Facility Projected Discharge Date:10/21/2018 11:00 AM Transportation at D/C:Wheelchair Van Discharge Delay Reason: Follow-Up Date:10/21/2018 11:00 AM Discharge Slot: Final Diagnosis:inguinal hernia Placement Information Referral Type:*[facility]/SNF Referral ID:[id number] Provider Name:[facility]//CHRISTIAN Address 1:[address] Address 2: City:[place] Selection Factors: State:[place] Patient Contact Information Contact Name:CHRIS Relationship:Daughter Address:[address] Home Phone: City:[place] Alternate Phone: [facility]/Zip Code:[place] [address] Email: Financial Information Financial Class:Medicare Primary Plan Desc:MEDICARE INPATIENT Primary Plan Number:[id number] Secondary Plan Desc:LADARIUS INDEMNITY Secondary Plan Number:[id number] Assessment Information [facility] CM Progress Note CM Note CM Note Notes: CM spoke with pt and pt's dtr Marilyn in the room; also spoke with RN. Pt has inguinal hernia repair yesterday and worked with PT today. Pt lives alone and dtr lives in [place]. PT is recommending SNF. Pt requested referrals sent to [facility], where pt has been in the past. Referral sent to [facility]. CM to follow. D/C Plan: [facility] pending acceptance Date Signed: 10/17/2018 02:13 PM Electronically Signed By:Jaki Skaggs. KARISHMA [facility] CM Progress Note CM Note CM Note Notes: Reviewd chart, dc date uncertain, updated notes and pasrr sent to [facility]. [place] Plan: [facility] Date Signed: 10/19/2018 02:51 PM Electronically Signed By:Jhoana Mon RN LACE LACE Length of stay for Answers: 4-6 days current admission Acuity / Level of Answers: Yes Care: Did the patient have an inpatient admission? Comorbidities - select Answers: Congestive heart failure all that apply Coronary Artery Disease Other Notes: afib # of Emergency department Answers: 0 visits in the last 6 months Score: 12 Date Signed: 10/21/2018 10:53 AM Electronically Signed By:Jaki Davis RN [facility] Progress Note CM Note CM Note Notes: MOISÉS spoke to Dr. Barnard. Anticipate d/c for tomorrow. Pt still has a POORNIMA drain but will most likely removed prior to leaving the hospital. Dr. Barnard consulted wound care to see pt today. CM spoke to Galileo from wound care and they will see pt today. Dr. Barnard would like wound care to see pt 2x a week at [facility]. The goal is for pt to get stronger in order to d/c home. CM updated [facility] [place] of this. CM to follow. Plan: [facility] Date Signed: 10/20/2018 09:31 AM Electronically Signed By:TRISTAN Wheat Case Management Discharge Plan Note Case Management Discharge Discharge Order Complete? Answers: Yes Patient to Obtain Answers: Other Notes: [facility] Medications Transportation Arranged Answers: Other Notes: [facility] Transport will Pick (Date 10/21/2018 01:00 PM & Time) Faxed Final Orders Answers: Yes Agency/Facility Transfer Answers: Yes Report Printed & Faxed to Receiving Agency Family Notified Answers: Yes Notes: CM called corinne Sanders Discharge Comments Notes: Pt to discharge to [facility] short term rehab. RN given number for RN report. No further CM needs noted at this time. Date Signed: 10/21/2018 11:18 AM Electronically Signed By:Jaki Skaggs. KARISHMA Intervention Information Intervention Type:*IM-Signed Date of Service:10/21/2018 12:32 PM Patient Type:Inpatient Staff Member:Jaki Davis RN Hours: Discipline:Health Information Coder Severity: Comment:
[2018-10-21] MEDS: HYDROCODONE/APAP 10/325 TAB PO PRN (12:40)
--- NOTE | 2018-10-21 14:54 | GDS ---
[f rep st] DISCHARGE SUMMARY ADMITTING DIAGNOSIS: Giant left inguinal hernia and right inguinal hernia. SECONDARY DIAGNOSES: History of prostate cancer, atrial fibrillation, status post ablation, chronic pain, hypertension. REASON FOR ADMISSION: An 78-year-old man with large bilateral symptomatic inguinal hernias. He pres ents at this time for surgical intervention, pain control and observation. HOSPITAL COURSE: He was taken to the operating room by Dr. Barnard on 10/16/2018, for open bilateral i nguinal hernia repairs with mesh. At the time of surgery, the left inguinal hernia contained a large amount of small bowel and was giant. The right inguinal hernia was smaller, however, contained some colon, some cecum. He had a POORNIMA drain placed in the left scrotum. On hospital day #1, he was advanc ed to a regular diet and his pain was controlled with oral pain medication. He was tolerating clear liquids. He was tolerating oral pain medication and had a postoperative ileus. By postoperative day #2, he was tolerating a regular diet. By postoperative day #5, his pain was well controlled with or al pain medication. On hospital day #5, swelling had decreased dramatically. His pain was controlle d with oral pain medication. POORNIMA drain output had decreased. His POORNIMA drain was removed without diffic ulty. He was ready for discharge to rehab. CONDITION: He is being [facility]. Pain is controlled with oral pain me dication. Tolerating regular diet. Ambulating independently with return of bowel function. MEDICATIONS: He was instructed to resume home medications. Please see EMR for further detail. DISCHARGE INSTRUCTIONS AND FOLLOWUP: [facility] [address] [place] [address] for ongoing care of his right lower extremity wound. We will perform his postoperative visit at that time. He will call to make an appointment on 11/04/2018. He understands to call with any wors ening symptoms, questions, or concerns. He will avoid heavy lifting, pushing, or pulling greater than 10 pounds for 6 weeks. May shower with out restrictions. No bath tubs, swimming pools, or hot tubs until wounds are healed. /[id number]
--- NOTE | 2018-10-21 15:18 | SOAPPROG ---
SOAP Progress Note Assessment/Plan: Assessment/Plan: POD #5 s/p open bilateral open inguinal hernia repair with mesh Regular diet Bowel protocol Pain controlled Home meds Remove POORNIMA drain PT Seen with Dr. Barnard. Dispo: to SNF today. outpatient wound healing center in 2 weeks for wound care AND post-op check. S: Passing flatus. No pain this am. Tolerating diet without n/v. No fevers. No testicular pain. O: Sitting up in chair No increased WOB Dressings cdi. Ecchymosis and scrotal swelling improving. Drain with serosanguinous fluid Nondistended, abd soft and nontender POORNIMA with scant serosanguinous fluid Objective: Vital Signs Temp Pulse Resp BP Pulse Ox 37.1 C 94 18 111/69 91 L 10/21/18 07:51 10/21/18 07:51 10/21/18 07:51 10/21/18 07:51 10/21/18 07:51 10/20/18 10/21/18 10/22/18 05:59 05:59 05:59 Intake Total 600 Output Total 500 280 Balance -500 320 PT 12.7 SEC (12.0-15.0) 10/16/18 07:45 INR 0.99 (0.83-1.16) 10/16/18 07:45 ICD10 Worksheet Patient Problems: Problems Problem Status Onset Abscess of right leg Acute
--- NOTE | 2018-10-23 16:48 | GOP ---
[f rep st] OPERATIVE REPORT DATE OF OPERATION: SURGEON: Maria Del Carmen Barnard MD LACE MACHINE OPERATOR: MOISES Quiñones. ANESTHESIA: General. ANESTHESIOLOGIST: Geri Mckeon MD. PREOPERATIVE DIAGNOSIS: Bilateral inguinal hernia. POSTOPERATIVE DIAGNOSIS: Bilateral inguinal hernia. PROCEDURE PERFORMED: Bilateral open inguinal hernia repair with mesh. FINDINGS: Giant small bowel containing left inguinal hernia. On the right side, colon was contained within the hernia. SPECIMENS: Left inguinal hernia sac. ESTIMATED BLOOD LOSS: Minimal. INDICATIONS: The patient is an 78-year-old man who has had hernia, bilateral, for over 30 years. Ov er time, his small bowel has gone into the left side. He presents for repair. DESCRIPTION OF PROCEDURE: Patient was brought into the operating room, placed supine on the table, a nd general anesthesia was administered. His abdomen, testicles, and penis were prepped and draped in the usual sterile fashion. Infiltrated all sites with 0.5% Marcaine prior to making incisions. I m akash a skin crease incision with a knife and deepened this through Marquita's and Camper's fascia with e lectrocautery until the aponeurosis of the external oblique was encountered. This was cleaned, and t he external ring was exposed. Hemostasis achieved. I made an incision in the aponeurosis and the il ioinguinal nerve was identified and protected. Flaps of the external oblique were developed. He had a very large hernia sac. The cord was identified and dissected free and encircled with Cassi drai n. I was able to deliver the majority of the small bowel from the left testicle into the field and t hen return this into the abdominal cavity. During this time, the cord and cord structures were prote cted. Redundant sac was excised and submitted to Pathology. The stump of the sac was checked for he mostasis. I then placed ProGrip mesh to recreate the floor of the inguinal canal. I sutured this at the pubic tubercle and then to the inferior ligament inferiorly and conjoined tendon superiorly. I placed the mesh in a relaxed fashion to avoid excessive tension, and then the tails of the mesh were crossed, and the internal ring recreated for passage of the 5th finger tip. Hemostasis was achieved. The [place] drain was removed. I placed a 15 round silicone drain directed into his scrotum. The external oblique aponeurosis was closed with 3-0 Vicryl. I closed Marquita's with 3-0 Vicryl. I close d skin with 3-0 Vicryl followed by 4-0 Monocryl. Mastisol, Steri-Strips, sterile dressings were appl ied. In a similar fashion, I fixed the hernia on the right side. Although this was much smaller, this con tained colon. The colon was returned to the abdominal cavity and was viable. In a similar fashion, I recreated the floor of the hernia. The patient was awakened in the operating room, extubated, ocampo sferred to PACU in stable condition. /[id number]/MODL
== END 2018-10-21 13:24 | DRG 351 ==
LOC: F3E 07:01 → OBSVTOIN 10-17 14:20
PROVIDERS: ADMIT Surgery; ATTEND Surgery
PROC: 0YUA0JZ Supplement Bilateral Inguinal Region with Synthetic Substitute, Open Approach (ICD-10-PCS; principal; 2018-10-16 09:00)
DX: K40.20 Bilateral inguinal hernia, without obstruction or gangrene, not specified as recurrent (principal); K56.7 Ileus, unspecified; I48.91 Unspecified atrial fibrillation; G89.29 Other chronic pain; Z85.46 Personal history of malignant neoplasm of prostate; Z86.73 Personal history of transient ischemic attack (TIA), and cerebral infarction without residual deficits
CPT/HCPCS: 97116-GP; 97162-GP; 97530-GP; C1781; J0690; J1170; J2405; J2704; J3010